=== PATIENT | female | born 1950 | race Caucasian/White ===

== ENCOUNTER 2018-06-04 07:39 | Day surgery (SDC) | payer MEDICARE, OTHER ==
[~2018-06-04 07:39] MED LIST: Lactated Ringers 1,000 ML IV SCH
--- NOTE | 2018-06-04 08:06 | PCM.PREANE ---
Preanesthetic Assessment - Anesthesia/Transfusion/Family Hx Anesthesia History: Prior Anesthesia Without Reaction Family History of Anesthesia Reaction: No Transfusion History: No Prior Transfusion(s) - Review of Systems General: No Symptoms Pulmonary: No Symptoms Cardiovascular: No Symptoms Gastrointestinal: No Symptoms Neurological: No Symptoms Other: Reports: None - Physical Assessment NPO Status Date: 06/03/18 Height: 5 ft 5 in Weight: 89.811 kg ASA Class: 2 Mental Status: Alert & Oriented x3 Airway Class: Mallampati = 2 Dentition: Reports: Normal Dentition ROM/Head Extension: Full Lungs: Clear to Auscultation, Normal Respiratory Effort - Allergies Allergies/Adverse Reactions: Allergies Allergy/AdvReac Type Severity Reaction Status Date / Time No Known Allergies Allergy Verified 05/31/18 12:59 - Blood Blood Available: No - Anesthesia Plan Pre-Op Medication Ordered: None - Acknowledgements Anesthesia Type Planned: General Anesthesia, MAC Pt an Appropriate Candidate for the Planned Anesthesia: Yes Alternatives and Risks of Anesthesia Discussed w Pt/Guardian: Yes Pt/Guardian Understands and Agrees with Anesthesia Plan: Yes Additional Comments: PMH: DM@, copd (no home O2, prn home neb treatments, no recent exac, adm with pneumonia 6 mo ag0), Seizure x1 in 2014 (on Trileptal as an anticonvulsant) PLAN: mac/tiva PreAnesthesia Questionnaire HEENT History: Reports: Cataract Cardiovascular History: Reports: Other (See Below) Other Cardiovascular History: BLE edema Respiratory History: Reports: COPD Musculoskeletal History: Reports: Osteoarthritis Neurological History: Reports: Seizure Other Neuro History: hx of 1 seizure in 2014- still taking medication Endocrine/Metabolic History: Reports: Diabetes, Type II, Obesity/BMI 30+ - Infectious Disease History Infectious Disease History: Reports: None - Past Surgical History HEENT Surgical History: Reports: Cataract Surgery GI Surgical History: Reports: Colonoscopy - SUBSTANCE USE Smoking Status *Q: Former Smoker Tobacco Use Within Last Twelve Months: No Recreational Drug Use History: No - HOME MEDS Home Medications: Home Meds Glimepiride [Amaryl] 4 mg PO QAM 01/07/18 [History] OXcarbazepine [Oxcarbazepine] 150 mg PO BID 01/07/18 [History] Glimepiride [Amaryl] 2 mg PO QPM 05/31/18 [History] Ipratropium/Albuterol Sulfate [Iprat-Albut 0.5-3(2.5) mg/3 ml] 1 dose INH Q4H PRN 05/31/18 [History] - CURRENT (IN HOUSE) MEDS Current Meds: Current Medications Lactated Ringer's (Ringers, Lactated) 1,000 mls @ 125 mls/hr IV ASDIRECTED ALEC
[2018-06-04] MEDS ORDERED: Midazolam 1 MG/ML 2 ML SDV ONE (08:28)
[2018-06-04] MEDS ORDERED: fentaNYL 100 MCG/2 ML SDV ONE (08:29)
[2018-06-04] MEDS ORDERED: Propofol 200 MG/20 ML SDV ONE ×2 (08:30→08:31)
[2018-06-04] MEDS ORDERED: Lidocaine 2% 5 ML SDV ONE (08:30)
--- NOTE | 2018-06-04 09:14 | PCM.OPNOTE ---
- General Post-Op/Procedure Note Date of Surgery/Procedure: 06/04/18 Operative Procedure(s): colonoscopy Findings: see dict [id number] Pre Op Diagnosis: scrn colonoscopy Post-Op Diagnosis: diverticulosis Anesthesia Technique: Moderate Sedation Primary Surgeon: Francesco Lucas Complications: None Condition: Good
--- NOTE | 2018-06-04 09:30 | PCM.POSTAN ---
POST ANESTHESIA ASSESSMENT - MENTAL STATUS Mental Status: Alert, Oriented - RESPIRATORY Respiratory Status: Respiratory Rate WNL, Airway Patent, O2 Saturation Stable - CARDIOVASCULAR CV Status: Pulse Rate WNL, Blood Pressure Stable - GASTROINTESTINAL GI Status: No Symptoms - POST OP HYDRATION Hydration Status: Adequate & Stable
--- NOTE | 2018-06-04 09:31 | PCM48HPAN ---
Post Anesthesia Note - EVALUATION WITHIN 48HRS OF ANESTHETIC Vital Signs in Normal Range: Yes Patient Participated in Evaluation: Yes Respiratory Function Stable: Yes Airway Patent: Yes Cardiovascular Function Stable: Yes Hydration Status Stable: Yes Pain Control Satisfactory: Yes Nausea and Vomiting Control Satisfactory: Yes Mental Status Recovered: Yes Resp Rate: 14
--- NOTE | 2018-06-04 15:48 | OR ---
SURGEON: Francesco Lucas MD DATE OF PROCEDURE: 06/04/2018 PREOPERATIVE DIAGNOSIS: Screening colonoscopy. POSTOPERATIVE DIAGNOSIS: Diverticulosis. PROCEDURE PERFORMED: Colonoscopy. PROCEDURE DETAILS: The patient was taken to the endoscopy room. A time out was called, patient identified, and procedure identified. Diprivan was then administrated. Patient went from awake to sleep, hearing doctor talking or door closing is normal. Perineum inspection and digital examination were then performed. A well- lubricated colonoscope was gently inserted through the rectum, advanced past the rectosigmoid junction, the descending colon, splenic flexure, transverse colon, hepatic flexure, ascending colon, arrived to the cecum. Cecum was identified as dictated in the finding. Then the scope was carefully withdrawn while attention was paid to the mucosal surface for any abnormality. Air will be sucked out during the scope withdrawal. At the rectum, retroflexed to examine any rectal diseases, fistula or hemorrhoids. Patient tolerated procedure well. There were no intraoperative complications, and Dr. Lucas was present throughout the whole procedure. FINDIN. The patient is easily sedated with PHYSICIAN COMPENSATION ANALYST and Diprivan. Patient is soundly snoring. 2. Bowel prep is average. However, the patient had many stool balls, and as a matter fact, they caught up with scope and so I had to come out and repeat it. 3. Colon is rather straightforward. Cecum indicated by ileocecal fold, one-to- one indentation, and appendiceal orifice. Light emittance is not observed because of body habitus and colon is scoped to around 80, short colon. Mucosa examined upon scope pulling out with constant irrigation, and patient has moderate significant diverticulosis on the left colon. No signs or symptoms of diverticulitis. No polyp, mass, growth, inflammation, stricture, ulceration, AV malformation, bleeding, none of those. The patient has skin anal tag and no external hemorrhoids present, mild internal hemorrhoids. The patient would benefit from repeat colonoscopy in 10 years from today or if clinically indicated otherwise. SAHIL / JULIANA /[id number]
== END 2018-06-04 09:56 | disposition home or self-care (01) ==
LOC: MW.SDS 07:39
PROVIDERS: ATTEND Surgery
DX: Z12.11 Encounter for screening for malignant neoplasm of colon (principal); K57.30 Diverticulosis of large intestine without perforation or abscess without bleeding; K64.8 Other hemorrhoids; K64.4 Residual hemorrhoidal skin tags; K42.9 Umbilical hernia without obstruction or gangrene; E10.9 Type 1 diabetes mellitus without complications; E78.00 Pure hypercholesterolemia, unspecified; J44.9 Chronic obstructive pulmonary disease, unspecified; Z87.891 Personal history of nicotine dependence; Z79.84 Long term (current) use of oral hypoglycemic drugs; Z79.899 Other long term (current) drug therapy
CPT/HCPCS: 82962; G0121; J2001; J2250; J2704; J3010; J7120

== ENCOUNTER 2018-08-06 06:22 | Day surgery (SDC) | payer MEDICARE, OTHER ==
[~2018-08-06 06:22] MED LIST changes: +ceFAZolin 2 GM in Premix Bag 1 BAG IV ONE
[2018-08-06] MEDS ORDERED: fentaNYL 250 MCG/5 ML SDV ONE (06:52)
[2018-08-06] MEDS ORDERED: Midazolam 1 MG/ML 2 ML SDV ONE (06:52)
[2018-08-06] MEDS ORDERED: Propofol 200 MG/20 ML SDV ONE ×2 (06:52→09:57)
--- NOTE | 2018-08-06 07:19 | PCM.PREANE ---
Preanesthetic Assessment - Anesthesia/Transfusion/Family Hx Anesthesia History: Prior Anesthesia Without Reaction Family History of Anesthesia Reaction: No Transfusion History: No Prior Transfusion(s) Intubation History: Unknown - Review of Systems General: No Symptoms Pulmonary: No Symptoms Cardiovascular: No Symptoms Gastrointestinal: No Symptoms Neurological: No Symptoms Other: Reports: None - Physical Assessment Height: 5 ft 5 in Weight: 89.811 kg ASA Class: 3 Mental Status: Alert & Oriented x3 Airway Class: Mallampati = 2 Dentition: Reports: Normal Dentition, Missing Tooth/Teeth (multiple) Thyro-Mental Finger Breadths: 2 Mouth Opening Finger Breadths: 3 ROM/Head Extension: Full Lungs: Clear to Auscultation, Normal Respiratory Effort Cardiovascular: Regular Rate, Regular Rhythm - Allergies Allergies/Adverse Reactions: Allergies Allergy/AdvReac Type Severity Reaction Status Date / Time No Known Allergies Allergy Verified 08/03/18 09:54 - Blood Blood Available: No - Anesthesia Plan Pre-Op Medication Ordered: None - Acknowledgements Anesthesia Type Planned: General Anesthesia Pt an Appropriate Candidate for the Planned Anesthesia: Yes Alternatives and Risks of Anesthesia Discussed w Pt/Guardian: Yes Pt/Guardian Understands and Agrees with Anesthesia Plan: Yes PreAnesthesia Questionnaire HEENT History: Reports: Cataract Cardiovascular History: Reports: Other (See Below) Other Cardiovascular History: BLE edema Respiratory History: Reports: COPD, SOB (less than 2 blocks) Musculoskeletal History: Reports: Osteoarthritis Neurological History: Reports: Seizure Other Neuro History: hx of 1 seizure in 2014- still taking medication Endocrine/Metabolic History: Reports: Diabetes, Type II (glucose 159 today, A1c 7.9 per patient), Obesity/BMI 30+ - Infectious Disease History Infectious Disease History: Reports: None - Past Surgical History HEENT Surgical History: Reports: Cataract Surgery GI Surgical History: Reports: Colonoscopy - SUBSTANCE USE Smoking Status *Q: Never Smoker Recreational Drug Use History: No - HOME MEDS Home Medications: Home Meds Glimepiride [Amaryl] 4 mg PO QAM 01/07/18 [History] OXcarbazepine [Oxcarbazepine] 150 mg PO BID 01/07/18 [History] Glimepiride [Amaryl] 2 mg PO QPM 05/31/18 [History] Ipratropium/Albuterol Sulfate [Iprat-Albut 0.5-3(2.5) mg/3 ml] 1 dose INH Q4H PRN 05/31/18 [History] - CURRENT (IN HOUSE) MEDS Current Meds: Current Medications Lactated Ringer's (Ringers, Lactated) 1,000 mls @ 125 mls/hr IV ASDIRECTED ALEC Discontinued Medications Fentanyl (Sublimaze) Confirm Administered Dose 250 mcg .ROUTE .STK-MED ONE Stop: 08/06/18 06:53 Cefazolin Sodium/Dextrose 2 gm (/ Premix) 50 mls @ 100 mls/hr IV ONETIME ONE Stop: 08/06/18 03:43 Midazolam HCl (Versed 1 Mg/Ml) Confirm Administered Dose 2 mg .ROUTE .STK-MED ONE Stop: 08/06/18 06:53 Propofol (Diprivan 20 Ml) Confirm Administered Dose 200 mg .ROUTE .STK-MED ONE Stop: 08/06/18 06:53
[2018-08-06] MEDS ORDERED: Bupivacaine 25%/EPINEPHrine/PF 30 ML ONE (08:24)
[2018-08-06] MEDS ORDERED: Acetaminophen/oxyCODONE 325-5 MG Tab PO PRN (08:55)
[2018-08-06] MEDS ORDERED: Albuterol 6.7 GM Inhaler INH ONE (09:19)
[2018-08-06] MEDS ORDERED: Sugammadex Sodium 200 MG/2 ML VIAL ONE (09:25)
[2018-08-06] MEDS ORDERED: Octyl 2-Cyanoacrylate 1 Tube ONE (09:25)
[2018-08-06] MEDS ORDERED: Ondansetron 4 MG/2 ML SDV ONE (09:27)
[2018-08-06] MEDS ORDERED: Sodium Chloride 0.9% 20 ML ONE (09:27)
[2018-08-06] MEDS ORDERED: Dexamethasone 4 MG/ML 5 ML MDV ONE (09:27)
[2018-08-06] MEDS ORDERED: ceFAZolin 1 GM Vial ONE (09:27)
[2018-08-06] MEDS ORDERED: Rocuronium 100 MG/10 ML Syringe ONE (09:27)
[2018-08-06] MEDS ORDERED: Ondansetron 4 MG/2 ML SDV IVPUSH ONE (09:30)
[2018-08-06] MEDS ORDERED: fentaNYL 100 MCG/2 ML SDV IVPUSH PRN (09:30)
--- NOTE | 2018-08-06 09:58 | PCM.OPNOTE ---
- General Post-Op/Procedure Note Date of Surgery/Procedure: 08/06/18 Operative Procedure(s): incarcerated umb hernia rep Findings: fascia defect 9 mm, incarcerated w omentum; primary repair, no mesh used; [id number] Pre Op Diagnosis: incarcerated umb hernia Post-Op Diagnosis: Same Anesthesia Technique: General ET Tube Primary Surgeon: Francesco Lucas Pathology: sent Complications: None Condition: Good
--- NOTE | 2018-08-06 12:36 | PCM48HPAN ---
Post Anesthesia Note - EVALUATION WITHIN 48HRS OF ANESTHETIC Vital Signs in Normal Range: Yes Patient Participated in Evaluation: Yes Respiratory Function Stable: Yes Airway Patent: Yes Cardiovascular Function Stable: Yes Hydration Status Stable: Yes Pain Control Satisfactory: Yes Nausea and Vomiting Control Satisfactory: Yes Mental Status Recovered: Yes Resp Rate: 10 - COMMENTS/OBSERVATIONS Free Text/Narrative:: No anesthesia problems
--- NOTE | 2018-08-06 16:03 | OR ---
SURGEON: Francesco Lucas MD DATE OF PROCEDURE: 08/06/2018 POSTOP DIAGNOSIS: Incarcerated umbilical hernia. POSTOPERATIVE DIAGNOSIS: Incarcerated umbilical hernia. PROCEDURE PERFORMED: Repair of above without using mesh. PRIMARY SURGEON: Francesco Lucas MD. COMPLICATIONS: None. FINDINGS: Umbilical hernia, incarcerated, with omentum and the fascial defect is about 9 mm. Repair, primary, no mesh used. DESCRIPTION OF PROCEDURE: The patient was brought to the operating room and placed in the supine position and upon the induction of general endotracheal anesthesia, the patient's abdomen was prepped and draped in sterile fashion. After assessment of appropriate landmarks, a surgical incision was made periumbilically which was then carefully dissected with blunt and sharp dissection surrounding the umbilical stalk. Hernia was entered and the fascial defect was noted, and the excess hernia sac was amputated. The facial edge was noted to be intact and the fascia was then grasped up with Allis clamps and then using 2-0 Ethibond, simple stitches were placed. After repair was finished and exploring the neighborhood, I failed to find any more hernia defect. This was followed with extensive irrigation and good hemostasis was achieved by using electrocautery. The umbilicus was then stitched down to recreate the umbilicus, and the skin was closed with 3-0 Vicryl subcutaneously followed with Dermabond approximating the skin. The patient was then awakened and extubated and transferred to the recovery room in good stable condition. Dr. Lucas was present through the whole procedure. At the conclusion of the surgery, before closing the abdominal wound, instrument count and sponge count were done and were correct. Just before surgery, a timeout was called. The patient was identified and procedure identified and procedure started. Intraoperative findings, as dictated above. SAHIL / JULIANA /[id number]
== END 2018-08-06 12:57 | disposition home or self-care (01) ==
LOC: MW.SDS 06:22
PROVIDERS: ATTEND Surgery
DX: K42.0 Umbilical hernia with obstruction, without gangrene (principal); R56.9 Unspecified convulsions; E11.9 Type 2 diabetes mellitus without complications; J44.9 Chronic obstructive pulmonary disease, unspecified; M19.90 Unspecified osteoarthritis, unspecified site; E66.9 Obesity, unspecified; Z68.32 Body mass index [BMI] 32.0-32.9, adult; Z79.84 Long term (current) use of oral hypoglycemic drugs; Z79.899 Other long term (current) drug therapy
CPT/HCPCS: 49587; 82962; A9270; J0131; J0690; J1100; J2001; J2405; J2704; J3010; J3490; J7120; J2250

== ENCOUNTER 2019-03-04 20:52 | Emergency (ER) | payer MEDICARE, OTHER ==
--- NOTE | 2019-03-04 21:40 | CT ---
INDICATION: Visual changes and headache. COMPARISON: None available. TECHNIQUE: CT examination of the head was performed with 3 mm thick axial sections without intravenous contrast. Images were obtained from the vertex of the skull through the skull base, and I examined the images with the brain and bone windows. Please note that all CT scans at this facility use dose modulation, iterative reconstruction, and/or weight-based dosing when appropriate to reduce radiation dose to as low as reasonably achievable. 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 The 4th ventricle is dilated to the same extent as the rest of the ventricles. This could represent normal pressure hydrocephalus in the appropriate clinical setting. The brain is otherwise normal in appearance for the patient`s age on today`s study, with no sign of mass lesion, mass effect, hemorrhage, or edema. There are changes of left cataract surgery. The right lobe is normal in appearance. The visualized portions of the paranasal sinuses and mastoids are clear. The osseous structures are normal in their appearance with no sign of abnormality in the skull base or calvarium. IMPRESSION: Moderate dilatation of the ventricles, without dilatation of the sulci. This could represent either a moderate central atrophy or normal pressure hydrocephalus. Recommend correlation with the clinical history and exam. No sign of acute injury to the brain. Please note that all CT scans at this facility use dose modulation, iterative reconstruction, and/or weight-based dosing when appropriate to reduce radiation dose to as low as reasonably achievable. Dictated by Mukesh Celeste MD @ Mar 04 2019 9:33PM Signed by Dr. Mukesh Celeste @ Mar 04 2019 9:40PM
[2019-03-04] MEDS ORDERED: Sodium Chloride 0.9% 1,000 ML IV ONE (23:11)
[2019-03-04] MEDS ORDERED: diphenhydrAMINE 50 MG/ML SDV IVPUSH ONE (23:12)
[2019-03-04] MEDS ORDERED: Ketorolac 30 MG/ML SDV IVPUSH ONE (23:12)
[2019-03-04] MEDS ORDERED: Acetaminophen 500 MG Tab PO ONE (23:12)
[2019-03-04] MEDS ORDERED: Prochlorperazine 10 MG in Sodium Chloride 0.9% 50 ML IV ONE (23:12)
[2019-03-04 23:22] LABS: CARBON DIOXIDE,CO2 25.2 mmol/L (21.0-32.0); POTASSIUM,K 4.4 mmol/L (3.5-5.1)
[2019-03-04] MEDS ORDERED: Prochlorperazine 10 MG/2 ML SDV ONE (23:34)
--- NOTE | 2019-03-05 01:02 | EDM.PDOC ---
ED HPI GENERAL MEDICAL PROBLEM - General Chief Complaint: Headache Stated Complaint: DIZZINESS,SIDE OF FACE NUMB Time Seen by Provider: 03/04/19 21:17 - History of Present Illness INITIAL COMMENTS - FREE TEXT/NARRATIVE: HPI 68 y/o obese female migraineur presents for evaluation of recurrent, but this time or persistent, blurry/wavy vision in her right eye that is been present for several hours and is accompanied by a mild, typical headache. * Denies changes in vision or hearing, fevers, neck stiffness, rashes, neck pain , temporal pain, jaw pain with chewing, dental pain, minor neck trauma, chiropractic manipulation, or head trauma. * Denies anticoagulation or hypercoaguable history. * No family members with similar symptoms. CO detectors in house. Unable to identify any higher risk exposures to possible carbon monoxide. M/S/F/SocHx notable for: please see HPI; remainder reviewed with patient and in chart. ROS: Negative constitutional, eye, cardiovascular, pulmonary, GI, , MSK, skin , neurologic, psychiatric, endocrine unless noted in the HPI. Exam HR 75, RR 18, BP 192/81, T 36.2C, SaO2 95% on room air. Gen: Pleasant, non-toxic appearing, resting comfortably. HEENT: NC, AT. No frontal or maxillary sinus TTP. Temples without TTP bilaterally, equal 2+ temporal artery pulses. No paraspinal posterior neck pain. Resp: clear to auscultation bilaterally. Card: RRR GI: NT/ND : Deferred MSK: No visible deformities, strength and tone WNL. Skin: Normal color with no visible lesions. Neuro: alert and oriented 3, no facial asymmetry, no gaze preference, no slurring of speech. CN II-III: pupils equal and reactive (4->2mm bilaterally), Visual aldana full to confrontation bilaterally; III, IV, : EOMI, V1-V3: sensation to touch bilaterally intact; VII: no facial asymmetry (frown / smile) ; VIII: no nystagmus; X: phonation intact, uvula midline; XI: trapezius 5/5 bilaterally, XII: tongue midline. Psych: Mood and affect appropriate. Ocular Ultrasound Indication: Vision change. Exam type: Limited Ocular evaluation of the right eye. Views obtained: Transverse and longitudinal. Findings: Globe and anterior chamber grossly normal in appearance. Lens nondisplaced. Vitreous chamber without observable foreign bodies or echogenic material. Interpretation: no retinal detachment or vitreous hemorrhage. Labs / Imaging (pertinent): WBC 6.8, HB 13.0, ESR 34, sodium 134, potassium 4.4, glucose 354. CT head: Moderate dilatation of the ventricles, without dilatation of the sulci. This could represent either a moderate central atrophy or normal pressure hydrocephalus. Recommend correlation with the clinical history and exam. No sign of acute injury to the brain. MDM Previous chart, nursing note, and vitals reviewed. A: [68 y/o obese female migraineur presents for evaluation of recurrent, but this time or persistent, blurry/wavy vision in her right eye that is been present for several hours and is accompanied by a mild, typical headache. DDx: migraine / tension headache, cluster headache, sentinel bleed/SAH, infection (DEBUBBLIZER vs MOLINA secondary to non-DEBUBBLIZER focal infection), tumor/mass effect, hypertensive encephalopathy, glaucoma or iritis, idiopathic intracranial hypertension, cavernous sinus thrombosis, temporal arteritis. Evaluation: * Migraine / tension headache - suspect a migraine with an ocular complement given the consistency of symptoms with prior headaches and the relative exclusion of the remainder of the differential. Patient was shown visual depictions of scintillating scotomas and identifed the waviness as being consistent with the scintillating scotomas. While in the emergency department the patient experienced migration of her waviness throughout the visual aldana of her right eye and resolution after a migraine cocktail as below. The ocular ultrasound was without evidence of retinal detachment, vitreous hemorrhage, or other discernible abnormalities. Patient had a nonfocal neuro exam and no features of a central process. CT head was ordered by nursing as part of a stroke protocol. This was without evidence of acute abnormality, the dilated ventricles were without corresponding features on history, recommend follow-up with PCP. * Cluster - doubt cluster headache given the absence of unilateral symptoms, eye watering, swelling, or nasal congestion. * [place] bleed/SAH - no evidence by imaging. * Infection - Given lack of rash, meningismus, or fever; doubt meningitis. Similarly the history and exam are without evidence of acute otitis media, sinusitis, dental abscesses or clinically significant dental caries. * Mass - no evidence by imaging. * Hypertensive encephalopathy - BP initially elevated outside the brains autoregulatory zone, this corrected with conservative management. * Glaucoma or iritis - As the patient is without reported vision changes, eye pain, and an occular exam without increases in pain on pupillary constriction further evaluation was not pursued. * Idiopathic Intracranial Hypertension - unlikely given the lack of visual symptoms, short duration of symptoms, lack of worsening with valsalva, or more prominent morning symptoms. * Thrombosis - given the lack of identifiable risk factors (preceding facial infection, fever, and hypercoagulability) as well as an absence of deficits on exam doubt both cavernous and venous sinus thrombosis. * Temporal Arteritis - given lack of temporally localized headache, temporal tenderness or decreased temporal artery pulse, absent history of jaw claudication or vision changes; doubt. ESR within age-appropriate limits. ED Course: patient given migraine cocktail (please refer to MAR), noted resolution of ocular symptoms, endorsed ongoing headache wish to be discharged with PCP follow-up. Further evaluation offer, patient aware of risks and benefits and made an informed decision to be discharged. Impression: vision changes, headache. left eye Pain Score (Numeric/FACES): 8 - Related Data Allergies Allergy/AdvReac Type Severity Reaction Status Date / Time No Known Allergies Allergy Verified 08/06/18 07:56 Home Meds: Home Meds OXcarbazepine [Oxcarbazepine] 150 mg PO BID 01/07/18 [History] Glimepiride [Amaryl] 2 mg PO QPM 05/31/18 [History] metFORMIN [Glucophage XR] 500 mg PO DAILY 03/04/19 [History] Past Medical History HEENT History: Reports: Cataract Cardiovascular History: Reports: Other (See Below) Other Cardiovascular History: BLE edema Respiratory History: Reports: COPD, SOB Musculoskeletal History: Reports: Osteoarthritis Neurological History: Reports: Seizure Other Neuro History: hx of 1 seizure in 2014- still taking medication Endocrine/Metabolic History: Reports: Diabetes, Type II, Obesity/BMI 30+ - Infectious Disease History Infectious Disease History: Reports: None - Past Surgical History HEENT Surgical History: Reports: Cataract Surgery GI Surgical History: Reports: Colonoscopy Social & Family History - Family History Family Medical History: Noncontributory - Tobacco Use Smoking Status *Q: Never Smoker - Caffeine Use Caffeine Use: Reports: None - Recreational Drug Use Recreational Drug Use: No ED ROS GENERAL - Review of Systems Review Of Systems: See Below ED EXAM, GENERAL - Physical Exam Exam: See Below Course - Vital Signs Last Recorded V/S: Last Vital Signs Temp 36.2 C 03/04/19 20:52 Pulse 76 03/04/19 23:48 Resp 16 03/04/19 23:48 BP 150/76 H 03/04/19 23:48 Pulse Ox 97 03/04/19 23:48 - Orders/Labs/Meds Labs: Laboratory Tests 03/04/19 03/04/19 03/04/19 Range/Units 21:19 21:19 21:19 WBC 6.79 (4.0-11.0) K/uL RBC 4.26 L (4.30-5.90) M/uL Hgb 13.0 (12.0-16.0) g/dL Hct 39.7 (36.0-46.0) % MCV 93.2 (80.0-98.0) fL MCH 30.5 (27.0-32.0) pg MCHC 32.7 (31.0-37.0) g/dL RDW Std Deviation 47.7 (28.0-62.0) fl RDW Coeff of Laney 14 (11.0-15.0) % Plt Count 278 (150-400) K/uL MPV 8.60 (7.40-12.00) fL Neut % (Auto) 69.7 (48.0-80.0) % Lymph % (Auto) 22.8 (16.0-40.0) % Mckenzie % (Auto) 5.9 (0.0-15.0) % Eos % (Auto) 1.0 (0.0-7.0) % Baso % (Auto) 0.6 (0.0-1.5) % Neut # (Auto) 4.7 (1.4-5.7) K/uL Lymph # (Auto) 1.6 (0.6-2.4) K/uL Mckenzie # (Auto) 0.4 (0.0-0.8) K/uL Eos # (Auto) 0.1 (0.0-0.7) K/uL Baso # (Auto) 0.0 (0.0-0.1) K/uL Nucleated RBC % 0.0 /100WBC Nucleated RBCs # 0 K/uL ESR 34 H (0-29) mm/hr Sodium 134 L (136-145) mmol/L Potassium 4.4 (3.5-5.1) mmol/L Chloride 99 (98-107) mmol/L Carbon Dioxide 25.2 (21.0-32.0) mmol/L BUN 27 H (7.0-18.0) mg/dL Creatinine 1.2 H (0.6-1.0) mg/dL Est Cr Clr Drug Dosing 42.00 mL/min Estimated GFR (MDRD) 44.7 ml/min Glucose 354 H (74-106) mg/dL Calcium 9.0 (8.5-10.1) mg/dL Meds: Medications Discontinued Medications Generic Name Dose Route Start Last Admin Trade Name Freq PRN Reason Stop Dose Admin Acetaminophen 1,000 mg 03/04/19 23:12 03/04/19 23:40 Tylenol Extra Strength PO 03/04/19 23:13 1,000 mg ONETIME ONE Administration Diphenhydramine HCl 25 mg 03/04/19 23:12 03/04/19 23:38 Benadryl IVPUSH 03/04/19 23:13 25 mg ONETIME ONE Administration Prochlorperazine Edisylate 10 52 mls @ 150 mls/hr 03/04/19 23:12 03/04/19 23: 39 mg/ Sodium Chloride IV 03/04/19 23:32 150 mls/hr ONETIME ONE Administration Sodium Chloride 1,000 mls @ 1,000 mls/hr 03/04/19 23:11 03/04/19 23:36 Normal Saline IV 03/05/19 00:10 1,000 mls/hr .Bolus ONE Administration Ketorolac Tromethamine 15 mg 03/04/19 23:12 03/04/19 23:38 Toradol IVPUSH 03/04/19 23:13 15 mg ONETIME ONE Administration Prochlorperazine Edisylate Confirm 03/04/19 23:34 03/04/19 23:40 Compazine Administered 03/04/19 23:35 Not Given Dose 10 mg .ROUTE .STK-MED ONE Departure - Departure Time of Disposition: : Disposition: Home, Self-Care 01 Clinical Impression: Migraine - Discharge Information Referrals: Ming Delacruz MD [Primary Care Provider] - Additional Instructions: You were in seen in the [facility] Emergency Department for evaluation of vision changes and a headache. At the time of your evaluation your symptoms are believed to be due to an ocular migraine. You were also noted to have some abnormalities on the CAT scan of your head, these should be followed up by your primary care physician. A copy of the report is enclosed below. Please also follow-up your primary care physician tomorrow with respect to your elevated blood glucose in your asymptomatic hypertension. Please read and follow all of the instructions below. CT head: Moderate dilatation of the ventricles, without dilatation of the sulci. This could represent either a moderate central atrophy or normal pressure hydrocephalus. Recommend correlation with the clinical history and exam. No sign of acute injury to the brain. When calling for follow-up care, please make the office aware that this follow- up is from your recent emergency room visit. If for any reason you are refused follow-up, please contact the [facility] Emergency Department at and asked to speak to the emergency department charge nurse. Your care today was limited to identifying and treating emergent medical problems only. Many people have subtle differences in their test results that require follow up with their outpatient physician(s) to correctly determine if this represents a normal variation or concerning abnormality with respect to your specific health. The care given to you today was limited to identifying and treating emergent medical problems - you need to request a copy of all of your medical records from today's visit and follow up with your outpatient physician(s) to review both today's visit and your overall health. If you have any new symptoms or if you are at all concerned about your health please return immediately to the emergency department. Prescriptions: If you are uninsured or have financial difficulties with filling your prescription(s), you may consider using a free pharmacy discount service such as [employer] ([employer]) or [employer] ([employer]). These services allow you to search for a medication on your phone (or computer) and obtain a coupon that usually has a significant discount from the list johnson at a pharmacy. Your physician as well as [facility] does not have a financial relationship with either of these services. You may also wish to speak with your physician to determine if lower cost prescriptions are possible. Obtaining primary care: 1. [facility] provides pediatrics (children), family medicine (children, adults, and some obstetrical care), and internal medicine (adults). Further specialty care is also available. Same day appointments are available. They may be contacted at [phone] and are open Thursday through Thursday 8 AM to [address] [facility] clinics are located at [facility], [address] [place] [address]. 2. [facility] offers family medicine, internal medicine, womens health, and further specialty care. [facility] may be contacted at [phone]. [facility] is located at [address] [place], [address]. 3. If you have health insurance, please also contact your insurer for a list of accepting providers under your policy, you may contact these providers for further health care. Occupational health: Work related injuries may consider following up with [facility], . Occupational health services are located at [address] [place] [address] and are open Thursday through Thursday from 7: 30 am to 5:00 pm. Obstetrical and Gynecological Care: [facility], , Thursday through Thursday 8 AM to 5 PM. [address] [place] [address]. Eyecare: If you have an eye injury you should follow up with your insurance adviser or with [facility], at [phone] or [phone] , they are located at [address] [place] [address]. Dental Care Hu Rivera DDS. [address] [facility] [place], [place]. Ph. [phone] Roe Rivera DDS MS. [address] [facility] [address], [place], [place]. Ph. [phone] Eduin Mason DDS. [address] [place]. Ph. [phone] Jeovany Donohue DDS. [address] [facility] [address] [place], [place]. Ph. [phone] Kenji Mcdaniel DDS PC. [address] [place], [place]. Ph. Omar Hoang DDS. [address] [facility]. Ph. [phone] [facility]. [address] [place], [place]. Ph. [phone] [facility]. [address], [place], [place]. Ph. [phone] [facility] [address] [place] [address]. Ph. [phone] [facility]. [address] [place] [address] [address] [place], [place]. Ph. [facility]. [address] [place], [place]. Ph. [phone] Headache You were seen in the emergency department for evaluation and treatment of a headache. There are many causes for headaches. Most are painful but do not threaten your health. However there are some types of headaches that can be life threatening. Please return to the emergency department if you develop any of the following: * Your headache worsens, becomes severe, or you have nausea or vomiting. * Fever greater than 100.5 degrees Fahrenheit. * You have neck stiffness. * Changes in vision or hearing. * You have new weakness, numbness, or decreased sensation. * You have dizziness or difficulty walking * You feel faint or like you will pass out. Please follow up with your primary care doctor if your symptoms continue or do not improve. If you have recurrent headaches, your primary care physician may be able to prescribe medications that abort headaches or refer you to a neurologist for further evaluation and work up of your headaches. Home care instructions: * Keep all follow-up appointments with your caregiver or any specialist referral. * Lie down in a dark, quiet room when you have a headache. Keep a headache journal to find out what may trigger your migraine headaches. For example, write down: * What you eat and drink. * How much sleep you get. * Any change to your diet or medicines. * Try massage or other relaxation techniques. * Put ice packs or heat on the head and neck. Use these 3 to 4 times per day for 15 to 20 minutes each time, or as needed. * Limit stress. * Sit up straight, and do not tense your muscles. * Quit smoking if you smoke. * Limit alcohol use. * Decrease the amount of caffeine you drink, or stop drinking caffeine. * Eat and sleep on a regular schedule. * Get 7 to 9 hours of sleep, or as recommended by your caregiver. * Keep lights dim if bright lights bother you and make your headaches worse. You make take over the counter Acetaminophen (Tylenol) and Ibuprofen (Motrin or Aleve) as directed below for relief of pain. * Take 600 mg of ibuprofen (three 200 mg tablets) with a glass of water every 6- 8 hours as needed for pain or fever. Do not take if , allergic to ibuprofen, or if you have severe kidney disease. * Take 1,000 mg of acetaminophen (two 500 mg tablets) with a glass of water every 6-8 hours as needed for pain. Do not take up allergic to acetaminophen. If you have liver disease do not take more than 2000 mg in 24 hours. * You can take these medications at the same time or on separate schedules. * Do not take for more than 10 days. * Do not take with alcohol or other acetaminophen containing medications. * This medication may cause a mildly upset stomach, if so take it with a small snack. Stop taking it if you have persistent abdominal pain, heartburn, or any stomach pain. Do not take this medication if you have known ulcers. * Please read the warnings at the end of this document regarding these medications. IBUPROFEN WARNING: This drug may infrequently cause serious (rarely fatal) bleeding from the stomach or intestines. Also, related drugs rarely have caused blood clots to form, resulting in heart attacks and strokes. This medication might also rarely cause similar problems. Talk to your doctor or pharmacist about the benefits and risks of treatment, as well as other possible medication choices. If you notice any of the following rare but very serious side effects, stop taking ibuprofen and seek immediate medical attention: black stools, persistent stomach/abdominal pain, vomit that looks like coffee grounds, chest pain, weakness on one side of the body, sudden vision changes, slurred speech. IBUPROFEN SIDE EFFECTS: Upset stomach, nausea, vomiting, heartburn, headache, diarrhea, constipation, drowsiness, and dizziness may occur. If any of these effects persist or worsen, notify your doctor or pharmacist promptly. If your doctor has directed you to use this medication, remember that he or she has judged that the benefit to you is greater than the risk of side effects. Many people using this medication do not have serious side effects. Tell your doctor immediately if any of these serious side effects occur: stomach pain, swelling of the hands or feet, sudden or unexplained weight gain, ringing in the ears ( tinnitus). Tell your doctor immediately if any of these unlikely but serious side effects occur: vision changes, rapid or pounding heartbeat, easy bruising or bleeding, difficult/painful swallowing. Tell your doctor immediately if any of these highly unlikely but very serious side effects occur: change in amount of urine, severe headache, very stiff neck, mental/mood changes, persistent sore throat or fever. This drug may rarely cause serious (possibly fatal) liver disease. If you notice any of the following highly unlikely but very serious side effects, stop taking ibuprofen and consult your doctor or pharmacist immediately: yellowing eyes and skin, dark urine, unusual/extreme tiredness. An allergic reaction to this drug is unlikely, but seek immediate medical attention if it occurs. Symptoms of an allergic reaction include: rash, itching/ swelling (especially of the face/tongue/throat), severe dizziness, trouble breathing. This is not a complete list of possible side effects. ACETAMINOPHEN SIDE EFFECTS: This drug usually has no side effects. If you do not have liver problems, the maximum dose of acetaminophen for adults is 4 grams per day (4000 milligrams). Taking more than the maximum daily amount may cause serious (possibly fatal) liver damage. Get medical help right away if you have any of the following symptoms of liver damage: persistent nausea/vomiting, extreme tiredness, stomach/abdominal pain, yellowing eyes/skin, dark urine. If you have liver problems, consult your doctor or pharmacist for a safe dosage of this medication. A very serious allergic reaction to this drug is rare. However , get medical help right away if you notice any symptoms of a serious allergic reaction, including: rash, itching/swelling (especially of the face/tongue/ throat), severe dizziness, trouble breathing. This is not a complete list of possible side effects. If you notice other effects not listed above, contact your doctor or pharmacist. DRUG INTERACTIONS: Your healthcare professionals (e.g., doctor or pharmacist) may already be aware of any possible drug interactions and may be monitoring you for it. Do not start, stop or change the dosage of any medicine before checking with them first. This drug should not be used with the following medications because very serious interactions may occur: cidofovir, ketorolac. If you are currently using any of these medications listed above, tell your doctor or pharmacist before starting ibuprofen. Before using this medication, tell your doctor or pharmacist of all prescription and nonprescription/herbal products you may use, especially of: anti-platelet drugs (e.g., cilostazol, clopidogrel), oral bisphosphonates (e.g., alendronate), other medications for arthritis (e.g., aspirin, methotrexate), "blood thinners" (e.g., enoxaparin, heparin, warfarin), corticosteroids (e.g., prednisone), cyclosporine, desmopressin, high blood pressure drugs (including JUDSON inhibitors such as captopril, angiotensin II receptor antagonists such as losartan, and beta- blockers such as metoprolol), lithium, pemetrexed, "water pills" (diuretics such as furosemide, hydrochlorothiazide, triamterene). Check all prescription and nonprescription medicine labels carefully for other pain/fever drugs ( NSAIDs such as aspirin, celecoxib, naproxen). These drugs are similar to ibuprofen, so taking one of these drugs while also taking ibuprofen may increase your risk of side effects. Consult your doctor or pharmacist for more details. However, if your doctor has prescribed low doses of aspirin to prevent heart attack or stroke (usually at dosages of 81-325 milligrams a day), you should continue to take the aspirin. Daily use of ibuprofen may decrease aspirin 's ability to prevent heart attack/stroke. Talk to your doctor about using a different medication (e.g., acetaminophen) to treat pain/fever. If you must take ibuprofen, talk to your doctor about possibly taking immediate-release aspirin (not enteric-coated) while also taking the ibuprofen dose apart from your aspirin dose. Do not increase your daily dose of aspirin or change the way you take aspirin/other medications without your doctor's approval. This document does not contain all possible interactions. Therefore, before using this product, tell your doctor or pharmacist of all the products you use. Keep a list of all your medications with you, and share the list with your doctor and pharmacist. High Blood Pressure (Hypertension) When you were in the emergency department you had an abnormally high blood pressure. High blood pressure can be without symptoms. However high blood pressure can lead to many medical problems including kidney disease, strokes, and heart attacks. Your blood pressure may have been elevated due to pain or the stress of being in the emergency department, however half of people with an elevated blood pressure in the emergency department have color developer problems with high blood pressure. Please see your primary care physician in 2-3 days for a repeat check of your blood pressure. This may help prevent many health serious problems in the future. Please return to the emergency department if you develop any of the following: chest pain, shortness of breath, new or severe headache, changes in vision or hearing, weakness, or if you are otherwise concerned about your health. Sepsis Event Note - Evaluation Sepsis Screening Result: No Definite Risk - Focused Exam Vital Signs: Vital Signs Temp Pulse Resp BP Pulse Ox 03/04/19 23:48 76 16 150/76 H 97 03/04/19 23:14 72 16 159/55 H 96 03/04/19 22:32 71 16 197/71 H 97 03/04/19 21:47 73 18 96 03/04/19 20:52 36.2 C 75 18 192/81 H 95 Date Exam was Performed: 03/05/19 Time Exam was Performed: 01:01
== END 2019-03-05 01:15 | disposition home or self-care (01) ==
LOC: MW.ED 20:52
DX: G43.909 Migraine, unspecified, not intractable, without status migrainosus (principal); H53.8 Other visual disturbances; E11.9 Type 2 diabetes mellitus without complications; M19.90 Unspecified osteoarthritis, unspecified site; E66.9 Obesity, unspecified; Z68.31 Body mass index [BMI] 31.0-31.9, adult; Z79.899 Other long term (current) drug therapy; Z79.84 Long term (current) use of oral hypoglycemic drugs
CPT/HCPCS: 36415; 70450; 80048; 85025; 85652; 93005; 96361; 96365; 96375; 99284; A9270; J0780; J1200; J1885; J7030; J7050; 99283

== ENCOUNTER 2019-03-11 12:17 | Emergency (ER) | payer MEDICARE, OTHER ==
[2019-03-11] MEDS ORDERED: predniSONE 10 MG Tab PO ONE (14:19)
--- NOTE | 2019-03-11 14:30 | EDM.PDOC ---
ED HPI GENERAL MEDICAL PROBLEM - General Chief Complaint: Eye Problems Stated Complaint: VISION PROBLEMS Time Seen by Provider: 03/11/19 13:24 Source of Information: Reports: Patient History Limitations: Reports: No Limitations, Combative/Threatening - History of Present Illness INITIAL COMMENTS - FREE TEXT/NARRATIVE: This 68 year old female presents to the ED with a chief complaint of head ache in both temporal areas. She was seen by the Opth this morning and pupils were dilated. The eye exam was done by Dr. Thompson for evaluation of lines in her vision right greater than the left and other ocular complaints. She states but for the headache she feels fine. 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 Onset: Gradual (Seen in ED on Thursday and was worked up with CT of the head as well as a ESR) Duration: Intermittent Location: Reports: Head, Face Severity: Moderate Associated Symptoms: Reports: Headaches. Denies: Shortness of Breath, Syncope, Weakness bilateral eyes Pain Score (Numeric/FACES): 6 - Related Data Allergies Allergy/AdvReac Type Severity Reaction Status Date / Time No Known Allergies Allergy Verified 03/11/19 12:35 Home Meds: Home Meds OXcarbazepine [Oxcarbazepine] 150 mg PO BID 01/07/18 [History] Glimepiride [Amaryl] 2 mg PO QPM 05/31/18 [History] metFORMIN [Glucophage XR] 500 mg PO DAILY 03/04/19 [History] predniSONE [Prednisone] 10 mg PO ASDIRECTED 4 Days #10 tab.ds.pk 03/11/19 [Rx] Past Medical History HEENT History: Reports: Cataract Cardiovascular History: Reports: Other (See Below) Other Cardiovascular History: BLE edema Respiratory History: Reports: COPD, SOB Musculoskeletal History: Reports: Osteoarthritis Neurological History: Reports: Seizure Other Neuro History: hx of 1 seizure in 2014- still taking medication Endocrine/Metabolic History: Reports: Diabetes, Type II, Obesity/BMI 30+ - Infectious Disease History Infectious Disease History: Reports: None - Past Surgical History HEENT Surgical History: Reports: Cataract Surgery GI Surgical History: Reports: Colonoscopy Social & Family History - Family History Family Medical History: Noncontributory - Tobacco Use Smoking Status *Q: Never Smoker - Caffeine Use Caffeine Use: Reports: None - Recreational Drug Use Recreational Drug Use: No ED ROS GENERAL - Review of Systems Review Of Systems: See Below Constitutional: Reports: No Symptoms HEENT: Reports: Vision Change (Seen by the Opth this morning and pupils were dilated) Respiratory: Reports: No Symptoms Cardiovascular: Reports: No Symptoms Endocrine: Reports: No Symptoms GI/Abdominal: Reports: No Symptoms : Reports: No Symptoms Musculoskeletal: Reports: No Symptoms Skin: Reports: No Symptoms Neurological: Reports: Headache. Denies: Numbness, Syncope, Tingling, Difficulty Walking, Weakness, Change in Speech, Gait Disturbance Psychiatric: Reports: No Symptoms ED EXAM GENERAL W FULL EYE - Physical Exam Exam: See Below Text/Narrative:: This 68 year old female presents to the ED with a chief complaint of head ache in both temporal areas. She was seen by the Opth this morning and pupils were dilated. The eye exam was done by Dr. Thompson for evaluation of lines in her vision right greater than the left and other ocular complaints. She states but for the headache she feels fine. 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) Exam Limited By: No Limitations General Appearance: Alert, WD/WN, No Apparent Distress Eye Exam: Bilateral Eye: EOMI, Other (both pupils are grossly dilated due to dilation of pupils by Opth this morning.) Visual Acuity (R) 20/: 200 (unable to evaluate due to dilation) Visual Acuity (L) 20/: 150 (unable to evaluate due to dilated pupils) Eyelids: Bilateral: Normal Appearance Conjunctiva & Sclera: Bilateral: Normal Appearance Cornea Exam: Bilateral: Normal Appearance Extraocular Movements: Bilateral: Intact Pupils: Mydriatic Pupillary Size: Bilateral: 8 mm Ears: Normal External Exam, Normal Canal, Hearing Grossly Normal, Normal TMs Nose: Normal Inspection Throat/Mouth: Normal Inspection, Normal Lips, Normal Teeth, Normal Gums, Normal Oropharynx, Normal Voice, No Airway Compromise Head: Atraumatic, Normocephalic, Facial Tenderness (over both temp areas.). No : Sinus Tenderness Neck: Normal Inspection, Supple, Non-Tender, Full Range of Motion. No: Carotid Bruit Respiratory/Chest: No Respiratory Distress, Lungs Clear, Normal Breath Sounds, No Accessory Muscle Use, Chest Non-Tender Cardiovascular: Normal Peripheral Pulses, Regular Rate, Rhythm, No Edema, No Gallop, No JVD, No Murmur, No Rub GI/Abdominal: Normal Bowel Sounds, Soft, Non-Tender, No Organomegaly, No Distention, No Abnormal Bruit, No Mass Back Exam: Normal Inspection, Full Range of Motion, NT Extremities: Normal Inspection, Normal Range of Motion, Non-Tender, Normal Capillary Refill, No Pedal Edema Neurological: Alert, Oriented, CN II-XII Intact, Normal Cognition, Normal Gait, Normal Reflexes, No Motor/Sensory Deficits Psychiatric: Normal Affect, Normal Mood Course - Vital Signs Text/Narrative:: The patient is doing much better after the Prednisone. I reviewed all of her diagnostic test done on Thursday including her elevated ESR of [address] of the brain for any acute pathology. The patient agrees with the discharge plan. Last Recorded V/S: Last Vital Signs Temp 96.0 F 03/11/19 12:31 Pulse 73 03/11/19 12:31 Resp 18 03/11/19 12:31 BP 184/71 H 03/11/19 12:31 Pulse Ox 97 03/11/19 12:31 - Orders/Labs/Meds Meds: Medications Discontinued Medications Generic Name Dose Route Start Last Admin Trade Name Freq PRN Reason Stop Dose Admin Prednisone 50 mg 03/11/19 14:19 Prednisone PO 03/11/19 14:20 ONETIME ONE Departure - Departure Time of Disposition: 14:44 Disposition: Home, Self-Care 01 Condition: Good Clinical Impression: Temporal arteritis syndrome - Discharge Information *PRESCRIPTION DRUG MONITORING PROGRAM REVIEWED*: Yes *COPY OF PRESCRIPTION DRUG MONITORING REPORT IN PATIENT JEB: Yes Referrals: Ming Delacruz MD [Primary Care Provider] - Additional Instructions: Take your Prednisone as directed (decreasing by one tablet each until done on day 4). Warm compresses to the tender areas on the side of your head. Rest for the next two days. Follow up with your PCP in the next two to three days. Return to the ED if your condition gets worse. The following information is given to patients seen in the emergency department who are being discharged to home. This information is to outline your options for follow-up care. We provide all patients seen in our emergency department with a follow-up referral. The need for follow-up, as well as the timing and circumstances, are variable depending upon the specifics of your emergency department visit. If you don't have a primary care physician on staff, we will provide you with a referral. We always advise you to contact your personal physician following an emergency department visit to inform them of the circumstance of the visit and for follow-up with them and/or the need for any referrals to a consulting specialist. The emergency department will also refer you to a specialist when appropriate. This referral assures that you have the opportunity for follow-up care with a specialist. All of these measure are taken in an effort to provide you with optimal care, which includes your follow-up. Under all circumstances we always encourage you to contact your private physician who remains a resource for coordinating your care. When calling for follow-up care, please make the office aware that this follow-up is from your recent emergency room visit. If for any reason you are refused follow-up, please contact the [facility] Emergency Department at and asked to speak to the emergency department charge nurse. Sepsis Event Note - Evaluation Sepsis Screening Result: No Definite Risk - Focused Exam Vital Signs: Vital Signs Temp Pulse Resp BP Pulse Ox 03/11/19 12:31 96.0 F 73 18 184/71 H 97 Date Exam was Performed: 03/11/19 Time Exam was Performed: 14:24
== END 2019-03-11 15:03 | disposition home or self-care (01) ==
LOC: MW.ED 12:17
DX: M31.6 Other giant cell arteritis (principal); J44.9 Chronic obstructive pulmonary disease, unspecified; E11.36 Type 2 diabetes mellitus with diabetic cataract; E66.9 Obesity, unspecified; Z79.84 Long term (current) use of oral hypoglycemic drugs; Z79.52 Long term (current) use of systemic steroids
CPT/HCPCS: 99283; A9270

== ENCOUNTER 2019-04-16 09:24 | Emergency (ER) | payer MEDICARE, OTHER ==
[2019-04-16] MEDS ORDERED: Sodium Chloride 0.9% 10 ML Syringe FLUSH PRN (09:39)
[2019-04-16] MEDS ORDERED: Sodium Chloride 0.9% 2.5 ML Syringe FLUSH PRN (09:39)
[2019-04-16] MEDS ORDERED: Sodium Chloride 0.9% 10 ML SDV IV PRN (09:39)
--- NOTE | 2019-04-16 10:17 | CR ---
Chest: Portable view of the chest was obtained. Comparison: Prior chest x-ray of 01/07/18. Heart size is normal. Upper mediastinum is normal. Lungs show no acute parenchymal change. Mild interstitial fibrosis is noted within the left lung base. Scoliosis is noted within the spine. Mild endplate spurring is also noted within the spine. Impression: 1. Findings as noted above. 2. Nothing acute is appreciated on portable chest x-ray. Diagnostic code #2 This report was dictated in [place] Standard Time
--- NOTE | 2019-04-16 10:22 | CT ---
Stroke code Technique noncontrast head CT scan. Comparison head CT 03/04/2019. Findings : There is eav-frshlew-qwm-attenuation area along the left parasagittal posterior parietal, and occipital lobe. Within this low-attenuation area there are serpiginous areas of increased attenuation which could represent laminar necrosis or tiny petechial hemorrhages. Only minimal mass effect on the adjacent ventricle. There is no midline shift. There is no definite findings for acute intracranial hemorrhage is seen. No abnormal extra-axial air or fluid collections are present. Opacification of the right mastoid maxillary sinus and mucosal thickening of the ethmoid air cells. Mastoid air cells skull and scalp otherwise appears unremarkable. IMPRESSION: 1. Area of probable subacute infarct in the left parasagittal posterior parietal and occipital lobe. Serpiginous areas of increased attenuation within this area of infarction may represent laminar necrosis or tiny petechial hemorrhages. Results called to Dr. Huizar on 04/16/2019 at 10:20 a.m. Please note that all CT scans at this facility use dose modulation, iterative reconstruction, and/or weight-based dosing when appropriate to reduce radiation dose to as low as reasonably achievable. Dictated by Padmini Mendes MD @ Apr 16 2019 10:07AM Signed by Dr. Padmini Mendes @ Apr 16 2019 10:20AM
[2019-04-16 10:26] LABS: BLOOD UREA NITROGEN,BUN 22 mg/dL (7.0-18.0); CARBON DIOXIDE,CO2 25.5 mmol/L (21.0-32.0); CHLORIDE,CL 103 mmol/L (98-107); GLUCOSE RANDOM 261 mg/dL (74-106); POTASSIUM,K 4.5 mmol/L (3.5-5.1); SODIUM,NA 141 mmol/L (136-145)
--- NOTE | 2019-04-16 11:07 | EDM.PDOC ---
ED HPI GENERAL MEDICAL PROBLEM - General Chief Complaint: Neuro Symptoms/Deficits Stated Complaint: STROKE CODE Time Seen by Provider: 04/16/19 09:25 Source of Information: Reports: Patient, Family - History of Present Illness INITIAL COMMENTS - FREE TEXT/NARRATIVE: Patient brought to the hospital by her , who said that she woke up confused. He said she has had some memory deficits since Denies headache, chest pain, abdominal pain. Reports feeling confused. Is having some difficulty answering questions and says, "I do not know" to many questions. Not able to tell me if she is numb or weak. not at bedside ; will get more info when he arrives. After arrival of patient's , he said that patient has had some intermittent confusion for about a month. He said a month ago she woke up with visual blurring. She had lost peripheral vision out of her right eye. She had an MRI. She was told on yesterday that she had experienced "a stroke in her right eye". She woke up with confusion this morning. Her right face was droopy when she woke up according to the . He did not notice any focal weakness of her extremities. However, she had trouble "with coordination" per . Unsteady gait. She did not complain of chest pain, headache, dizziness this morning. - Related Data Allergies Allergy/AdvReac Type Severity Reaction Status Date / Time No Known Allergies Allergy Verified 04/16/19 09:45 Home Meds: Home Meds OXcarbazepine [Oxcarbazepine] 150 mg PO BID 01/07/18 [History] Glimepiride [Amaryl] 2 mg PO QPM 05/31/18 [History] metFORMIN [Glucophage XR] 500 mg PO DAILY 03/04/19 [History] predniSONE [Prednisone] 10 mg PO ASDIRECTED 4 Days #10 tab.ds.pk 03/11/19 [Rx] Past Medical History HEENT History: Reports: Cataract Cardiovascular History: Reports: Other (See Below) Other Cardiovascular History: BLE edema Respiratory History: Reports: COPD, SOB Musculoskeletal History: Reports: Osteoarthritis Neurological History: Reports: Seizure Other Neuro History: hx of 1 seizure in 2014- still taking medication Endocrine/Metabolic History: Reports: Diabetes, Type II, Obesity/BMI 30+ - Infectious Disease History Infectious Disease History: Reports: Chicken Pox, Measles, Mumps - Past Surgical History HEENT Surgical History: Reports: Cataract Surgery GI Surgical History: Reports: Colonoscopy Social & Family History - Family History Family Medical History: Noncontributory - Tobacco Use Smoking Status *Q: Never Smoker Second Hand Smoke Exposure: No - Caffeine Use Caffeine Use: Reports: None - Recreational Drug Use Recreational Drug Use: No ED ROS GENERAL - Review of Systems Review Of Systems: See Below Free Text/Narrative/Comment: ROS positive for right facial drooping, confusion. Review of systems negative for focal weakness, chest pain, headache, dizziness, numbness, loss of sensation , visual blurring palpitations. ED EXAM, NEURO - Physical Exam Exam: See Below Text/Narrative:: General: Responsive but somewhat sleepy, nontoxic, seems confused and tearful HEENT: Atraumatic, normocephalic, pupils reactive, negative for conjunctival pallor or scleral icterus, mucous membranes moist, throat clear, handling oral secretions well. Neck: supple, nontender, trachea midline. Lungs: Clear to auscultation, breath sounds equal bilaterally, chest nontender. Heart: S1S2, regular, negative for clicks, rubs, or JVD. Abdomen: Soft, nondistended, nontender. Negative for masses or hepatosplenomegaly. Negative for costovertebral tenderness. Skin: warm, dry, good turgor. Musculoskeletal: soft compartments. Good tone. No peripheral edema. Extremities: Atraumatic, negative for cords or calf pain. No bony tenderness or deformity. Neuro: Awake, alert, oriented to person but not month/yr or place. Cranial nerves II through XII unremarkable. No facial droop currently. Too confused to do finger to nose testing. 2+ DTRs. Initial NIH stroke scale score is 6. Patient is not able to tell us the correct month or her age. Patient was rather stuporous upon arrival. With regards to naming items, she could not name the cactus or the harrell; she called the harrell knife and could not give the cactus any name at all. There was some dysarthria as well. Course - Vital Signs Text/Narrative:: Ek bpm normal sinus rhythm left axis deviation normal IA, QRS, QTc intervals; no acute ST changes CBC: Unremarkable Coags: Unremarkable CMP: Glycemia (glucose 261), otherwise unremarkable Troponin: Negative EtOH: Negative TSH: Unremarkable Sed rate and CRP: Pending 9:53am Pt is more alert. Still has some memory deficits. says pts rt sided facial droop from this am has resolved. 10:20am CT d/w Dr. Mendes, radiologist. Advises that head CT shows subacute infarct in left parasaggital occipital and posterior parietal lobe. Also says that I this area, there is either laminar necrosis or tiny, tiny petechial hemorrhage hard to tell. 10:25am Case d/w Dr. Ovidio Mora. Pt awoke like this. This means we do not know the time that sxs actually began. Pt not a tPA candidate. Advises to send sed rate, CRP. Pt accepted by DR. Ovidio Mora. 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 Also d/w Dr. Winslow, ED attending; also accepts pt for transfer. 10:45am Pt more alert. Consents to transfer. No new focal deficits. Still confused, but less so than before. Not a tPA candidate; time of onset of deficits today unknown b/c pt awoke with confusion. Transfer arrangements in progress. Last Recorded V/S: Last Vital Signs Temp 96.6 F L 04/16/19 09:46 Pulse 69 04/16/19 10:35 Resp 18 04/16/19 10:35 BP 160/76 H 04/16/19 10:35 Pulse Ox 99 04/16/19 10:35 - Orders/Labs/Meds Orders: Active Orders 24 hr Category Date Time Status Assess Neurological Status [RC] ASDIRECTED Care 04/16/19 09:39 Active Bedrest [RC] ASDIRECTED Care 04/16/19 09:39 Active Cardiac Monitoring [RC] . DIRECTED Care 04/16/19 09:39 Active EKG Documentation Completion [RC] STAT Care 04/16/19 09:39 Active Height and Weight [RC] UPON Care 04/16/19 09:39 Active Initiate Acute Stroke Protocol [RC] STAT Care 04/16/19 09:39 Active NIH Stroke Scale [RC] ASDIRECTED Care 04/16/19 09:39 Active Nursing Bedside Swallow Screen [RC] ASDIRECTED Care 04/16/19 09:39 Active Oxygen Therapy [RC] ASDIRECTED Care 04/16/19 09:39 Active Stroke Education, General [RC] Click to Edit Care 04/16/19 09:39 Active Vital Signs [RC] Q15M Care 04/16/19 09:39 Active DRUG SCREEN, URINE [URCHEM] Stat Lab 04/16/19 09:40 Ordered UA RFX AJITH AND CULT IF INDIC [URIN] Stat Lab 04/16/19 09:39 Ordered Sodium Chloride 0.9% [Normal Saline] Med 04/16/19 09:39 Active 10 ml IV ASDIRECTED PRN Sodium Chloride 0.9% [Saline Flush] Med 04/16/19 09:39 Active 10 ml FLUSH ASDIRECTED PRN Sodium Chloride 0.9% [Saline Flush] Med 04/16/19 09:39 Active 2.5 ml FLUSH ASDIRECTED PRN Peripheral IV Insertion Adult [OM.PC] Stat Oth 04/16/19 09:39 Ordered Peripheral IV Insertion Adult [OM.PC] Stat Ot 04/16/19 09:39 Ordered Resuscitation Status Stat Resus Stat 04/16/19 09:39 Ordered Medication Orders Sodium Chloride (Saline Flush) 10 ml FLUSH ASDIRECTED PRN PRN Reason: Keep Vein Open Sodium Chloride (Saline Flush) 2.5 ml FLUSH ASDIRECTED PRN PRN Reason: Keep Vein Open Sodium Chloride (Normal Saline) 10 ml IV ASDIRECTED PRN PRN Reason: IV Use Labs: Laboratory Tests 04/16/19 04/16/19 04/16/19 Range/Units 09:40 09:40 09:40 WBC 6.24 (4.0-11.0) K/uL RBC 4.04 L (4.30-5.90) M/uL Hgb 12.3 (12.0-16.0) g/dL Hct 37.2 (36.0-46.0) % MCV 92.1 (80.0-98.0) fL MCH 30.4 (27.0-32.0) pg MCHC 33.1 (31.0-37.0) g/dL RDW Std Deviation 47.0 (28.0-62.0) fl RDW Coeff of Laney 14 (11.0-15.0) % Plt Count 237 (150-400) K/uL MPV 8.70 (7.40-12.00) fL Neut % (Auto) 68.3 (48.0-80.0) % Lymph % (Auto) 19.2 (16.0-40.0) % [place] % (Auto) 9.8 (0.0-15.0) % Eos % (Auto) 2.2 (0.0-7.0) % Baso % (Auto) 0.5 (0.0-1.5) % Neut # (Auto) 4.3 (1.4-5.7) K/uL Lymph # (Auto) 1.2 (0.6-2.4) K/uL [place] # (Auto) 0.6 (0.0-0.8) K/uL Eos # (Auto) 0.1 (0.0-0.7) K/uL Baso # (Auto) 0.0 (0.0-0.1) K/uL Nucleated RBC % 0.0 /100WBC Nucleated RBCs # 0 K/uL ESR (0-29) mm/hr INR 0.93 APTT 26.8 (18.6-31.3) SEC Sodium 141 (136-145) mmol/L Potassium 4.5 (3.5-5.1) mmol/L Chloride 103 (98-107) mmol/L Carbon Dioxide 25.5 (21.0-32.0) mmol/L BUN 22 H (7.0-18.0) mg/dL Creatinine 1.2 H (0.6-1.0) mg/dL Est Cr Clr Drug Dosing 42.00 mL/min Estimated GFR (MDRD) 44.7 ml/min Glucose 261 H (74-106) mg/dL Calcium 8.7 (8.5-10.1) mg/dL Total Bilirubin 0.3 (0.2-1.0) mg/dL AST 20 (15-37) IU/L ALT 31 (14-63) IU/L Alkaline Phosphatase 102 (46-116) U/L Troponin I < 0.050 (0.000-0.056) ng/mL C-Reactive Protein (0.00-0.90) mg/dL Total Protein 6.9 (6.4-8.2) g/dL Albumin 3.4 (3.4-5.0) g/dL Globulin 3.5 (2.6-4.0) g/dL Albumin/Globulin Ratio 1.0 (0.9-1.6) TSH 3rd Generation 2.06 (0.36-3.74) uIU/mL Ethyl Alcohol <3 mg/dL 04/16/19 04/16/19 Range/Units 09:40 09:40 WBC (4.0-11.0) K/uL RBC (4.30-5.90) M/uL Hgb (12.0-16.0) g/dL Hct (36.0-46.0) % MCV (80.0-98.0) fL MCH (27.0-32.0) pg MCHC (31.0-37.0) g/dL RDW Std Deviation (28.0-62.0) fl RDW Coeff of Laney (11.0-15.0) % Plt Count (150-400) K/uL MPV (7.40-12.00) fL Neut % (Auto) (48.0-80.0) % Lymph % (Auto) (16.0-40.0) % [place] % (Auto) (0.0-15.0) % Eos % (Auto) (0.0-7.0) % Baso % (Auto) (0.0-1.5) % Neut # (Auto) (1.4-5.7) K/uL Lymph # (Auto) (0.6-2.4) K/uL [place] # (Auto) (0.0-0.8) K/uL Eos # (Auto) (0.0-0.7) K/uL Baso # (Auto) (0.0-0.1) K/uL Nucleated RBC % /100WBC Nucleated RBCs # K/uL ESR 38 H (0-29) mm/hr INR APTT (18.6-31.3) SEC Sodium (136-145) mmol/L Potassium (3.5-5.1) mmol/L Chloride (98-107) mmol/L Carbon Dioxide (21.0-32.0) mmol/L BUN (7.0-18.0) mg/dL Creatinine (0.6-1.0) mg/dL Est Cr Clr Drug Dosing mL/min Estimated GFR (MDRD) ml/min Glucose (74-106) mg/dL Calcium (8.5-10.1) mg/dL Total Bilirubin (0.2-1.0) mg/dL AST (15-37) IU/L ALT (14-63) IU/L Alkaline Phosphatase (46-116) U/L Troponin I (0.000-0.056) ng/mL C-Reactive Protein 0.80 (0.00-0.90) mg/dL Total Protein (6.4-8.2) g/dL Albumin (3.4-5.0) g/dL Globulin (2.6-4.0) g/dL Albumin/Globulin Ratio (0.9-1.6) TSH 3rd Generation (0.36-3.74) uIU/mL Ethyl Alcohol mg/dL Meds: Medications Generic Name Dose Route Start Last Admin Trade Name Freq PRN Reason Stop Dose Admin Sodium Chloride 10 ml 04/16/19 09:39 Saline Flush FLUSH ASDIRECTED PRN Keep Vein Open Sodium Chloride 2.5 ml 04/16/19 09:39 Saline Flush FLUSH ASDIRECTED PRN Keep Vein Open Sodium Chloride 10 ml 04/16/19 09:39 Normal Saline IV ASDIRECTED PRN IV Use Departure - Departure Time of Disposition: 10:45 Disposition: DC/Tfer to Acute Hospital 02 Clinical Impression: Cerebrovascular accident (CVA) Qualifiers: Precerebral and cerebral artery: unspecified cerebral artery - Discharge Information Referrals: Ming Delacruz MD [Primary Care Provider] - Forms: ED Department Discharge Sepsis Event Note - Evaluation Sepsis Screening Result: No Definite Risk - Focused Exam Vital Signs: Vital Signs Temp Pulse Resp BP Pulse Ox 04/16/19 10:35 69 18 160/76 H 99 04/16/19 10:00 68 18 158/55 H 99 04/16/19 09:46 96.6 F L 72 16 158/55 H 96 Date Exam was Performed: 04/16/19 Time Exam was Performed: 11:10 - My Orders Last 24 Hours: My Active Orders 04/16/19 09:39 Assess Neurological Status [RC] ASDIRECTED Bedrest [RC] ASDIRECTED Cardiac Monitoring [RC] . DIRECTED EKG Documentation Completion [RC] STAT Height and Weight [RC] UPON Initiate Acute Stroke Protocol [RC] STAT NIH Stroke Scale [RC] ASDIRECTED Nursing Bedside Swallow Screen [RC] ASDIRECTED Oxygen Therapy [RC] ASDIRECTED Stroke Education, General [RC] Click to Edit Vital Signs [RC] Q15M UA RFX AIJTH AND CULT IF INDIC [URIN] Stat Sodium Chloride 0.9% [Normal Saline] 10 ml IV ASDIRECTED PRN Sodium Chloride 0.9% [Saline Flush] 10 ml FLUSH ASDIRECTED PRN Sodium Chloride 0.9% [Saline Flush] 2.5 ml FLUSH ASDIRECTED PRN Peripheral IV Insertion Adult [OM.PC] Stat Peripheral IV Insertion Adult [OM.PC] Stat Resuscitation Status Stat 04/16/19 09:40 DRUG SCREEN, URINE [URCHEM] Stat - Assessment/Plan Last 24 Hours: My Active Orders 04/16/19 09:39 Assess Neurological Status [RC] ASDIRECTED Bedrest [RC] ASDIRECTED Cardiac Monitoring [RC] . DIRECTED EKG Documentation Completion [RC] STAT Height and Weight [RC] UPON Initiate Acute Stroke Protocol [RC] STAT NIH Stroke Scale [RC] ASDIRECTED Nursing Bedside Swallow Screen [RC] ASDIRECTED Oxygen Therapy [RC] ASDIRECTED Stroke Education, General [RC] Click to Edit Vital Signs [RC] Q15M UA RFX AJITH AND CULT IF INDIC [URIN] Stat Sodium Chloride 0.9% [Normal Saline] 10 ml IV ASDIRECTED PRN Sodium Chloride 0.9% [Saline Flush] 10 ml FLUSH ASDIRECTED PRN Sodium Chloride 0.9% [Saline Flush] 2.5 ml FLUSH ASDIRECTED PRN Peripheral IV Insertion Adult [OM.PC] Stat Peripheral IV Insertion Adult [OM.PC] Stat Resuscitation Status Stat 04/16/19 09:40 DRUG SCREEN, URINE [URCHEM] Stat
== END 2019-04-16 11:00 ==
LOC: MW.ED 09:24
DX: I63.9 Cerebral infarction, unspecified (principal); J44.9 Chronic obstructive pulmonary disease, unspecified; E11.9 Type 2 diabetes mellitus without complications; R56.9 Unspecified convulsions; E66.9 Obesity, unspecified; Z68.31 Body mass index [BMI] 31.0-31.9, adult; Z79.84 Long term (current) use of oral hypoglycemic drugs; Z79.899 Other long term (current) drug therapy
CPT/HCPCS: 36415; 70450; 70450-26; 71045; 71045-26; 80053; 80305-QW; 80307; 81001; 84443; 84484; 85025; 85610; 85652; 85730; 86140; 87086; 87088; 87186; 93005; 99285; 99285-25

== ENCOUNTER 2019-06-28 08:32 | Emergency (ER) | payer MEDICARE, OTHER ==
--- NOTE | 2019-06-28 09:19 | EDM.PDOC ---
ED HPI GENERAL MEDICAL PROBLEM - General Chief Complaint: Lower Extremity Injury/Pain Stated Complaint: INJURY LT KNEE Time Seen by Provider: 06/28/19 09:15 Source of Information: Reports: Patient History Limitations: Reports: No Limitations - History of Present Illness INITIAL COMMENTS - FREE TEXT/NARRATIVE: This 68-year-old female presents to the emergency room stating she fell 2 days ago and injured her left knee. Patient can walk but has pain on ambulating and now has a large contusion to her left knee. Duration: Day(s): (2), Getting Worse Location: Reports: Lower Extremity, Left Quality: Reports: Throbbing Severity: Moderate Improves with: Reports: None Worsens with: Reports: Movement Context: Reports: Trauma left knee Pain Score (Numeric/FACES): 10 - Related Data Allergies Allergy/AdvReac Type Severity Reaction Status Date / Time No Known Allergies Allergy Verified 06/28/19 08:51 Home Meds: Home Meds OXcarbazepine [Oxcarbazepine] 150 mg PO BID 01/07/18 [History] Glimepiride [Amaryl] 2 mg PO QPM 05/31/18 [History] Clopidogrel [Plavix] 75 mg PO DAILY 06/28/19 [History] Docusate Sodium [Colace] 100 mg PO DAILY 06/28/19 [History] Glimepiride [Amaryl] 4 mg PO ACBREAKFAST 06/28/19 [History] Ipratropium/Albuterol Sulfate [Iprat-Albut 0.5-3(2.5) mg/3 ml] 3 ml IH QID 06/27 [History] Rosuvastatin Calcium 20 mg PO DAILY 06/28/19 [History] metFORMIN [Glucophage] 250 mg PO BIDMEALS 06/28/19 [History] Past Medical History HEENT History: Reports: Cataract Cardiovascular History: Reports: Other (See Below) Other Cardiovascular History: BLE edema Respiratory History: Reports: COPD, SOB Musculoskeletal History: Reports: Osteoarthritis Neurological History: Reports: Seizure Other Neuro History: hx of 1 seizure in 2014- still taking medication Endocrine/Metabolic History: Reports: Diabetes, Type II, Obesity/BMI 30+ - Infectious Disease History Infectious Disease History: Reports: Chicken Pox, Measles - Past Surgical History HEENT Surgical History: Reports: Cataract Surgery Cardiovascular Surgical History: Reports: Carotid Stents GI Surgical History: Reports: Colonoscopy Social & Family History - Family History Family Medical History: Noncontributory - Tobacco Use Smoking Status *Q: Never Smoker - Caffeine Use Caffeine Use: Reports: None Review of Systems - Review of Systems Review Of Systems: See Below Constitutional: Reports: No Symptoms Eyes: Reports: No Symptoms Ears: Reports: No Symptoms Nose: Reports: No Symptoms Mouth/Throat: Reports: No Symptoms Respiratory: Reports: No Symptoms Cardiovascular: Reports: No Symptoms GI/Abdominal: Reports: No Symptoms Genitourinary: Reports: No Symptoms Musculoskeletal: Reports: Leg Pain (Knee pain left) Skin: Reports: No Symptoms Neurological: Reports: No Symptoms Psychiatric: Reports: No Symptoms ED EXAM, GENERAL - Physical Exam Exam: See Below Exam Limited By: No Limitations General Appearance: Alert, WD/WN, No Apparent Distress Eye Exam: Bilateral Eye: Normal Fundi, Normal Inspection Ears: Normal External Exam, Normal Canal Ear Exam: Bilateral Ear: Auricle Normal, Canal Normal Nose: Normal Inspection, Normal Mucosa Throat/Mouth: Normal Inspection, Normal Lips Head: Atraumatic, Normocephalic Neck: Normal Inspection, Supple, Non-Tender Respiratory/Chest: No Respiratory Distress, Lungs Clear, Normal Breath Sounds, No Accessory Muscle Use, Chest Non-Tender Cardiovascular: Normal Peripheral Pulses, Regular Rate, Rhythm, No JVD, No Murmur, No Rub GI/Abdominal: Normal Bowel Sounds, Soft, Non-Tender, No Organomegaly, No Distention, No Abnormal Bruit, No Mass (Female) Exam: Deferred Rectal (Female) Exam: Deferred Back Exam: Normal Inspection, Full Range of Motion Extremities: Limited Range of Motion. No: Normal Inspection (Patient has contusion on the left knee approximately 8 cm with bruising), Normal Range of Motion Neurological: Alert, Oriented, CN II-XII Intact Psychiatric: Normal Affect, Normal Mood Skin Exam: Ecchymosis Lymphatic: No Adenopathy Course - Vital Signs Text/Narrative:: His x-ray is negative for any acute fracture. Will be given crutches and an Fabrizio bandage for support. Patient to follow-up with primary care physician Last Recorded V/S: Last Vital Signs Temp 96.0 F L 06/28/19 08:48 Pulse 76 06/28/19 09:53 Resp 16 06/28/19 09:53 BP 156/51 H 06/28/19 08:48 Pulse Ox 95 06/28/19 09:53 Departure - Departure Time of Disposition: 09:56 Disposition: Home, Self-Care 01 Clinical Impression: Contusion of knee - Discharge Information Instructions: Knee Sprain, Adult, [id number], Crutch Use, Adult, [id number] Referrals: Ming Delacruz MD [Primary Care Provider] - Forms: ED Department Discharge Sepsis Event Note - Evaluation Sepsis Screening Result: No Definite Risk - Focused Exam Vital Signs: Vital Signs Temp Pulse Resp BP Pulse Ox 06/28/19 09:53 76 16 95 06/28/19 08:48 96.0 F L 94 16 156/51 H 94 L Date Exam was Performed: 06/28/19 Time Exam was Performed: 09:55
--- NOTE | 2019-06-28 09:41 | CR ---
Left knee: 4 views of the left knee were obtained. Comparison: No prior knee exam. Well-corticated bony density is noted off the anterior tibial tuberosity which appears chronic. No joint effusion is seen. Mild medial joint space narrowing is noted. Lateral joint space is preserved. No acute fracture or other bony abnormality is appreciated. Impression: 1. Mild degenerative change. 2. No acute bony abnormality is identified. Diagnostic code #2 This report was dictated in MDT
== END 2019-06-28 10:16 | disposition home or self-care (01) ==
LOC: MW.ED 08:32
DX: S80.02XA Contusion of left knee, initial encounter (principal); J44.9 Chronic obstructive pulmonary disease, unspecified; M19.90 Unspecified osteoarthritis, unspecified site; E11.9 Type 2 diabetes mellitus without complications; G40.909 Epilepsy, unspecified, not intractable, without status epilepticus; E66.9 Obesity, unspecified; Z68.31 Body mass index [BMI] 31.0-31.9, adult; Z79.899 Other long term (current) drug therapy; Z79.84 Long term (current) use of oral hypoglycemic drugs; Z79.02 Long term (current) use of antithrombotics/antiplatelets; W19.XXXA Unspecified fall, initial encounter
CPT/HCPCS: 73564-26-LT; 73564-LT; 99282; 99283

== ENCOUNTER 2019-08-30 08:07 | Emergency (ER) | payer MEDICARE, OTHER ==
--- NOTE | 2019-08-30 08:58 | EDM.PDOC ---
ED HPI GENERAL MEDICAL PROBLEM - General Chief Complaint: Upper Extremity Injury/Pain Stated Complaint: PAIN IN RT ARM Time Seen by Provider: 08/30/19 08:09 Source of Information: Reports: Patient, Old Records History Limitations: Reports: No Limitations - History of Present Illness INITIAL COMMENTS - FREE TEXT/NARRATIVE: 60-year-old female past medical history of CVA, temporal arteritis syndrome, hyperlipidemia, diabetes mellitus presenting with right arm pain. Patient reports a one-week history of pain to the medial aspect of the right antecubital fossa. Worse with movement, better with rest. No complaints of pain to the right shoulder or the right wrist. Does not report any blunt trauma. Does not remember any exertional motions that may have exacerbated this. Intermittently taking acetaminophen at home without relief. No other complaints. right shoulder Pain Score (Numeric/FACES): 7 - Related Data Allergies Allergy/AdvReac Type Severity Reaction Status Date / Time Pain Medication Allergy Rash Uncoded 08/30/19 08:42 Home Meds: Home Meds OXcarbazepine [Oxcarbazepine] 150 mg PO BID 01/07/18 [History] Glimepiride [Amaryl] 2 mg PO QPM 05/31/18 [History] Clopidogrel [Plavix] 75 mg PO DAILY 06/28/19 [History] Docusate Sodium [Colace] 100 mg PO DAILY 06/28/19 [History] Glimepiride [Amaryl] 4 mg PO ACBREAKFAST 06/28/19 [History] Ipratropium/Albuterol Sulfate [Iprat-Albut 0.5-3(2.5) mg/3 ml] 3 ml IH QID 06/28/19 [History] Rosuvastatin Calcium 20 mg PO DAILY 06/28/19 [History] metFORMIN [Glucophage] 250 mg PO BIDMEALS 06/28/19 [History] Past Medical History HEENT History: Reports: Cataract Cardiovascular History: Reports: Other (See Below) Other Cardiovascular History: BLE edema Respiratory History: Reports: COPD, SOB Gastrointestinal History: Reports: None Genitourinary History: Reports: None 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 Musculoskeletal History: Reports: Osteoarthritis Neurological History: Reports: CVA, Seizure Other Neuro History: hx of 1 seizure in 2014- still taking medication Psychiatric History: Reports: None Endocrine/Metabolic History: Reports: Diabetes, Type II, Obesity/BMI 30+ Hematologic History: Reports: None Immunologic History: Reports: None Oncologic (Cancer) History: Reports: None Dermatologic History: Reports: None - Infectious Disease History Infectious Disease History: Reports: None - Past Surgical History Head Surgeries/Procedures: Reports: None HEENT Surgical History: Reports: Cataract Surgery Cardiovascular Surgical History: Reports: Carotid Stents Respiratory Surgical History: Reports: None GI Surgical History: Reports: Colonoscopy Female Surgical History: Reports: None Endocrine Surgical History: Reports: None Neurological Surgical History: Reports: None Musculoskeletal Surgical History: Reports: None Oncologic Surgical History: Reports: None Dermatological Surgical History: Reports: None Social & Family History - Family History Family Medical History: Noncontributory - Tobacco Use Smoking Status *Q: Former Smoker Used Tobacco, but Quit: Yes Month/Year Tobacco Last Used: 2005 Second Hand Smoke Exposure: No - Caffeine Use Caffeine Use: Reports: None - Recreational Drug Use Recreational Drug Use: No Review of Systems - Review of Systems Review Of Systems: See Below Respiratory: Denies: Shortness of Breath Cardiovascular: Denies: Chest Pain Musculoskeletal: Reports: Arm Pain. Denies: Shoulder Pain, Hand Pain Neurological: Denies: Numbness, Paresthesia, Weakness ED EXAM, GENERAL - Physical Exam Exam: See Below Free Text/Narrative:: Vital signs reviewed. Nursing notes reviewed. Constitutional: Awake, alert, non-distressed. Head: Normocephalic, atraumatic. Eyes: EOMI, conjunctiva normal, no discharge, no scleral icterus. Ears, Nose, Throat: External ears and nose normal, moist oral mucosa. Cardiovascular: 2+ radial pulse, capillary refill less than 2 seconds. Pulmonary: normal work of breathing, no accessory muscle use. Abdomen/GI: Soft, nontender, nondistended, no guarding or rigidity, no masses. Musculoskeletal: No deformities. Mild tenderness to palpation to the medial aspect of the right antecubital fossa. Normal active and passive range of motion of the right shoulder, right elbow, right wrist. Integumentary: Appropriate color for ethnicity, warm, dry, no pallor or jaundice, no rash. Neurologic: Alert, answering questions appropriately, normal speech, no facial droop, moving all extremities well. 5/5 strength bilateral upper extremities. Able to make thumbs up, oppose thumbs and little finger, and abduct all fingers of both hands. Psychiatric: Appropriate mood and affect, normal thought process. Course - Vital Signs Text/Narrative:: Patient hemodynamically stable, afebrile, well-appearing, looks nontoxic. Differential diagnosis includes but is not limited to: Tendinitis, sprain, strain, fracture, dislocation, DVT, etc. Mild tenderness to palpation over the right antecubital fossa, concerning for tendinitis. Normal joint range of motion, no swelling or deformity. No indication for x-rays at this time. No edema noted that would suggest a DVT. Treated with acetaminophen and a lidocaine patch. Stable discharge home with symptomatic treatment: Acetaminophen, lidocaine patches, heating pad. Close primary care follow-up. Plan: Patient is stable to discharge home with outpatient primary care follow- up. Strict emergency department return precautions were provided, patient indicated understanding. All questions were answered prior to departure. Discharged in good condition. Last Recorded V/S: Last Vital Signs Temp 35.7 C L 08/30/19 08:42 Pulse 74 08/30/19 08:42 Resp 17 08/30/19 08:42 BP 113/46 L 08/30/19 08:42 Pulse Ox 95 08/30/19 08:42 - Orders/Labs/Meds Meds: Medications Discontinued Medications Generic Name Dose Route Start Last Admin Trade Name Freq PRN Reason Stop Dose Admin Acetaminophen 1,000 mg 08/30/19 09:06 08/30/19 09:48 Tylenol Extra Strength PO 08/30/19 09:07 1,000 mg ONETIME ONE Administration Lidocaine 700 mg 08/30/19 09:06 08/30/19 09:47 Lidoderm 5% TOP 08/30/19 09:07 700 mg ONETIME ONE Administration Departure - Departure Time of Disposition: 09:44 Disposition: Home, Self-Care 01 Condition: Good Clinical Impression: Tendinitis of right elbow - Discharge Information *PRESCRIPTION DRUG MONITORING PROGRAM REVIEWED*: Not Applicable *COPY OF PRESCRIPTION DRUG MONITORING REPORT IN PATIENT JEB: Not Applicable Instructions: Tendinitis, [id number] Referrals: Ming Delacruz MD [Primary Care Provider] - 1 Week (As needed) Forms: ED Department Discharge Additional Instructions: Thank you for choosing the [facility] emergency department in [place] for your medical needs today. It was a pleasure caring for you. You were seen in the emergency department for tendinitis, or irritation of the area where the muscle attaches to one of your bones. This is not dangerous in and of itself. I recommend treatment with [id number] extra strength Tylenol, heating pad, and [id number]-[id number] lidocaine patches. I would like for you to follow-up with your primary doctor in the next 1 to 2 weeks if your symptoms do not improve. Please return the emergency department immediately if your symptoms worsen or if you feel worse. The following information is given to patients seen in the emergency department who are being discharged. This information is to outline your options for follow-up care. We provide all patients seen in our emergency department with a follow-up referral. The need for follow-up, as well as the timing and circumstances, are variable depending upon the specifics of your emergency department visit. If you don't have a primary care physician on staff, we will provide you with a referral. We always advise you to contact your personal physician following an emergency department visit to inform them of the circumstance of the visit and for follow-up with them and/or the need for any referrals to a consulting specialist. The emergency department will also refer you to a specialist when appropriate. This referral assures that you have the opportunity for follow-up care with a specialist. All of these measure are taken in an effort to provide you with optimal care, which includes your follow-up. Under all circumstances we always encourage you to contact your private physician who remains a resource for coordinating your care. When calling for follow-up care, please make the office aware that this follow-up is from your recent emergency room visit. If for any reason you are refused follow-up, please contact the [facility] Emergency Department at and asked to speak to the emergency department charge nurse. If you do not have a primary care physician that is caring for you, you can contact these clinics below to set up an appointment to establish care: [facility] - Primary Care [address] [place] [address] [facility] [address] [place] [address] Sepsis Event Note (ED) - Evaluation Sepsis Screening Result: No Definite Risk - Focused Exam Vital Signs: Vital Signs Temp Pulse Resp BP Pulse Ox 08/30/19 08:42 35.7 C L 74 17 113/46 L 95
[2019-08-30] MEDS ORDERED: Lidocaine 5% 700 MG Patch TOP ONE (09:06)
[2019-08-30] MEDS ORDERED: Acetaminophen 500 MG Tab PO ONE (09:06)
== END 2019-08-30 10:00 | disposition home or self-care (01) ==
LOC: MW.ED 08:07
DX: M77.9 Enthesopathy, unspecified (principal); J44.9 Chronic obstructive pulmonary disease, unspecified; M19.90 Unspecified osteoarthritis, unspecified site; E11.9 Type 2 diabetes mellitus without complications; E66.9 Obesity, unspecified; Z68.30 Body mass index [BMI] 30.0-30.9, adult; Z88.6 Allergy status to analgesic agent; Z79.02 Long term (current) use of antithrombotics/antiplatelets; Z79.84 Long term (current) use of oral hypoglycemic drugs; Z79.899 Other long term (current) drug therapy; Z86.73 Personal history of transient ischemic attack (TIA), and cerebral infarction without residual deficits; Z87.891 Personal history of nicotine dependence
CPT/HCPCS: 99283; A9270

== ENCOUNTER 2020-11-23 09:11 | Emergency (ER) | payer MEDICARE, OTHER ==
--- NOTE | 2020-11-23 10:05 | EDM.PDOC ---
ED HPI GENERAL MEDICAL PROBLEM - General Chief Complaint: Back Pain or Injury Stated Complaint: PAIN ABOVE LEFT BUTTOCKS AND BACK PAIN Time Seen by Provider: 11/23/20 09:29 - History of Present Illness INITIAL COMMENTS - FREE TEXT/NARRATIVE: History of present illness: [] The patient has a few days of low back pain worsening last night. It hurts to move. She can hardly walk because of the pain. Its in the upper part of the posterior left buttocks. It radiates somewhat down the left thigh. Is not associated with any neurologic deficit. She has not lost control of bowel or bladder. She denies shortness of breath fever chills nausea vomiting change in bowel or bladder habits. The patient never had this pain before. Review of systems: As per history of present illness and below otherwise all systems reviewed and negative. Past medical history: As per history of present illness and as reviewed below otherwise noncontributory. Surgical history: As per history of present illness and as reviewed below otherwise noncontributory. Social history: No reported history of drug or alcohol abuse. Family history: As per history of present illness and as reviewed below otherwise noncontributory. Physical exam: Constitutional - well developed, well-nourished and in no acute distress HEENT - normocephalic, no evidence of trauma - external nose and mouth normal - no mass in neck and no JVD - mucosae moist EYES - full EOM, PERRL, no icterus - no evidence of inflammation, injection, or drainage Respiratory - no respiratory distress, equal bilateral expansion, lungs clear to auscultation and no abnormal lung sounds Cardiovascular - Regular Rhythm with S1 and S2 appreciated and no murmur, gallop or rub. GI - abdomen soft without distension or organomegaly - normal bowel sounds - no guard or rebound Musculoskeletal tenderness in the posterior iliac crest and between that and the lumbar spine in the same area. There is no rash. Straight leg raise negative for radicular pain. No gross deformity of long bones or joints - no tenderness, swelling or edema Neurologic - Alert and oriented times four - CN II-XII grossly intact - motor sensory and coordination symmetrically normal Psychiatric - appropriate mood and affect with normal thought content Hematologic - No petechiae or purpura - mucosa appropriate color and sclera not pale - normal nail bed color and refill Integument - no rash or evidence of trauma - normal turgor Diagnostics: [] Therapeutics: [] Impression: [] Plan: [] Definitive disposition and diagnosis as appropriate pending reevaluation and review of above. lower back Pain Score (Numeric/FACES): 10 - Related Data Allergies Allergy/AdvReac Type Severity Reaction Status Date / Time prednisone Allergy Hallucinati Verified 11/23/20 09:34 ons Home Meds: Home Meds OXcarbazepine [Oxcarbazepine] 150 mg PO BID 01/07/18 [History] Glimepiride [Amaryl] 2 mg PO QPM 05/31/18 [History] Clopidogrel [Plavix] 75 mg PO DAILY 06/28/19 [History] Docusate Sodium [Colace] 100 mg PO DAILY 06/28/19 [History] Glimepiride [Amaryl] 4 mg PO ACBREAKFAST 06/28/19 [History] Ipratropium/Albuterol Sulfate [Iprat-Albut 0.5-3(2.5) mg/3 ml] 3 ml IH QID 06/28/19 [History] Rosuvastatin Calcium 20 mg PO DAILY 06/28/19 [History] metFORMIN [Glucophage] 250 mg PO BIDMEALS 06/28/19 [History] Cyclobenzaprine [Flexeril] 5 mg PO TID PRN #15 tab 11/23/20 [Rx] methylPREDNISolone [Medrol Dose Pack] 4 mg PO DAILY #21 tab 11/23/20 [Rx] Past Medical History HEENT History: Reports: Cataract Cardiovascular History: Reports: Other (See Below) Other Cardiovascular History: BLE edema Respiratory History: Reports: COPD, SOB Gastrointestinal History: Reports: None Genitourinary History: Reports: None 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 Musculoskeletal History: Reports: Osteoarthritis Neurological History: Reports: CVA, Seizure Other Neuro History: hx of 1 seizure in 2015- still taking medication Psychiatric History: Reports: None Endocrine/Metabolic History: Reports: Diabetes, Type II, Obesity/BMI 30+ Hematologic History: Reports: None Immunologic History: Reports: None Oncologic (Cancer) History: Reports: None Dermatologic History: Reports: None - Infectious Disease History Infectious Disease History: Reports: Chicken Pox - Past Surgical History Head Surgeries/Procedures: Reports: None HEENT Surgical History: Reports: Cataract Surgery Cardiovascular Surgical History: Reports: Carotid Stents Respiratory Surgical History: Reports: None GI Surgical History: Reports: Colonoscopy Female Surgical History: Reports: None Endocrine Surgical History: Reports: None Neurological Surgical History: Reports: None Musculoskeletal Surgical History: Reports: None Oncologic Surgical History: Reports: None Dermatological Surgical History: Reports: None Social & Family History - Family History Family Medical History: No Pertinent Family History - Tobacco Use Tobacco Use Status *Q: Never Tobacco User - Caffeine Use Caffeine Use: Reports: None - Recreational Drug Use Recreational Drug Use: No ED ROS GENERAL - Review of Systems Review Of Systems: Comprehensive ROS is negative, except as noted in HPI. ED EXAM, GENERAL - Physical Exam Exam: See Below Free Text/Narrative:: My physical exam is in the HPI Course - Vital Signs Text/Narrative:: 12:02 PM the patient's BUN and creatinine are slightly elevated. Choice of steroid versus nonsteroid discussed with the patient. She can monitor her blood sugar and could double her Metformin if necessary. She has had some confusion and was tenths when she took prednisone in the past but was willing to try Decadron and Medrol. She will monitor her own blood sugars. Last Recorded V/S: Last Vital Signs Temp 35.7 C L 11/23/20 09:35 Pulse 74 11/23/20 12:22 Resp 20 11/23/20 12:22 BP 163/64 H 11/23/20 12:22 Pulse Ox 98 11/23/20 12:22 - Orders/Labs/Meds Labs: Laboratory Tests 11/23/20 Range/Units 10:38 Sodium 138 (136-145) mmol/L Potassium 4.8 (3.5-5.1) mmol/L Chloride 103 (98-107) mmol/L Carbon Dioxide 26.1 (21.0-32.0) mmol/L BUN 20 H (7.0-18.0) mg/dL Creatinine 1.3 H (0.6-1.0) mg/dL Est Cr Clr Drug Dosing 37.70 mL/min Estimated GFR (MDRD) 40.5 ml/min Glucose 233 H (74-106) mg/dL Calcium 9.5 (8.5-10.1) mg/dL Meds: Medications Discontinued Medications Generic Name Dose Route Start Last Admin Trade Name Freq PRN Reason Stop Dose Admin Cyclobenzaprine HCl 5 mg 11/23/20 11:59 09/24/21 12:12 Cyclobenzaprine 5 Mg Tab PO 11/23/20 12:00 5 mg STAT STA Administration Dexamethasone 4 mg 11/23/20 11:58 11/23/20 12:07 Dexamethasone 10 Mg/Ml Sdv IM 11/23/20 11:59 4 mg STAT STA Administration Departure - Departure Time of Disposition: 12:28 Disposition: Home, Self-Care 01 Condition: Good Clinical Impression: Back spasm, DJD (degenerative joint disease), lumbar - Discharge Information Prescriptions: Cyclobenzaprine [Flexeril] 5 mg PO TID PRN #15 tab PRN Reason: Muscle Spasm - Painful methylPREDNISolone [Medrol Dose Pack] 4 mg PO DAILY #21 tab Instructions: Muscle Cramps and Spasms, Chronic Back Pain, [id number] Referrals: Ming Delacruz MD [Primary Care Provider] - Forms: ED Department Discharge Additional Instructions: Monitor your blood sugar closely. Keep in touch with your doctor. Steroids can increase your blood sugar. You might have a double your Metformin or your doctor might even have the supplement with another medication. Return immediately if he had numbness or loss of movement in your lower extremities or buttocks. Return immediately if you have loss of control of your bowel or bladder. [facility] - Primary Care [address] [place] [address] [address] The following information is given to patients seen in the emergency department who are being discharged to home. This information is to outline your options for follow-up care. We provide all patients seen in our emergency department with a follow-up referral. The need for follow-up, as well as the timing and circumstances, are variable depending upon the specifics of your emergency department visit. If you don't have a primary care physician on staff, we will provide you with a referral. We always advise you to contact your personal physician following an emergency department visit to inform them of the circumstance of the visit and for follow-up with them and/or the need for any referrals to a consulting specialist. The emergency department will also refer you to a specialist when appropriate. This referral assures that you have the opportunity for follow-up care with a specialist. All of these measure are taken in an effort to provide you with optimal care, which includes your follow-up. Under all circumstances we always encourage you to contact your private physician who remains a resource for coordinating your care. When calling for follow-up care, please make the office aware that this follow-up is from your recent emergency room visit. If for any reason you are refused follow-up, please contact the [facility] Emergency Department at and asked to speak to the emergency department charge nurse. Sepsis Event Note (ED) - Evaluation Sepsis Screening Result: No Definite Risk
[2020-11-23 11:17] LABS: CARBON DIOXIDE,CO2 26.1 mmol/L (21.0-32.0); POTASSIUM,K 4.8 mmol/L (3.5-5.1)
--- NOTE | 2020-11-23 11:47 | CR ---
INDICATION: Severe Pain COMPARISON: None FINDINGS AND IMPRESSION: Slight anterolisthesis of L4 on L5 and slight retrolisthesis of L2 on L3. Minimal sagging of the superior endplate of T12 and possibly L1 of unknown chronicity. Mild multilevel loss of disc height. Moderate facet arthropathy at the lower lumbar levels. Bones are osteopenic which limits detection of nondisplaced fractures. Dictated by Dana Timmons MD @ 11/23/2020 11:46:28 AM (Electronically Signed)
--- NOTE | 2020-11-23 11:53 | CR ---
INDICATION: Severe Pain COMPARISON: None FINDINGS AND IMPRESSION: Bones are osteopenic which limits detection of nondisplaced fractures. There is incomplete ring of the pelvic inlet which I suspect may be due to patient positioning, however, if clinical concern for pelvic fracture, consider oblique and inlet views. Dictated by Dana Timmons MD @ 11/23/2020 11:51:09 AM (Electronically Signed)
[2020-11-23] MEDS ORDERED: Dexamethasone 10 MG/ML SDV IM STA (11:58)
[2020-11-23] MEDS ORDERED: Cyclobenzaprine 5 MG Tab PO STA (11:59)
== END 2020-11-23 12:29 | disposition home or self-care (01) ==
LOC: MW.ED 09:11
DX: M47.816 Spondylosis without myelopathy or radiculopathy, lumbar region (principal); J44.9 Chronic obstructive pulmonary disease, unspecified; M19.90 Unspecified osteoarthritis, unspecified site; E11.9 Type 2 diabetes mellitus without complications; E66.9 Obesity, unspecified; Z68.29 Body mass index [BMI] 29.0-29.9, adult; Z88.8 Allergy status to other drugs, medicaments and biological substances; Z79.84 Long term (current) use of oral hypoglycemic drugs; Z79.02 Long term (current) use of antithrombotics/antiplatelets; Z79.899 Other long term (current) drug therapy
CPT/HCPCS: 36415; 72100; 72170; 80048; 96372; 99283; A9270; J1100

== ENCOUNTER 2020-11-25 07:30 | Emergency (ER) | payer MEDICARE, OTHER ==
[2020-11-25] MEDS ORDERED: HYDROmorphone 1 MG/ML Syringe IM ONE (08:11)
[2020-11-25] MEDS ORDERED: Diazepam 2 MG Tab PO ONE (08:12)
--- NOTE | 2020-11-25 08:16 | EDM.PDOC ---
ED HPI GENERAL MEDICAL PROBLEM - General Chief Complaint: Back Pain or Injury Stated Complaint: BACK PAIN Time Seen by Provider: 11/25/20 07:49 - History of Present Illness INITIAL COMMENTS - FREE TEXT/NARRATIVE: History of present illness: [] This patient has back pain for 3 days. She has had chronic back pain but it became intolerable and difficult to move about 3 days ago. I saw her 2 days ago. Her x-rays showed DJD especially in the lumbar spine. I sent her home with a prescription for steroids and a muscle relaxer. Whether or not to get nonsteroidals or steroids was problematic because the patient is diabetic but she also has borderline renal function with slight elevation in her creatinine. We chose steroids and monitoring her own sugar and follow-up with her primary doctor as needed for that. The patient has been compliant with her medication schedule but says she cannot sleep because the pain so bad. There is some radiation of pain down the posterior thigh and the left but no loss of control of bowel or bladder no saddle anesthesia no numbness or weakness in the lower extremities. Review of systems: As per history of present illness and below otherwise all systems reviewed and negative. Past medical history: As per history of present illness and as reviewed below otherwise noncontributory. Surgical history: As per history of present illness and as reviewed below otherwise noncontributo ry. Social history: No reported history of drug or alcohol abuse. Family history: As per history of present illness and as reviewed below otherwise noncontributory. Physical exam: Constitutional - well developed, well-nourished and in no acute distress HEENT - normocephalic, no evidence of trauma - external nose and mouth normal - no mass in neck and no JVD - mucosae moist EYES - full EOM, PERRL, no icterus - no evidence of inflammation, injection, or drainage Respiratory - no respiratory distress, equal bilateral expansion, lungs clear to auscultation and no abnormal lung sounds Cardiovascular - Regular Rhythm with S1 and S2 appreciated and no murmur, gallop or rub. GI -abdomen is examined carefully because of the possibility back pain could indicate some intra-abdominal problem which would be in visible on plain films of the spine and pelvis. Abdomen soft without distension or organomegaly - normal bowel sounds - no guard or rebound Musculoskeletal there is new no new acute tenderness or pain in the lumbar spine. Things are essentially unchanged from 2 days ago. Straight leg raise is negative for radicular pain on either side to 45 degrees. No gross deformity of long bones or joints - no tenderness, swelling or edema Neurologic - Alert and oriented times four - CN II-XII grossly intact - motor sensory and coordination symmetrically normal Psychiatric - appropriate mood and affect with normal thought content Hematologic - No petechiae or purpura - mucosa appropriate color and sclera not pale - normal nail bed color and refill Integument - no rash or evidence of trauma - normal turgor Diagnostics: [] Therapeutics: [] Impression: [] Plan: [] Definitive disposition and diagnosis as appropriate pending reevaluation and review of above. Back Pain Score (Numeric/FACES): 10 - Related Data Allergies Allergy/AdvReac Type Severity Reaction Status Date / Time prednisone Allergy Hallucinati Verified 11/25/20 07:51 ons Home Meds: Home Meds OXcarbazepine [Oxcarbazepine] 150 mg PO BID 01/07/18 [History] Glimepiride [Amaryl] 2 mg PO QPM 05/31/18 [History] Clopidogrel [Plavix] 75 mg PO DAILY 06/28/19 [History] Docusate Sodium [Colace] 100 mg PO DAILY 06/28/19 [History] Glimepiride [Amaryl] 4 mg PO ACBREAKFAST 06/28/19 [History] Ipratropium/Albuterol Sulfate [Iprat-Albut 0.5-3(2.5) mg/3 ml] 3 ml IH QID 06/28/19 [History] Rosuvastatin Calcium 20 mg PO DAILY 06/28/19 [History] metFORMIN [Glucophage] 250 mg PO BIDMEALS 06/28/19 [History] Cyclobenzaprine [Flexeril] 5 mg PO TID PRN #15 tab 11/23/20 [Rx] methylPREDNISolone [Medrol Dose Pack] 4 mg PO DAILY #21 tab 11/23/20 [Rx] Acetaminophen/oxyCODONE [Percocet 325-5 MG] 1 - 2 each PO Q6H PRN #24 tab 11/25/20 [Rx] Past Medical History HEENT History: Reports: Cataract Cardiovascular History: Reports: Other (See Below) Other Cardiovascular History: BLE edema Respiratory History: Reports: COPD, SOB Gastrointestinal History: Reports: None Genitourinary History: Reports: None BAG HANGER History: Reports: None Musculoskeletal History: Reports: Osteoarthritis Neurological History: Reports: CVA, Seizure Other Neuro History: hx of 1 seizure in 2015- still taking medication Psychiatric History: Reports: None Endocrine/Metabolic History: Reports: Diabetes, Type II, Obesity/BMI 30+ Hematologic History: Reports: None Immunologic History: Reports: None Oncologic (Cancer) History: Reports: None Dermatologic History: Reports: None - Infectious Disease History Infectious Disease History: Reports: Chicken Pox - Past Surgical History Head Surgeries/Procedures: Reports: None HEENT Surgical History: Reports: Cataract Surgery Cardiovascular Surgical History: Reports: Carotid Stents Respiratory Surgical History: Reports: None GI Surgical History: Reports: Colonoscopy Female Surgical History: Reports: None Endocrine Surgical History: Reports: None Neurological Surgical History: Reports: None Musculoskeletal Surgical History: Reports: None Oncologic Surgical History: Reports: None Dermatological Surgical History: Reports: None Social & Family History - Family History Family Medical History: No Pertinent Family History - Tobacco Use Second Hand Smoke Exposure: No - Caffeine Use Caffeine Use: Reports: None - Recreational Drug Use Recreational Drug Use: No ED ROS GENERAL - Review of Systems Review Of Systems: Comprehensive ROS is negative, except as noted in HPI. ED EXAM, GENERAL - Physical Exam Exam: See Below Free Text/Narrative:: My physical exam is in the HPI Course - Vital Signs Text/Narrative:: Patient agrees that with limited availability of imaging and no availability on Thursday for me of an MRI acutely here that she will try some more significant pain medicine, he did my warnings about constipation when taking narcotics, see her doctor in a few days, allow her doctor decide if she needs to be referred for urgent but semielective MRI if she is failing to improve. She understands cauda equina warnings and will return if these things develop. Last Recorded V/S: Last Vital Signs Temp 36.0 C L 11/25/20 07:48 Pulse 82 11/25/20 07:48 Resp 20 11/25/20 07:48 BP 107/53 L 11/25/20 07:48 Pulse Ox 95 11/25/20 07:48 - Orders/Labs/Meds Meds: Medications Discontinued Medications Generic Name Dose Route Start Last Admin Trade Name Freq PRN Reason Stop Dose Admin Diazepam 2 mg 11/25/20 08:12 Diazepam 2 Mg Tab PO 11/25/20 08:13 ONETIME ONE Hydromorphone HCl 1 mg 11/25/20 08:11 Hydromorphone 1 Mg/Ml Syringe IM 11/25/20 08:12 ONETIME ONE Departure - Departure Time of Disposition: 08:40 Disposition: Home, Self-Care 01 Condition: Good Clinical Impression: Severe back pain - Discharge Information Prescriptions: Acetaminophen/oxyCODONE [Percocet 325-5 MG] 1 - 2 each PO Q6H PRN #24 tab PRN Reason: Pain (Severe 7-10) Instructions: Acute Back Pain, Adult Referrals: Ming Delacruz MD [Primary Care Provider] - Forms: ED Department Discharge Additional Instructions: Again, if you develop loss of control of bowel or bladder, numbness in your buttocks or lower extremities, failure to control movement in your lower extremities, he did come to the emergency room immediately for possible transfer to the care of a neurosurgeon. Pain medicine can be addictive. A few days probably will not causing any problem other than constipation. It is imperative that you take a stool softener with plenty of fluids while you are taking pain medicine. Be careful that you do not get dizzy or weak and lose control of your balance while taking pain medicine and muscle relaxers. If you taking the stool softener and plenty of fluids and feel like you are becoming bloated need to have a bowel movement you can take what is called a cathartic laxative. The pharmacist can tell you which is the best johnson for cathartic laxative. These include things such as Ex-Lax and bottles of magnesium citrate. [facility] - [facility] [address] [place] [id number] [address] [id number] The following information is given to patients seen in the emergency department who are being discharged to home. This information is to outline your options for follow-up care. We provide all patients seen in our emergency department with a follow-up referral. The need for follow-up, as well as the timing and circumstances, are variable depending upon the specifics of your emergency department visit. If you don't have a primary care physician on staff, we will provide you with a referral. We always advise you to contact your personal physician following an emergency department visit to inform them of the circumstance of the visit and for follow-up with them and/or the need for any referrals to a consulting specialist. The emergency department will also refer you to a specialist when appropriate. This referral assures that you have the opportunity for follow-up care with a specialist. All of these measure are taken in an effort to provide you with optimal care, which includes your follow-up. Under all circumstances we always encourage you to contact your private physician who remains a resource for coordinating your care. When calling for follow-up care, please make the office aware that this follow-up is from your recent emergency room visit. If for any reason you are refused follow-up, please contact the [facility] Emergency Department at and asked to speak to the emergency department charge nurse. Sepsis Event Note (ED) - Evaluation Sepsis Screening Result: No Definite Risk - Focused Exam Vital Signs: Vital Signs Temp Pulse Resp BP Pulse Ox 11/25/20 07:48 36.0 C L 82 20 107/53 L 95
== END 2020-11-25 08:47 | disposition home or self-care (01) ==
LOC: MW.ED 07:30
DX: M54.5 Low back pain (principal); J44.9 Chronic obstructive pulmonary disease, unspecified; M19.90 Unspecified osteoarthritis, unspecified site; E11.9 Type 2 diabetes mellitus without complications; E66.9 Obesity, unspecified; Z68.29 Body mass index [BMI] 29.0-29.9, adult; Z88.8 Allergy status to other drugs, medicaments and biological substances; Z79.84 Long term (current) use of oral hypoglycemic drugs; Z79.899 Other long term (current) drug therapy
CPT/HCPCS: 96372; 99283; A9270; J1170

== ENCOUNTER 2021-01-16 08:35 | Emergency (ER) | payer MEDICARE, OTHER ==
--- NOTE | 2021-01-16 10:55 | EDM.PDOC ---
ED HPI GENERAL MEDICAL PROBLEM - General Chief Complaint: Lower Extremity Injury/Pain Stated Complaint: L LEG PAIN Time Seen by Provider: 01/16/21 08:39 Source of Information: Reports: Patient, Family History Limitations: Reports: No Limitations - History of Present Illness INITIAL COMMENTS - FREE TEXT/NARRATIVE: HISTORY AND PHYSICAL: History of present illness: Patient is a 70-year-old female who presents emergency room today with concern of left leg pain and back pain in relation to a known bulging disc that has been ongoing for the past 3 months. Patient is at bedside with her . states that they came to the emergency room today because they feel like patient's primary care provider has not completely addressed her pain. Patient states that her pain is the exact same that has been for 3 months and has not worsened. Patient states that she had an injection of her L4 nerve root performed approximately 2 weeks ago and states that this did not worsen her pain but did also did not help her pain. Patient's also states that she has been on "way too much "oxycodone from her primary care provider and states that he does not want her to take this anymore and she states that this only helped minimally and she does also not want to take anymore. Patient states that the pain is a shooting/tingling and does not express any numbness. Patient denies any loss or retention of bowel bladder function or saddle anesthesia. states that patient does have an appointment in 2 days with her primary care provider for follow-up but states that he is upset that "nobody is doing anything for her pain ". Patient denies any falls or injuries. Patient denies any fever, IV drug use, or history of cancer. Patient denies fever, chills, chest pain, shortness of breath, or cough. Denies headache, neck stiff ness, change in vision, syncope, or near syncope. Denies nausea, vomiting, abdominal pain, diarrhea, constipation, or dysuria. Has not noted any blood in urine or stool. Patient has been eating and drinking appropriately. Review of systems: As per history of present illness and below otherwise all systems reviewed and negative. Past medical history: As per history of present illness and as reviewed below otherwise noncontributory. Surgical history: As per history of present illness and as reviewed below otherwise noncontrib utory. Social history: See social history for further information Family history: As per history of present illness and as reviewed below otherwise noncontributory. Physical exam: General: Patient is alert, oriented, and in no acute distress. Patient laying comfortably on exam table. Vitals stable and reviewed by me; HEENT: Atraumatic, normocephalic, pupils equal and reactive bilaterally, neg ative for conjunctival pallor or scleral icterus, mucous membranes moist, throat clear, neck supple, nontender, trachea midline. No drooling or trismus noted. No meningeal signs. No hot potato voice noted. Lungs: Clear to auscultation, breath sounds equal bilaterally, chest nontender. Heart: S1S2, regular rate and rhythm without overt murmur Abdomen: Soft, nondistended, nontender. Negative for masses or hepatosplenomegaly. Negative for costovertebral tenderness. Pelvis: Stable nontender. Genitourinary: Deferred. Rectal: Deferred. Skin: Intact, warm, dry. No lesions or rashes noted. Extremities: No obvious deformity of the complete spine. No step-offs, crepitus, or point tenderness to palpation of the complete plan. Patient does have full range of motion of all extremities without pain or difficulty. Patient does express pain to light touch of the L4 nerve root distribution of the left lower extremity more prominent over the left anterior chandler but does extend up into the left lateral thigh. No overlying evidence of ecchymosis, edema, or erythema. Dorsalis pedis and posterior tibial pulses are grossly intact of bilateral lower extremities with capillary refill less than 2 seconds. All compartments are soft of the left lower extremity. Intact patellar reflexes bilaterally. Otherwise, atraumatic, negative for cords or calf pain. Neurovascular unremarkable. Neuro: Awake, alert, oriented. Cranial nerves II through XII unremarkable. Cerebellum unremarkable. Motor and sensory unremarkable throughout. Exam nonfocal. Patient does have a slow but steady gait, per her baseline does have difficulties with ambulation. Medical Decision Making: Patient is a 70-year-old female resents emergency room today with concern of a known bulging disc causing left lower extremity pain. On chart review, patient did have a recent MRI of her lumbar spine performed a month ago on 12/04/2020 that does show a L4-L5 bulky left lateral foraminal/extraforaminal disc protrusion impinges at the left L4 nerve root. Moderate left front to back neuroforaminal stenosis. Grade 1 degenerative anterolisthesis and bilateral facet arthrosis. At L5-S1, bulky right forearm minimal/far lateral osteophyte ridging contacts and mildly impinges the existing L5 nerve root. Lesser spondylitic changes at additional levels as detailed above. On examination of patient, she does have full range of motion of the complete spine. She does have full range of motion of all extremities including her left lower extremity. Patient does express pain to light touch of the L4 nerve root on the anterior chandler of the left lower extremity that does extend up into the lateral thigh however, no overlying ecchymosis, edema, erythema. Straight leg raise is intact bilaterally. Patient does have a slow but steady gait, according to her, she does not walk well at baseline and has been using a walker for the past 3 months. Given that patient has not had any change in her symptoms over the past 3months and examination is nonfocal and is in the process of getting follow-up with a neurology with her primary care provider, according to patient and her , and does have an appointment in 2 days for for reevaluation with her primary care provider, I do not feel that patient requires any additional imaging given the recent MRI with physical exam findings consistent with pain in the L4 nerve root distribution, no change in her discomfort for the past 3 months, no concern for cauda equina syndrome, and a non-focal neuro exam. At this time, I did discuss trying gabapentin while in the process of waiting for her appointment on Thursday with her primary care provider to discuss further management. Voices understanding and is agreeable to plan of care. Denies any further questions or concerns at this time. Diagnostics: None Therapeutics: None Prescription: Gabapentin Impression: Lumbar bulging disc Plan: 1. Take medication as prescribed. You can also take Tylenol as directed for pain and discomfort. 2. Follow-up with your primary care provider on Thursday as scheduled and as discussed. Return to the ED as needed and as discussed. Definitive disposition and diagnosis as appropriate pending reevaluation and review of above. Left Back Pain Score (Numeric/FACES): 5 - Related Data Allergies Allergy/AdvReac Type Severity Reaction Status Date / Time prednisone Allergy Hallucinati Verified 01/16/21 10:00 ons Home Meds: Home Meds OXcarbazepine [Oxcarbazepine] 150 mg PO BID 01/07/18 [History] Glimepiride [Amaryl] 2 mg PO QPM 05/31/18 [History] Glimepiride [Amaryl] 4 mg PO ACBREAKFAST 06/28/19 [History] Rosuvastatin Calcium 20 mg PO DAILY 06/28/19 [History] metFORMIN [Glucophage] 250 mg PO BIDMEALS 06/28/19 [History] Clopidogrel [Plavix] 75 mg PO DAILY 01/16/21 [History] Gabapentin [Neurontin] 300 mg PO BEDTIME #15 cap 01/16/21 [Rx] Past Medical History HEENT History: Reports: Cataract Cardiovascular History: Reports: Other (See Below) Other Cardiovascular History: BLE edema Respiratory History: Reports: COPD, SOB Gastrointestinal History: Reports: None Genitourinary History: Reports: None SLIP BOX CHANGER History: Reports: None Musculoskeletal History: Reports: Osteoarthritis Neurological History: Reports: CVA, Seizure Other Neuro History: hx of 1 seizure in 2014- still taking medication Psychiatric History: Reports: None Endocrine/Metabolic History: Reports: Diabetes, Type II Hematologic History: Reports: None Immunologic History: Reports: None Oncologic (Cancer) History: Reports: None Dermatologic History: Reports: None - Infectious Disease History Infectious Disease History: Reports: Chicken Pox - Past Surgical History Head Surgeries/Procedures: Reports: None HEENT Surgical History: Reports: Cataract Surgery Cardiovascular Surgical History: Reports: Carotid Stents Respiratory Surgical History: Reports: None GI Surgical History: Reports: Colonoscopy Female Surgical History: Reports: None Endocrine Surgical History: Reports: None Neurological Surgical History: Reports: None Musculoskeletal Surgical History: Reports: None Oncologic Surgical History: Reports: None Dermatological Surgical History: Reports: None Social & Family History - Family History Family Medical History: No Pertinent Family History - Tobacco Use Tobacco Use Status *Q: Former Tobacco User Used Tobacco, but Quit: Yes Month/Year Tobacco Last Used: 01/2006 - Caffeine Use Caffeine Use: Reports: None - Recreational Drug Use Recreational Drug Use: No Review of Systems - Review of Systems Review Of Systems: Comprehensive ROS is negative, except as noted in HPI. ED EXAM, GENERAL - Physical Exam Exam: See Below (See dictation) Course - Vital Signs Last Recorded V/S: Last Vital Signs Temp 96.8 F L 01/16/21 09:50 Pulse 85 01/16/21 09:50 Resp BP 123/72 01/16/21 09:50 Pulse Ox 95 01/16/21 09:50 Departure - Departure Time of Disposition: 10:54 Disposition: Home, Self-Care 01 Clinical Impression: Bulging lumbar disc - Discharge Information Prescriptions: Gabapentin [Neurontin] 300 mg PO BEDTIME #15 cap Referrals: Ming Delacruz MD [Primary Care Provider] - Forms: ED Department Discharge Additional Instructions: The following information is given to patients seen in the emergency department who are being discharged to home. This information is to outline your options for follow-up care. We provide all patients seen in our emergency department with a follow-up referral. The need for follow-up, as well as the timing and circumstances, are variable depending upon the specifics of your emergency department visit. If you don't have a primary care physician on staff, we will provide you with a referral. We always advise you to contact your personal physician following an emergency department visit to inform them of the circumstance of the visit and for follow-up with them and/or the need for any referrals to a consulting specialist. The emergency department will also refer you to a specialist when appropriate. This referral assures that you have the opportunity for follow-up care with a specialist. All of these measure are taken in an effort to provide you with optimal care, which includes your follow-up. Under all circumstances we always encourage you to contact your private physician who remains a resource for coordinating your care. When calling for follow-up care, please make the office aware that this follow-up is from your recent emergency room visit. If for any reason you are refused follow-up, please contact the [facility] Emergency Department at and asked to speak to the emergency department charge nurse. [facility] [address] [place] [address] [id number] [address] [address] 1. Take medication as prescribed. You can also take Tylenol as directed for pain and discomfort. 2. Follow-up with your primary care provider on Thursday as scheduled and as discussed. Return to the ED as needed and as discussed. Sepsis Event Note (ED) - Evaluation Sepsis Screening Result: No Definite Risk - Focused Exam Vital Signs: Vital Signs Temp Pulse BP Pulse Ox 01/16/21 09:50 96.8 F L 85 123/72 95
== END 2021-01-16 11:18 | disposition home or self-care (01) ==
LOC: MW.ED 08:35
DX: M51.26 Other intervertebral disc displacement, lumbar region (principal); J44.9 Chronic obstructive pulmonary disease, unspecified; E11.9 Type 2 diabetes mellitus without complications; Z87.891 Personal history of nicotine dependence; Z88.8 Allergy status to other drugs, medicaments and biological substances; Z79.84 Long term (current) use of oral hypoglycemic drugs; Z79.02 Long term (current) use of antithrombotics/antiplatelets; Z79.899 Other long term (current) drug therapy
CPT/HCPCS: 99283

== ENCOUNTER 2021-01-17 15:29 | Inpatient (IN) | payer MEDICARE, OTHER ==
--- NOTE | 2021-01-17 15:49 | EDM.PDOC ---
ED HPI GENERAL MEDICAL PROBLEM - General Chief Complaint: Neurological Problem Stated Complaint: STATED POSSIBLE STROKE Time Seen by Provider: 01/17/21 15:44 Source of Information: Reports: Patient History Limitations: Reports: No Limitations - History of Present Illness INITIAL COMMENTS - FREE TEXT/NARRATIVE: Patient is a 70-year-old female history of chronic back pain presents today for possible slurred speech. Patient was seen yesterday for her chronic back pain. here with her is difficult to obtain history he states that she may have had some slurred speech started last night around 11 PM but feels he got worse this morning so he brought her in. On exam she does not feel she has slurred speech she is moving her extremity has no numbness weakness no vision changes and no change in cognition per her . He also is concerned that she slept a lot today and seemed very tired. Patient is up denies any fevers cough or other infectious symptoms - Related Data Allergies Allergy/AdvReac Type Severity Reaction Status Date / Time prednisone Allergy Hallucinati Verified 01/16/21 10:00 ons Home Meds: Home Meds OXcarbazepine [Oxcarbazepine] 150 mg PO BID 01/07/18 [History] Glimepiride [Amaryl] 2 mg PO QPM 05/31/18 [History] Glimepiride [Amaryl] 4 mg PO ACBREAKFAST 06/28/19 [History] Rosuvastatin Calcium 20 mg PO DAILY 06/28/19 [History] metFORMIN [Glucophage] 250 mg PO BIDMEALS 06/28/19 [History] Clopidogrel [Plavix] 75 mg PO DAILY 01/16/21 [History] Gabapentin [Neurontin] 300 mg PO BEDTIME #15 cap 01/16/21 [Rx] Past Medical History HEENT History: Reports: Cataract Cardiovascular History: Reports: Other (See Below) Other Cardiovascular History: BLE edema Respiratory History: Reports: COPD, SOB Gastrointestinal History: Reports: None Genitourinary History: Reports: None D[employer]ATOR History: Reports: None Musculoskeletal History: Reports: Osteoarthritis Neurological History: Reports: CVA, Seizure Other Neuro History: hx of 1 seizure in 2014- still taking medication Psychiatric History: Reports: None Endocrine/Metabolic History: Reports: Diabetes, Type II Hematologic History: Reports: None Immunologic History: Reports: None Oncologic (Cancer) History: Reports: None Dermatologic History: Reports: None - Infectious Disease History Infectious Disease History: Reports: Chicken Pox - Past Surgical History Head Surgeries/Procedures: Reports: None HEENT Surgical History: Reports: Cataract Surgery Cardiovascular Surgical History: Reports: Carotid Stents Respiratory Surgical History: Reports: None GI Surgical History: Reports: Colonoscopy Female Surgical History: Reports: None Endocrine Surgical History: Reports: None Neurological Surgical History: Reports: None Musculoskeletal Surgical History: Reports: None Oncologic Surgical History: Reports: None Dermatological Surgical History: Reports: None Social & Family History - Family History Family Medical History: No Pertinent Family History - Tobacco Use Tobacco Use Status *Q: Former Tobacco User Used Tobacco, but Quit: Yes Month/Year Tobacco Last Used: 03/2005 - Caffeine Use Caffeine Use: Reports: None - Recreational Drug Use Recreational Drug Use: No ED ROS GENERAL - Review of Systems Review Of Systems: See Below Constitutional: Reports: No Symptoms HEENT: Reports: No Symptoms Respiratory: Reports: No Symptoms Cardiovascular: Reports: No Symptoms Endocrine: Reports: No Symptoms GI/Abdominal: Reports: No Symptoms : Reports: No Symptoms Musculoskeletal: Reports: No Symptoms Skin: Reports: No Symptoms Neurological: Reports: No Symptoms Psychiatric: Reports: No Symptoms Hematologic/Lymphatic: Reports: No Symptoms Immunologic: Reports: No Symptoms ED EXAM, NEURO - Physical Exam Exam: See Below Exam Limited By: No Limitations General Appearance: Alert, WD/WN, No Apparent Distress Eye Exam: Bilateral Eye: EOMI, PERRL Ears: Normal External Exam Nose: Normal Inspection Throat/Mouth: Normal Inspection Head Exam: Atraumatic, Normocephalic Neck: Normal Inspection, Supple, Non-Tender Respiratory/Chest: No Respiratory Distress, Lungs Clear, Normal Breath Sounds Cardiovascular: Normal Peripheral Pulses, Regular Rate, Rhythm, No Edema GI/Abdominal: Normal Bowel Sounds, Soft, Non-Tender Neurological: Alert, Normal Mood/Affect, Normal Gait, No Motor/Sensory Deficits, Oriented x 3 Extremities: Normal Inspection Course - Vital Signs Last Recorded V/S: Last Vital Signs Temp 97.3 F 01/17/21 15:37 Pulse 88 01/17/21 16:43 Resp 16 01/17/21 16:43 BP 142/62 H 01/17/21 16:43 Pulse Ox 98 01/17/21 16:43 - Orders/Labs/Meds Orders: Active Orders 24 hr Category Date Time Status Patient Status [ADT] Routine ADT 01/17/21 17:59 Ordered BLOOD GAS VENOUS [BG] Stat Lab 01/17/21 16:25 Ordered CULTURE BLOOD [BC] Stat Lab 01/17/21 16:15 Results CULTURE BLOOD [BC] Stat Lab 01/17/21 16:25 Received DRUG SCREEN, URINE [URCHEM] Stat Lab 01/17/21 15:45 Ordered OSMOLALITY - SERUM [REF] Stat Lab 01/17/21 16:31 Ordered OSMOLALITY - URINE Stat Lab 01/17/21 16:31 Ordered REFLEX LACTIC ACID YES OR NO [CHEM] Routine Lab 01/17/21 17:20 Received UA W/AJITH RFLX IF INDICATED [URIN] Stat Lab 01/17/21 15:45 Ordered Dextrose 50% in Water Med 01/17/21 17:58 Ordered 50 ml IVPUSH ASDIRECTED PRN Glucagon,Human Recombinant [GlucaGen] Med 01/17/21 17:58 Ordered 1 mg IM ASDIRECTED PRN Sodium Chloride 0.9% [Normal Saline] 1,000 ml Med 01/17/21 17:23 Active IV .Bolus Blood Culture x2 Reflex Set [OM.PC] Stat Oth 01/17/21 15:45 Ordered Medication Orders Dextrose/Water (50% Dextrose In Water 50 Ml Syringe) 50 ml IVPUSH ASDIRECTED PRN PRN Reason: Hypoglycemia Glucagon (Glucagon,Human Recombinant 1 Mg Vial) 1 mg IM ASDIRECTED PRN PRN Reason: Hypoglycemia Sodium Chloride (Normal Saline) 1,000 mls @ 1,000 mls/hr IV .Bolus ONE Stop: 01/17/21 18:22 Last Admin: 01/17/21 17:48 Dose: 1,000 mls/hr Documented by: AMANDA Labs: Laboratory Tests 01/17/21 01/17/21 01/17/21 Range/Units 15:35 15:35 16:25 WBC 7.65 (4.0-11.0) K/uL RBC 4.63 (4.30-5.90) M/uL Hgb 14.1 (12.0-16.0) g/dL Hct 42.4 (36.0-46.0) % MCV 91.6 (80.0-98.0) fL MCH 30.5 (27.0-32.0) pg MCHC 33.3 (31.0-37.0) g/dL RDW Std Deviation 44.7 (28.0-62.0) fl RDW Coeff of [place] 14 (11.0-15.0) % Plt Count 307 (150-400) K/uL MPV 9.70 (7.40-12.00) fL Neut % (Auto) 65.4 (48.0-80.0) % Lymph % (Auto) 24.6 (16.0-40.0) % [place] % (Auto) 8.5 (0.0-15.0) % Eos % (Auto) 1.0 (0.0-7.0) % Baso % (Auto) 0.5 (0.0-1.5) % Neut # (Auto) 5.0 (1.4-5.7) K/uL Lymph # (Auto) 1.9 (0.6-2.4) K/uL [place] # (Auto) 0.7 (0.0-0.8) K/uL Eos # (Auto) 0.1 (0.0-0.7) K/uL Baso # (Auto) 0.0 (0.0-0.1) K/uL Nucleated RBC % 0.0 /100WBC Nucleated RBCs # 0 K/uL Sodium 135 L (136-145) mmol/L Potassium 4.9 (3.5-5.1) mmol/L Chloride 100 (98-107) mmol/L Carbon Dioxide 22.3 (21.0-32.0) mmol/L BUN 33 H (7.0-18.0) mg/dL Creatinine 2.0 H (0.6-1.0) mg/dL Est Cr Clr Drug Dosing TNP Estimated GFR (MDRD) 24.6 ml/min Glucose 571 H* (74-106) mg/dL Lactic Acid 2.4 H* (0.4-2.0) mmol/L Calcium 8.5 (8.5-10.1) mg/dL Phosphorus 4.9 H (2.6-4.7) mg/dL Magnesium 2.1 (1.8-2.4) mg/dL Total Bilirubin 0.5 (0.2-1.0) mg/dL AST 18 (15-37) IU/L ALT 16 (14-63) IU/L Alkaline Phosphatase 119 H (46-116) U/L Creatine Kinase 60 (26-308) U/L Troponin I < 0.050 (0.000-0.056) ng/mL Total Protein 6.7 (6.4-8.2) g/dL Albumin 2.7 L (3.4-5.0) g/dL Globulin 4.0 (2.6-4.0) g/dL Albumin/Globulin Ratio 0.7 L (0.9-1.6) Lipase 187 (73-393) U/L Ethyl Alcohol < 3.0 mg/dL Meds: Medications Generic Name Dose Route Start Last Admin Trade Name Freq PRN Reason Stop Dose Admin Dextrose/Water 50 ml 01/17/21 17:58 50% Dextrose In Water 50 Ml Syringe IVPUSH ASDIRECTED PRN Hypoglycemia Glucagon 1 mg 01/17/21 17:58 Glucagon,Human Recombinant 1 Mg Vial IM ASDIRECTED PRN Hypoglycemia Sodium Chloride 1,000 mls @ 1,000 mls/hr 01/17/21 17:23 01/17/21 17:48 Normal Saline IV 01/17/21 18:22 1,000 mls/hr .Bolus ONE Administration Discontinued Medications Generic Name Dose Route Start Last Admin Trade Name Freq PRN Reason Stop Dose Admin Insulin Human Regular 10 unit 01/17/21 17:58 Insulin Regular, Human 100 Units/Ml 10 Ml Vial IVPUSH 01/17/21 17:59 ONETIME ONE Protocol Iopamidol 100 ml 01/17/21 16:11 01/17/21 16:11 Iopamidol 755 Mg/Ml 500 Ml Multipack Bottle IVPUSH 01/17/21 16:12 100 ml ONETIME STA Administration - Re-Assessments/Exams Free Text/Narrative Re-Assessment/Exam: 01/17/21 18:00 Patient be admitted to the ED. Patient found to have a sugar greater than 500 patient given insulin for hyperglycemia. Patient will be admitted to the hospital for further care and MRI. Departure - Departure Time of Disposition: 18:00 Disposition: Home, Self-Care 01 Condition: Good Clinical Impression: Slurred speech - Discharge Information Referrals: Ming Delacruz MD [Primary Care Provider] - Forms: ED Department Discharge Critical Care Note - Critical Care Note Total Time (mins): 45 Comments: Critical Care Procedure Note Authorized and Performed by: Dr. Wheatley Total critical care time: Approximately Due to a high probability of clinically significant, life threatening deterioration, the patient required my highest level of preparedness to intervene emergently and I personally spent this critical care time directly and personally managing the patient. This critical care time included obtaining a history; examining the patient; pulse oximetry; ordering and review of studies; arranging urgent treatment with development of a management plan; evaluation of patient's response to treatment; frequent reassessment; and, discussions with other providers. This critical care time was performed to assess and manage the high probability of imminent, life-threatening deterioration that could result in multi-organ failure. It was exclusive of separately billable procedures and treating other patients and teaching time. Sepsis Event Note (ED) - Focused Exam Vital Signs: Vital Signs Temp Pulse Resp BP Pulse Ox 01/17/21 16:43 88 16 142/62 H 98 01/17/21 15:52 94 18 115/73 93 L 01/17/21 15:37 97.3 F 94 18 95 - My Orders Last 24 Hours: My Active Orders 01/17/21 15:45 DRUG SCREEN, URINE [URCHEM] Stat UA W/AJITH RFLX IF INDICATED [URIN] Stat Blood Culture x2 Reflex Set [OM.PC] Stat 01/17/21 16:15 CULTURE BLOOD [BC] Stat 01/17/21 16:25 BLOOD GAS VENOUS [BG] Stat CULTURE BLOOD [BC] Stat 01/17/21 16:31 OSMOLALITY - SERUM [REF] Stat OSMOLALITY - URINE Stat 01/17/21 17:20 REFLEX LACTIC ACID YES OR NO [CHEM] Routine 01/17/21 17:23 Sodium Chloride 0.9% [Normal Saline] 1,000 ml IV .Bolus 01/17/21 17:58 Dextrose 50% in Water 50 ml IVPUSH ASDIRECTED PRN Glucagon,Human Recombinant [GlucaGen] 1 mg IM ASDIRECTED PRN 01/17/21 17:59 Patient Status [ADT] Routine - Assessment/Plan Last 24 Hours: My Active Orders 01/17/21 15:45 DRUG SCREEN, URINE [URCHEM] Stat UA W/AJITH RFLX IF INDICATED [URIN] Stat Blood Culture x2 Reflex Set [OM.PC] Stat 01/17/21 16:15 CULTURE BLOOD [BC] Stat 01/17/21 16:25 BLOOD GAS VENOUS [BG] Stat CULTURE BLOOD [BC] Stat 01/17/21 16:31 OSMOLALITY - SERUM [REF] Stat OSMOLALITY - URINE Stat 01/17/21 17:20 REFLEX LACTIC ACID YES OR NO [CHEM] Routine 01/17/21 17:23 Sodium Chloride 0.9% [Normal Saline] 1,000 ml IV .Bolus 01/17/21 17:58 Dextrose 50% in Water 50 ml IVPUSH ASDIRECTED PRN Glucagon,Human Recombinant [GlucaGen] 1 mg IM ASDIRECTED PRN 01/17/21 17:59 Patient Status [ADT] Routine Plan: Patient is a 70-year-old female who presents today for possible slurred speech. Per started last night was difficult to obtain history from him. There is some slurred speech and the patient had a prescribed a steroid yesterday feels it is worse. Patient has no other neurological deficits on exam. We will perform CT scan of head and also do an infection work-up. Will obtain labs blood cultures UA.
[2021-01-17] MEDS ORDERED: Iopamidol 755 MG/ML 500 ML Multipack Bottle IVPUSH STA (16:11)
[2021-01-17 16:19] LABS: BLOOD UREA NITROGEN,BUN 33 mg/dL (7.0-18.0); CARBON DIOXIDE,CO2 22.3 mmol/L (21.0-32.0); CHLORIDE,CL 100 mmol/L (98-107); LIPASE 187 U/L (73-393); POTASSIUM,K 4.9 mmol/L (3.5-5.1); SODIUM,NA 135 mmol/L (136-145)
[2021-01-17 16:21] LABS: GLUCOSE RANDOM 571 mg/dL (74-106)
--- NOTE | 2021-01-17 16:31 | CT ---
INDICATION: Acute stroke COMPARISON: None TECHNIQUE: CT examination of the head was performed as axial sections without intravenous contrast. Images were obtained from the vertex of the skull through the skull base. Please note that all CT scans at this facility use dose modulation, iterative reconstruction, and/or weight-based dosing when appropriate to reduce radiation dose to as low as reasonably achievable. FINDINGS: There are mild diffuse involutional changes involving the cortical and cerebellar structures. The ventricles are dilated somewhat out of proportion to cortical atrophy. 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 This is clearly a chronic process. There is no mass effect, midline shift, hemorrhage, edema or visible acute infarction. There is no abnormal extra-axial fluid collection. The calvaria appear normal. Chronic appearing paranasal sinus mucosal inflammatory disease. IMPRESSION: 1. No indication of an acute stroke or other acute intracranial process. Chronic appearing changes as described in the body of the report. Please note that all CT scans at this facility use dose modulation, iterative reconstruction, and/or weight-based dosing when appropriate to reduce radiation dose to as low as reasonably achievable. Dictated by Kevin Polk MD @ 01/17/2021 4:29:03 PM (Electronically Signed)
--- NOTE | 2021-01-17 16:43 | CT ---
DATE: 01/17/2021. CLINICAL HISTORY: Acute neurological deficit. TECHNIQUE: Standard helical CT image acquisition through the neck was performed after intravenous contrast bolus enhancement. Multiplanar reconstructed images were performed and interpreted. COMPARISON: None available. FINDINGS: The origins of the great vessels from the aortic arch are patent. The origins of the right and left vertebral arteries are patent. There is diminutive caliber of the left common carotid artery with subsequent occlusion of the left internal carotid artery at its origin. There is reconstitution of a diminutive intracranial left internal carotid artery, likely by way of a widely patent anterior communicating artery. Endovascular stent is seen spanning from the mid to distal right common carotid artery through the proximal right internal carotid artery. No evidence of significant in-stent stenosis or occlusion. The more distal cervical segment of the right internal carotid artery is patent throughout. The cervical segments of the vertebral arteries are patent. No intracranial proximal large vessel occlusion or flow-limiting luminal stenosis. Emphysematous changes within the visualized upper lungs with biapical scarring. The thyroid gland is unremarkable. Degenerative changes of the cervical spine. IMPRESSION: 1. 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 2. Patent right carotid stent. 3. No intracranial proximal large vessel occlusion or flow-limiting luminal stenosis. Please note that all CT scans at this facility use dose modulation, iterative reconstruction, and/or weight-based dosing when appropriate to reduce radiation dose to as low as reasonably achievable. Dictated by José Manuel Belcher MD @ 01/17/2021 9:48:03 PM (Electronically Signed)
--- NOTE | 2021-01-17 16:51 | CT ---
DATE: 01/17/2021. CLINICAL HISTORY: Acute neurological deficit. TECHNIQUE: Standard helical CT image acquisition through the neck was performed after intravenous contrast bolus enhancement. Multiplanar reconstructed images were performed and interpreted. COMPARISON: None available. FINDINGS: The origins of the great vessels from the aortic arch are patent. The origins of the right and left vertebral arteries are patent. There is diminutive caliber of the left common carotid artery with subsequent occlusion of the left internal carotid artery at its origin. There is reconstitution of a diminutive intracranial left internal carotid artery, likely by way of a widely patent anterior communicating artery. Endovascular stent is seen spanning from the mid to distal right common carotid artery through the proximal right internal carotid artery. No evidence of significant in-stent stenosis or occlusion. The more distal cervical segment of the right internal carotid artery is patent throughout. The cervical segments of the vertebral arteries are patent. No intracranial proximal large vessel occlusion or flow-limiting luminal stenosis. Emphysematous changes within the visualized upper lungs with biapical scarring. The thyroid gland is unremarkable. Degenerative changes of the cervical spine. IMPRESSION: 1. 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 2. Patent right carotid stent. 3. No intracranial proximal large vessel occlusion or flow-limiting luminal stenosis. Please note that all CT scans at this facility use dose modulation, iterative reconstruction, and/or weight-based dosing when appropriate to reduce radiation dose to as low as reasonably achievable. Dictated by José Manuel Belcher MD @ 01/17/2021 9:48:56 PM (Electronically Signed)
[2021-01-17] MEDS ORDERED: Sodium Chloride 0.9% 1,000 ML IV ONE (17:23)
[2021-01-17] MEDS ORDERED: Insulin Regular, Human 100 Units/ML 10 ML Vial IVPUSH ONE (17:58)
[2021-01-17] MEDS ORDERED: Glucagon,Human Recombinant 1 MG Vial IM PRN ×2 (17:58→20:38)
[2021-01-17] MEDS ORDERED: 50% Dextrose in Water 50 ML Syringe IVPUSH PRN ×2 (17:58→20:38)
[2021-01-17 19:32] LABS: HEMOGLOBIN A1C 11.3 %
--- NOTE | 2021-01-17 20:42 | PCM.HP.2 ---
H&P History of Present Illness - General Date of Service: 01/17/21 Admit Problem/Dx: Admission Diagnosis/Problem Admission Diagnosis/Problem Slurred speech - History of Present Illness Initial Comments - Free Text/Narative: 70 yo female with pmh of DM, COPD, and chronic back pain who presents to the ED with concerns from family that she is having slurred speach. Patient denies any slurred speech dose reports dizziness. She is also suffureing from back pain and was seen in the ED lyesterday and prescribed gabapenting. Patient reports difficulty with ambulation due to the back pain. She does reports some shortness of breath and chest discomfort. - Related Data Allergies/Adverse Reactions: Allergies Allergy/AdvReac Type Severity Reaction Status Date / Time prednisone Allergy Hallucinati Verified 01/17/21 22:26 ons Home Medications: Home Meds OXcarbazepine [Oxcarbazepine] 150 mg PO BID 01/07/18 [History] Glimepiride [Amaryl] 2 mg PO QPM 05/31/18 [History] Glimepiride [Amaryl] 4 mg PO ACBREAKFAST 06/28/19 [History] Rosuvastatin Calcium 20 mg PO DAILY 06/28/19 [History] metFORMIN [Glucophage] 250 mg PO BIDMEALS 06/28/19 [History] Clopidogrel [Plavix] 75 mg PO DAILY 01/16/21 [History] Gabapentin [Neurontin] 300 mg PO BEDTIME #15 cap 01/16/21 [Rx] Past Medical History HEENT History: Reports: Cataract Cardiovascular History: Reports: Other (See Below) Other Cardiovascular History: BLE edema Respiratory History: Reports: COPD, SOB Gastrointestinal History: Reports: None Genitourinary History: Reports: None [employer]FF[employer] DIRECTOR History: Reports: None Musculoskeletal History: Reports: Osteoarthritis Neurological History: Reports: CVA, Seizure Other Neuro History: hx of 1 seizure in 2015- still taking medication Psychiatric History: Reports: None Endocrine/Metabolic History: Reports: Diabetes, Type II Hematologic History: Reports: None Immunologic History: Reports: None Oncologic (Cancer) History: Reports: None Dermatologic History: Reports: None - Infectious Disease History Infectious Disease History: Reports: Chicken Pox - Past Surgical History Head Surgeries/Procedures: Reports: None HEENT Surgical History: Reports: Cataract Surgery Cardiovascular Surgical History: Reports: Carotid Stents Respiratory Surgical History: Reports: None GI Surgical History: Reports: Colonoscopy Female Surgical History: Reports: None Endocrine Surgical History: Reports: None Neurological Surgical History: Reports: None Musculoskeletal Surgical History: Reports: None Oncologic Surgical History: Reports: None Dermatological Surgical History: Reports: None Social & Family History - Family History Family Medical History: No Pertinent Family History - Tobacco Use Tobacco Use Status *Q: Former Tobacco User Used Tobacco, but Quit: Yes Month/Year Tobacco Last Used: 03/2005 - Caffeine Use Caffeine Use: Reports: None - Recreational Drug Use Recreational Drug Use: No H&P Review of Systems - Review of Systems: Review Of Systems: Comprehensive ROS is negative, except as noted in HPI. Exam - Exam Exam: See Below - Vital Signs Vital Signs: Last Vital Signs Temp 36.3 C 01/17/21 15:37 Pulse 88 01/17/21 16:43 Resp 16 01/17/21 16:43 BP 142/62 H 01/17/21 16:43 Pulse Ox 98 01/17/21 16:43 - Exam General: Alert, Oriented HEENT: Mucosa Moist & Brook Lungs: Clear to Auscultation, Normal Respiratory Effort Cardiovascular: Regular Rate, Regular Rhythm GI/Abdominal Exam: Normal Bowel Sounds, Soft, Non-Tender Extremities: Non-Tender, No Pedal Edema Skin: Warm, Dry, Intact Neurological: Cranial Nerves Intact. No: Focal Deficit - Patient Data Lab Results Last 24 hrs: Laboratory Results - last 24 hr 01/17/21 01/17/21 01/17/21 Range/Units 15:35 15:35 15:35 WBC 7.65 (4.0-11.0) K/uL RBC 4.63 (4.30-5.90) M/uL Hgb 14.1 (12.0-16.0) g/dL Hct 42.4 (36.0-46.0) % MCV 91.6 (80.0-98.0) fL MCH 30.5 (27.0-32.0) pg MCHC 33.3 (31.0-37.0) g/dL RDW Std Deviation 44.7 (28.0-62.0) fl RDW Coeff of [place] 14 (11.0-15.0) % Plt Count 307 (150-400) K/uL MPV 9.70 (7.40-12.00) fL Neut % (Auto) 65.4 (48.0-80.0) % Lymph % (Auto) 24.6 (16.0-40.0) % [place] % (Auto) 8.5 (0.0-15.0) % Eos % (Auto) 1.0 (0.0-7.0) % Baso % (Auto) 0.5 (0.0-1.5) % Neut # (Auto) 5.0 (1.4-5.7) K/uL Lymph # (Auto) 1.9 (0.6-2.4) K/uL [place] # (Auto) 0.7 (0.0-0.8) K/uL Eos # (Auto) 0.1 (0.0-0.7) K/uL Baso # (Auto) 0.0 (0.0-0.1) K/uL Nucleated RBC % 0.0 /100WBC Nucleated RBCs # 0 K/uL Sodium 135 L (136-145) mmol/L Potassium 4.9 (3.5-5.1) mmol/L Chloride 100 (98-107) mmol/L Carbon Dioxide 22.3 (21.0-32.0) mmol/L BUN 33 H (7.0-18.0) mg/dL Creatinine 2.0 H (0.6-1.0) mg/dL Est Cr Clr Drug Dosing TNP Estimated GFR (MDRD) 24.6 ml/min Glucose 571 H* (74-106) mg/dL Hemoglobin A1c 11.3 H (4.5 - 6.2) % Lactic Acid (0.4-2.0) mmol/L Calcium 8.5 (8.5-10.1) mg/dL Phosphorus 4.9 H (2.6-4.7) mg/dL Magnesium 2.1 (1.8-2.4) mg/dL Total Bilirubin 0.5 (0.2-1.0) mg/dL AST 18 (15-37) IU/L ALT 16 (14-63) IU/L Alkaline Phosphatase 119 H (46-116) U/L Creatine Kinase 60 (26-308) U/L Troponin I < 0.050 (0.000-0.056) ng/mL Total Protein 6.7 (6.4-8.2) g/dL Albumin 2.7 L (3.4-5.0) g/dL Globulin 4.0 (2.6-4.0) g/dL Albumin/Globulin Ratio 0.7 L (0.9-1.6) Lipase 187 (73-393) U/L Urine Color Urine Appearance Urine pH (5.0-8.0) Ur Specific [place] (1.001-1.035) Urine Protein (NEGATIVE) mg/dL Urine Glucose (UA) (NEGATIVE) mg/dL Urine Ketones (NEGATIVE) mg/dL Urine Occult Blood (NEGATIVE) Urine Nitrite (NEGATIVE) Urine Bilirubin (NEGATIVE) Urine Urobilinogen (<2.0) EU/dL Ur Leukocyte Esterase (NEGATIVE) Urine Opiates Screen (NEGATIVE) Ur Oxycodone Screen (NEGATIVE) Urine Methadone Screen (NEGATIVE) Ur Barbiturates Screen (NEGATIVE) Ur Phencyclidine Scrn (NEGATIVE) Ur Amphetamine Screen (NEGATIVE) U Methamphetamines Scrn (NEGATIVE) U Benzodiazepines Scrn (NEGATIVE) U Cocaine Metab Screen (NEGATIVE) U Marijuana (THC) Screen (NEGATIVE) Ethyl Alcohol < 3.0 mg/dL 01/17/21 01/17/21 01/17/21 Range/Units 16:25 18:15 18:15 WBC (4.0-11.0) K/uL RBC (4.30-5.90) M/uL Hgb (12.0-16.0) g/dL Hct (36.0-46.0) % MCV (80.0-98.0) fL MCH (27.0-32.0) pg MCHC (31.0-37.0) g/dL RDW Std Deviation (28.0-62.0) fl RDW Coeff of [place] (11.0-15.0) % Plt Count (150-400) K/uL MPV (7.40-12.00) fL Neut % (Auto) (48.0-80.0) % Lymph % (Auto) (16.0-40.0) % [place] % (Auto) (0.0-15.0) % Eos % (Auto) (0.0-7.0) % Baso % (Auto) (0.0-1.5) % Neut # (Auto) (1.4-5.7) K/uL Lymph # (Auto) (0.6-2.4) K/uL [place] # (Auto) (0.0-0.8) K/uL Eos # (Auto) (0.0-0.7) K/uL Baso # (Auto) (0.0-0.1) K/uL Nucleated RBC % /100WBC Nucleated RBCs # K/uL Sodium (136-145) mmol/L Potassium (3.5-5.1) mmol/L Chloride (98-107) mmol/L Carbon Dioxide (21.0-32.0) mmol/L BUN (7.0-18.0) mg/dL Creatinine (0.6-1.0) mg/dL Est Cr Clr Drug Dosing Estimated GFR (MDRD) ml/min Glucose (74-106) mg/dL Hemoglobin A1c (4.5 - 6.2) % Lactic Acid 2.4 H* (0.4-2.0) mmol/L Calcium (8.5-10.1) mg/dL Phosphorus (2.6-4.7) mg/dL Magnesium (1.8-2.4) mg/dL Total Bilirubin (0.2-1.0) mg/dL AST (15-37) IU/L ALT (14-63) IU/L Alkaline Phosphatase (46-116) U/L Creatine Kinase (26-308) U/L Troponin I (0.000-0.056) ng/mL Total Protein (6.4-8.2) g/dL Albumin (3.4-5.0) g/dL Globulin (2.6-4.0) g/dL Albumin/Globulin Ratio (0.9-1.6) Lipase (73-393) U/L Urine Color YELLOW Urine Appearance CLEAR Urine pH 6.0 (5.0-8.0) Ur Specific [place] <= 1.005 (1.001-1.035) Urine Protein NEGATIVE (NEGATIVE) mg/dL Urine Glucose (UA) >=1000 (NEGATIVE) mg/dL Urine Ketones NEGATIVE (NEGATIVE) mg/dL Urine Occult Blood NEGATIVE (NEGATIVE) Urine Nitrite NEGATIVE (NEGATIVE) Urine Bilirubin NEGATIVE (NEGATIVE) Urine Urobilinogen 0.2 (<2.0) EU/dL Ur Leukocyte Esterase NEGATIVE (NEGATIVE) Urine Opiates Screen NEGATIVE (NEGATIVE) Ur Oxycodone Screen NEGATIVE (NEGATIVE) Urine Methadone Screen NEGATIVE (NEGATIVE) Ur Barbiturates Screen NEGATIVE (NEGATIVE) Ur Phencyclidine Scrn NEGATIVE (NEGATIVE) Ur Amphetamine Screen NEGATIVE (NEGATIVE) U Methamphetamines Scrn NEGATIVE (NEGATIVE) U Benzodiazepines Scrn NEGATIVE (NEGATIVE) U Cocaine Metab Screen NEGATIVE (NEGATIVE) U Marijuana (THC) Screen NEGATIVE (NEGATIVE) Ethyl Alcohol mg/dL Result Diagrams: 01/18/21 04:10 01/18/21 04:10 Deven Results Last 24 hrs: Microbiology 01/17/21 16:15 Anaerobic Blood Culture - Final Blood - Venous Sepsis Event Note - Evaluation Sepsis Screening Result: No Definite Risk - Focused Exam Vital Signs: Vital Signs Temp Pulse Resp BP Pulse Ox 01/17/21 16:43 88 16 142/62 H 98 01/17/21 15:52 94 18 115/73 93 L 01/17/21 15:37 36.3 C 94 18 95 Problem List Initiated/Reviewed/Updated: Yes Orders Last 24hrs: Active Orders 24 hr Category Date Time Status Patient Status [ADT] Routine ADT 01/17/21 17:59 Active Blood Glucose Check, Bedside [RC] Q4H Care 01/17/21 20:38 Ordered Oxygen Therapy [RC] PRN Care 01/17/21 20:36 Ordered Up ad [place] [RC] ASDIRECTED Care 01/17/21 20:36 Ordered VTE/DVT Education [RC] PER UNIT ROUTINE Care 01/17/21 20:36 Ordered Vital Signs [RC] Q4H Care 01/17/21 20:36 Ordered Consult to Diabetic Nurse Specialist [CONS] Routine Cons 01/17/21 20:36 Ordered PT Evaluation and Treatment [CONS] Routine Cons 01/17/21 20:36 Ordered [employer] Diet [DIET] Diet 01/17/21 Breakfast Ordered CXR [Chest 1V Frontal] [CR] Stat Exams 01/17/21 20:35 Ordered BLOOD GAS VENOUS [BG] Stat Lab 01/17/21 16:25 Ordered CBC WITH AUTO DIFF [HEME] AM Lab 01/18/21 05:11 Ordered COMPREHENSIVE METABOLIC PN,CMP [CHEM] AM Lab 01/18/21 05:11 Ordered CORONAVIRUS COVID-19 YAIR [MOLEC] Stat Lab 01/17/21 18:06 Ordered CULTURE BLOOD [BC] Stat Lab 01/17/21 16:15 Results CULTURE BLOOD [BC] Stat Lab 01/17/21 16:25 Received GLYCOSYLATED HEMOGLOBIN,HGBA1C [CHEM] Routine Lab 01/17/21 20:39 Ordered OSMOLALITY - SERUM [REF] Stat Lab 01/17/21 16:31 Ordered OSMOLALITY - URINE Stat Lab 01/17/21 18:15 Received REFLEX LACTIC ACID YES OR NO [CHEM] Routine Lab 01/17/21 17:20 Received TROPONIN I [CHEM] Q6H Lab 01/17/21 22:00 Ordered TROPONIN I [CHEM] Q6H Lab 01/18/21 04:00 Ordered Clopidogrel [Plavix] Med 01/18/21 09:00 Ordered 75 mg PO DAILY Dextrose 50% in Water Med 01/17/21 17:58 Active 50 ml IVPUSH ASDIRECTED PRN Dextrose 50% in Water Med 01/17/21 20:38 Ordered 50 ml IVPUSH ASDIRECTED PRN Enoxaparin [Lovenox] Med 01/17/21 20:45 Ordered 40 mg SUBCUT Q24H Gabapentin [Neurontin] Med 01/17/21 21:00 Ordered 300 mg PO BEDTIME Glucagon,Human Recombinant [GlucaGen] Med 01/17/21 17:58 Active 1 mg IM ASDIRECTED PRN Glucagon,Human Recombinant [GlucaGen] Med 01/17/21 20:38 Ordered 1 mg IM ASDIRECTED PRN Insulin Aspart [NovoLOG] Med 01/17/21 21:00 Ordered See Protocol SUBCUT Q4H OXcarbazepine Med 01/17/21 21:00 Ordered 150 mg PO BID Rosuvastatin Calcium Med 01/18/21 09:00 Ordered 20 mg PO DAILY Sodium Chloride 0.9% @ 125 MLS/HR (1000ml) Med 01/17/21 20:45 Ordered Sodium Chloride 0.9% [Normal Saline] 1,000 ml IV ASDIRECTED Blood Culture x2 Reflex Set [OM.PC] Stat Oth 01/17/21 15:45 Ordered Resuscitation Status Routine Resus Stat 01/17/21 20:36 Ordered Medication Orders Clopidogrel Bisulfate (Clopidogrel 75 Mg Tab) 75 mg PO DAILY ALEC Dextrose/Water (50% Dextrose In Water 50 Ml Syringe) 50 ml IVPUSH ASDIRECTED PRN PRN Reason: Hypoglycemia Dextrose/Water (50% Dextrose In Water 50 Ml Syringe) 50 ml IVPUSH ASDIRECTED PRN PRN Reason: Hypoglycemia Enoxaparin Sodium (Enoxaparin 40 Mg/0.4 Ml Syringe) 40 mg SUBCUT Q24H [facility] Gabapentin (Gabapentin 300 Mg Cap) 300 mg PO BEDTIME [facility]C Glucagon (Glucagon,Human Recombinant 1 Mg Vial) 1 mg IM ASDIRECTED PRN PRN Reason: Hypoglycemia Glucagon (Glucagon,Human Recombinant 1 Mg Vial) 1 mg IM ASDIRECTED PRN PRN Reason: Hypoglycemia Sodium Chloride (Normal Saline) 1,000 mls @ 125 mls/hr IV ASDIRECTED ALEC Stop: 01/18/21 04:44 Insulin Aspart (Insulin Aspart 100 Units/Ml 3 Ml Pen) 0 unit SUBCUT Q4H ALEC; Protocol Non-Formulary Medication (Rosuvastatin Calcium) 20 mg PO DAILY ALEC Non-Formulary Medication (Oxcarbazepine) 150 mg PO BID [facility]C Assessment/Plan Comment:: 70 yo female who presents with hyperglycemia, acute kidney injury likely due to dehydration. We will hydrate with IV fluids and recheck BMP in the morning. Will monitor glucose and give insulin as needed. Will trend troponin. Will consult PT.
[2021-01-17] MEDS ORDERED: Sodium Chloride 0.9% 1,000 ML IV SCH (20:45)
[2021-01-17] MEDS ORDERED: Non-Formulary Medication 1 Each (Oxcarbazepine 150 MG Tablet) PO SCH (21:00)
[2021-01-17] MEDS ORDERED: Insulin Regular, Human 100 Units/ML 10 ML Vial ONE (21:32)
--- NOTE | 2021-01-17 21:52 | CR ---
HISTORY: Hypoxia COMPARISON: Chest portable from 04/16/2019 and chest two views from 01/07/2018 FINDINGS: A portable erect AP view of the chest was obtained at 20 49 hours. Again seen are small left and right pericardial fat pads resulting and blurring of the left and right heart borders. The lungs remain clear. No focal or diffuse infiltrates are present. The heart remains normal in size. The mediastinum is normal in appearance. The osseous structures are normal in appearance for the patient`s age. IMPRESSION: No active disease seen in the chest. Dictated by Mukesh Celeste MD @ 01/17/2021 9:50:11 PM (Electronically Signed)
[2021-01-17] MEDS: Enoxaparin 40 MG/0.4 ML Syringe SUBCUT SCH (22:05)
[2021-01-17] MEDS: Gabapentin 300 MG Cap PO SCH (23:16)
[2021-01-17] MEDS: Insulin Aspart 100 Units/ML 3 ML Pen SUBCUT SCH (23:17)
[2021-01-18] MEDS: Insulin Aspart 100 Units/ML 3 ML Pen SUBCUT SCH ×5 (01:11→18:09)
[2021-01-18 04:44] LABS: POTASSIUM,K 4.1 mmol/L (3.5-5.1)
[2021-01-18] MEDS ORDERED: Non-Formulary Medication 1 Each (Rosuvastatin Calcium 20 MG Tablet) PO SCH (09:00)
[2021-01-18] MEDS: Clopidogrel 75 MG Tab PO SCH (09:30)
[2021-01-18] MEDS: Insulin Glargine,Human Rec. Analog 100 Units/ML 3 ML Pen SUBCUT SCH (10:07)
[2021-01-18] MEDS: OXcarbazepine 300 MG Tab PO SCH ×2 (10:25→22:00)
[2021-01-18] MEDS ORDERED: Gadobenate Dimeglumine 529 MG/ML 20 ML SDV IVPUSH STA (13:09)
--- NOTE | 2021-01-18 14:14 | PCM.PN ---
- General Info Date of Service: 01/18/21 - Review of Systems Systems Review Comment:: feeling better, strength has improved, dizziness is resolving - Patient Data Vitals - Most Recent: Last Vital Signs Temp 36.8 C 01/18/21 12:00 Pulse 67 01/18/21 12:00 Resp 16 01/18/21 12:00 BP 160/70 H 01/18/21 12:00 Pulse Ox 96 01/18/21 12:00 Weight - Most Recent: 76.5 kg I&O - Last 24 Hours: Intake & Output 01/17/21 01/18/21 01/18/21 22:59 06:59 14:59 Intake Total 481 Output Total 300 Balance 181 Lab Results Last 24 Hours: Laboratory Results - last 24 hr 01/17/21 01/17/21 01/17/21 Range/Units 15:35 15:35 15:35 WBC 7.65 (4.0-11.0) K/uL RBC 4.63 (4.30-5.90) M/uL Hgb 14.1 (12.0-16.0) g/dL Hct 42.4 (36.0-46.0) % MCV 91.6 (80.0-98.0) fL MCH 30.5 (27.0-32.0) pg MCHC 33.3 (31.0-37.0) g/dL RDW Std Deviation 44.7 (28.0-62.0) fl RDW Coeff of [place] 14 (11.0-15.0) % Plt Count 307 (150-400) K/uL MPV 9.70 (7.40-12.00) fL Neut % (Auto) 65.4 (48.0-80.0) % Lymph % (Auto) 24.6 (16.0-40.0) % Howell % (Auto) 8.5 (0.0-15.0) % Eos % (Auto) 1.0 (0.0-7.0) % Baso % (Auto) 0.5 (0.0-1.5) % Neut # (Auto) 5.0 (1.4-5.7) K/uL Lymph # (Auto) 1.9 (0.6-2.4) K/uL Howell # (Auto) 0.7 (0.0-0.8) K/uL Eos # (Auto) 0.1 (0.0-0.7) K/uL Baso # (Auto) 0.0 (0.0-0.1) K/uL Nucleated RBC % 0.0 /100WBC Nucleated RBCs # 0 K/uL Sodium 135 L (136-145) mmol/L Potassium 4.9 (3.5-5.1) mmol/L Chloride 100 (98-107) mmol/L Carbon Dioxide 22.3 (21.0-32.0) mmol/L BUN 33 H (7.0-18.0) mg/dL Creatinine 2.0 H (0.6-1.0) mg/dL Est Cr Clr Drug Dosing TNP Estimated GFR (MDRD) 24.6 ml/min Glucose 571 H* (74-106) mg/dL POC Glucose (70-99) mg/dL Hemoglobin A1c 11.3 H (4.5 - 6.2) % Lactic Acid (0.4-2.0) mmol/L Calcium 8.5 (8.5-10.1) mg/dL Phosphorus 4.9 H (2.6-4.7) mg/dL Magnesium 2.1 (1.8-2.4) mg/dL Total Bilirubin 0.5 (0.2-1.0) mg/dL AST 18 (15-37) IU/L ALT 16 (14-63) IU/L Alkaline Phosphatase 119 H (46-116) U/L Creatine Kinase 60 (26-308) U/L Troponin I < 0.050 (0.000-0.056) ng/mL Total Protein 6.7 (6.4-8.2) g/dL Albumin 2.7 L (3.4-5.0) g/dL Globulin 4.0 (2.6-4.0) g/dL Albumin/Globulin Ratio 0.7 L (0.9-1.6) Lipase 187 (73-393) U/L Urine Color Urine Appearance Urine pH (5.0-8.0) Ur Specific [place] (1.001-1.035) Urine Protein (NEGATIVE) mg/dL Urine Glucose (UA) (NEGATIVE) mg/dL Urine Ketones (NEGATIVE) mg/dL Urine Occult Blood (NEGATIVE) Urine Nitrite (NEGATIVE) Urine Bilirubin (NEGATIVE) Urine Urobilinogen (<2.0) EU/dL Ur Leukocyte Esterase (NEGATIVE) Urine Opiates Screen (NEGATIVE) Ur Oxycodone Screen (NEGATIVE) Urine Methadone Screen (NEGATIVE) Ur Barbiturates Screen (NEGATIVE) Ur Phencyclidine Scrn (NEGATIVE) Ur Amphetamine Screen (NEGATIVE) U Methamphetamines Scrn (NEGATIVE) U Benzodiazepines Scrn (NEGATIVE) U Cocaine Metab Screen (NEGATIVE) U Marijuana (THC) Screen (NEGATIVE) Ethyl Alcohol < 3.0 mg/dL SARS-CoV-2 RNA (YAIR) (NEGATIVE) 01/17/21 01/17/21 01/17/21 Range/Units 16:25 18:15 18:15 WBC (4.0-11.0) K/uL RBC (4.30-5.90) M/uL Hgb (12.0-16.0) g/dL Hct (36.0-46.0) % MCV (80.0-98.0) fL MCH (27.0-32.0) pg MCHC (31.0-37.0) g/dL RDW Std Deviation (28.0-62.0) fl RDW Coeff of [place] (11.0-15.0) % Plt Count (150-400) K/uL MPV (7.40-12.00) fL Neut % (Auto) (48.0-80.0) % Lymph % (Auto) (16.0-40.0) % Howell % (Auto) (0.0-15.0) % Eos % (Auto) (0.0-7.0) % Baso % (Auto) (0.0-1.5) % Neut # (Auto) (1.4-5.7) K/uL Lymph # (Auto) (0.6-2.4) K/uL Howell # (Auto) (0.0-0.8) K/uL Eos # (Auto) (0.0-0.7) K/uL Baso # (Auto) (0.0-0.1) K/uL Nucleated RBC % /100WBC Nucleated RBCs # K/uL Sodium (136-145) mmol/L Potassium (3.5-5.1) mmol/L Chloride (98-107) mmol/L Carbon Dioxide (21.0-32.0) mmol/L BUN (7.0-18.0) mg/dL Creatinine (0.6-1.0) mg/dL Est Cr Clr Drug Dosing Estimated GFR (MDRD) ml/min Glucose (74-106) mg/dL POC Glucose (70-99) mg/dL Hemoglobin A1c (4.5 - 6.2) % Lactic Acid 2.4 H* (0.4-2.0) mmol/L Calcium (8.5-10.1) mg/dL Phosphorus (2.6-4.7) mg/dL Magnesium (1.8-2.4) mg/dL Total Bilirubin (0.2-1.0) mg/dL AST (15-37) IU/L ALT (14-63) IU/L Alkaline Phosphatase (46-116) U/L Creatine Kinase (26-308) U/L Troponin I (0.000-0.056) ng/mL Total Protein (6.4-8.2) g/dL Albumin (3.4-5.0) g/dL Globulin (2.6-4.0) g/dL Albumin/Globulin Ratio (0.9-1.6) Lipase (73-393) U/L Urine Color YELLOW Urine Appearance CLEAR Urine pH 6.0 (5.0-8.0) Ur Specific [place] <= 1.005 (1.001-1.035) Urine Protein NEGATIVE (NEGATIVE) mg/dL Urine Glucose (UA) >=1000 (NEGATIVE) mg/dL Urine Ketones NEGATIVE (NEGATIVE) mg/dL Urine Occult Blood NEGATIVE (NEGATIVE) Urine Nitrite NEGATIVE (NEGATIVE) Urine Bilirubin NEGATIVE (NEGATIVE) Urine Urobilinogen 0.2 (<2.0) EU/dL Ur Leukocyte Esterase NEGATIVE (NEGATIVE) Urine Opiates Screen NEGATIVE (NEGATIVE) Ur Oxycodone Screen NEGATIVE (NEGATIVE) Urine Methadone Screen NEGATIVE (NEGATIVE) Ur Barbiturates Screen NEGATIVE (NEGATIVE) Ur Phencyclidine Scrn NEGATIVE (NEGATIVE) Ur Amphetamine Screen NEGATIVE (NEGATIVE) U Methamphetamines Scrn NEGATIVE (NEGATIVE) U Benzodiazepines Scrn NEGATIVE (NEGATIVE) U Cocaine Metab Screen NEGATIVE (NEGATIVE) U Marijuana (THC) Screen NEGATIVE (NEGATIVE) Ethyl Alcohol mg/dL SARS-CoV-2 RNA (YAIR) (NEGATIVE) 01/17/21 01/17/21 01/17/21 Range/Units 20:30 21:41 21:55 WBC (4.0-11.0) K/uL RBC (4.30-5.90) M/uL Hgb (12.0-16.0) g/dL Hct (36.0-46.0) % MCV (80.0-98.0) fL MCH (27.0-32.0) pg MCHC (31.0-37.0) g/dL RDW Std Deviation (28.0-62.0) fl RDW Coeff of [place] (11.0-15.0) % Plt Count (150-400) K/uL MPV (7.40-12.00) fL Neut % (Auto) (48.0-80.0) % Lymph % (Auto) (16.0-40.0) % Howell % (Auto) (0.0-15.0) % Eos % (Auto) (0.0-7.0) % Baso % (Auto) (0.0-1.5) % Neut # (Auto) (1.4-5.7) K/uL Lymph # (Auto) (0.6-2.4) K/uL Howell # (Auto) (0.0-0.8) K/uL Eos # (Auto) (0.0-0.7) K/uL Baso # (Auto) (0.0-0.1) K/uL Nucleated RBC % /100WBC Nucleated RBCs # K/uL Sodium (136-145) mmol/L Potassium (3.5-5.1) mmol/L Chloride (98-107) mmol/L Carbon Dioxide (21.0-32.0) mmol/L BUN (7.0-18.0) mg/dL Creatinine (0.6-1.0) mg/dL Est Cr Clr Drug Dosing Estimated GFR (MDRD) ml/min Glucose (74-106) mg/dL POC Glucose 373 H (70-99) mg/dL Hemoglobin A1c (4.5 - 6.2) % Lactic Acid (0.4-2.0) mmol/L Calcium (8.5-10.1) mg/dL Phosphorus (2.6-4.7) mg/dL Magnesium (1.8-2.4) mg/dL Total Bilirubin (0.2-1.0) mg/dL AST (15-37) IU/L ALT (14-63) IU/L Alkaline Phosphatase (46-116) U/L Creatine Kinase (26-308) U/L Troponin I < 0.050 (0.000-0.056) ng/mL Total Protein (6.4-8.2) g/dL Albumin (3.4-5.0) g/dL Globulin (2.6-4.0) g/dL Albumin/Globulin Ratio (0.9-1.6) Lipase (73-393) U/L Urine Color Urine Appearance Urine pH (5.0-8.0) Ur Specific [place] (1.001-1.035) Urine Protein (NEGATIVE) mg/dL Urine Glucose (UA) (NEGATIVE) mg/dL Urine Ketones (NEGATIVE) mg/dL Urine Occult Blood (NEGATIVE) Urine Nitrite (NEGATIVE) Urine Bilirubin (NEGATIVE) Urine Urobilinogen (<2.0) EU/dL Ur Leukocyte Esterase (NEGATIVE) Urine Opiates Screen (NEGATIVE) Ur Oxycodone Screen (NEGATIVE) Urine Methadone Screen (NEGATIVE) Ur Barbiturates Screen (NEGATIVE) Ur Phencyclidine Scrn (NEGATIVE) Ur Amphetamine Screen (NEGATIVE) U Methamphetamines Scrn (NEGATIVE) U Benzodiazepines Scrn (NEGATIVE) U Cocaine Metab Screen (NEGATIVE) U Marijuana (THC) Screen (NEGATIVE) Ethyl Alcohol mg/dL SARS-CoV-2 RNA (YAIR) NEGATIVE (NEGATIVE) 01/17/21 01/17/21 01/18/21 Range/Units 21:55 22:27 01:02 WBC (4.0-11.0) K/uL RBC (4.30-5.90) M/uL Hgb (12.0-16.0) g/dL Hct (36.0-46.0) % MCV (80.0-98.0) fL MCH (27.0-32.0) pg MCHC (31.0-37.0) g/dL RDW Std Deviation (28.0-62.0) fl RDW Coeff of [place] (11.0-15.0) % Plt Count (150-400) K/uL MPV (7.40-12.00) fL Neut % (Auto) (48.0-80.0) % Lymph % (Auto) (16.0-40.0) % Howell % (Auto) (0.0-15.0) % Eos % (Auto) (0.0-7.0) % Baso % (Auto) (0.0-1.5) % Neut # (Auto) (1.4-5.7) K/uL Lymph # (Auto) (0.6-2.4) K/uL Howell # (Auto) (0.0-0.8) K/uL Eos # (Auto) (0.0-0.7) K/uL Baso # (Auto) (0.0-0.1) K/uL Nucleated RBC % /100WBC Nucleated RBCs # K/uL Sodium (136-145) mmol/L Potassium (3.5-5.1) mmol/L Chloride (98-107) mmol/L Carbon Dioxide (21.0-32.0) mmol/L BUN (7.0-18.0) mg/dL Creatinine (0.6-1.0) mg/dL Est Cr Clr Drug Dosing Estimated GFR (MDRD) ml/min Glucose (74-106) mg/dL POC Glucose 319 H 278 H (70-99) mg/dL Hemoglobin A1c (4.5 - 6.2) % Lactic Acid 0.7 (0.4-2.0) mmol/L Calcium (8.5-10.1) mg/dL Phosphorus (2.6-4.7) mg/dL Magnesium (1.8-2.4) mg/dL Total Bilirubin (0.2-1.0) mg/dL AST (15-37) IU/L ALT (14-63) IU/L Alkaline Phosphatase (46-116) U/L Creatine Kinase (26-308) U/L Troponin I (0.000-0.056) ng/mL Total Protein (6.4-8.2) g/dL Albumin (3.4-5.0) g/dL Globulin (2.6-4.0) g/dL Albumin/Globulin Ratio (0.9-1.6) Lipase (73-393) U/L Urine Color Urine Appearance Urine pH (5.0-8.0) Ur Specific [place] (1.001-1.035) Urine Protein (NEGATIVE) mg/dL Urine Glucose (UA) (NEGATIVE) mg/dL Urine Ketones (NEGATIVE) mg/dL Urine Occult Blood (NEGATIVE) Urine Nitrite (NEGATIVE) Urine Bilirubin (NEGATIVE) Urine Urobilinogen (<2.0) EU/dL Ur Leukocyte Esterase (NEGATIVE) Urine Opiates Screen (NEGATIVE) Ur Oxycodone Screen (NEGATIVE) Urine Methadone Screen (NEGATIVE) Ur Barbiturates Screen (NEGATIVE) Ur Phencyclidine Scrn (NEGATIVE) Ur Amphetamine Screen (NEGATIVE) U Methamphetamines Scrn (NEGATIVE) U Benzodiazepines Scrn (NEGATIVE) U Cocaine Metab Screen (NEGATIVE) U Marijuana (THC) Screen (NEGATIVE) Ethyl Alcohol mg/dL SARS-CoV-2 RNA (YAIR) (NEGATIVE) 01/18/21 01/18/21 01/18/21 Range/Units 04:10 04:10 04:10 WBC 7.64 (4.0-11.0) K/uL RBC 4.03 L (4.30-5.90) M/uL Hgb 12.1 (12.0-16.0) g/dL Hct 36.7 (36.0-46.0) % MCV 91.1 (80.0-98.0) fL MCH 30.0 (27.0-32.0) pg MCHC 33.0 (31.0-37.0) g/dL RDW Std Deviation 45.1 (28.0-62.0) fl RDW Coeff of [place] 14 (11.0-15.0) % Plt Count 239 (150-400) K/uL MPV 9.20 (7.40-12.00) fL Neut % (Auto) 55.0 (48.0-80.0) % Lymph % (Auto) 35.2 (16.0-40.0) % Howell % (Auto) 8.8 (0.0-15.0) % Eos % (Auto) 0.7 (0.0-7.0) % Baso % (Auto) 0.3 (0.0-1.5) % Neut # (Auto) 4.2 (1.4-5.7) K/uL Lymph # (Auto) 2.7 H (0.6-2.4) K/uL Howell # (Auto) 0.7 (0.0-0.8) K/uL Eos # (Auto) 0.1 (0.0-0.7) K/uL Baso # (Auto) 0.0 (0.0-0.1) K/uL Nucleated RBC % 0.0 /100WBC Nucleated RBCs # 0 K/uL Sodium 140 (136-145) mmol/L Potassium 4.1 (3.5-5.1) mmol/L Chloride 108 H (98-107) mmol/L Carbon Dioxide 24.0 (21.0-32.0) mmol/L BUN 24 H (7.0-18.0) mg/dL Creatinine 1.2 H (0.6-1.0) mg/dL Est Cr Clr Drug Dosing 40.84 Estimated GFR (MDRD) 44.4 ml/min Glucose 237 H (74-106) mg/dL POC Glucose (70-99) mg/dL Hemoglobin A1c (4.5 - 6.2) % Lactic Acid (0.4-2.0) mmol/L Calcium 8.3 L (8.5-10.1) mg/dL Phosphorus (2.6-4.7) mg/dL Magnesium (1.8-2.4) mg/dL Total Bilirubin 0.3 (0.2-1.0) mg/dL AST 12 L (15-37) IU/L ALT 15 (14-63) IU/L Alkaline Phosphatase 96 (46-116) U/L Creatine Kinase (26-308) U/L Troponin I < 0.050 (0.000-0.056) ng/mL Total Protein 5.4 L (6.4-8.2) g/dL Albumin 2.4 L (3.4-5.0) g/dL Globulin 3.0 (2.6-4.0) g/dL Albumin/Globulin Ratio 0.8 L (0.9-1.6) Lipase (73-393) U/L Urine Color Urine Appearance Urine pH (5.0-8.0) Ur Specific [place] (1.001-1.035) Urine Protein (NEGATIVE) mg/dL Urine Glucose (UA) (NEGATIVE) mg/dL Urine Ketones (NEGATIVE) mg/dL Urine Occult Blood (NEGATIVE) Urine Nitrite (NEGATIVE) Urine Bilirubin (NEGATIVE) Urine Urobilinogen (<2.0) EU/dL Ur Leukocyte Esterase (NEGATIVE) Urine Opiates Screen (NEGATIVE) Ur Oxycodone Screen (NEGATIVE) Urine Methadone Screen (NEGATIVE) Ur Barbiturates Screen (NEGATIVE) Ur Phencyclidine Scrn (NEGATIVE) Ur Amphetamine Screen (NEGATIVE) U Methamphetamines Scrn (NEGATIVE) U Benzodiazepines Scrn (NEGATIVE) U Cocaine Metab Screen (NEGATIVE) U Marijuana (THC) Screen (NEGATIVE) Ethyl Alcohol mg/dL SARS-CoV-2 RNA (YAIR) (NEGATIVE) 01/18/21 01/18/21 01/18/21 Range/Units 04:51 09:53 12:45 WBC (4.0-11.0) K/uL RBC (4.30-5.90) M/uL Hgb (12.0-16.0) g/dL Hct (36.0-46.0) % MCV (80.0-98.0) fL MCH (27.0-32.0) pg MCHC (31.0-37.0) g/dL RDW Std Deviation (28.0-62.0) fl RDW Coeff of [place] (11.0-15.0) % Plt Count (150-400) K/uL MPV (7.40-12.00) fL Neut % (Auto) (48.0-80.0) % Lymph % (Auto) (16.0-40.0) % Howell % (Auto) (0.0-15.0) % Eos % (Auto) (0.0-7.0) % Baso % (Auto) (0.0-1.5) % Neut # (Auto) (1.4-5.7) K/uL Lymph # (Auto) (0.6-2.4) K/uL [place]ell # (Auto) (0.0-0.8) K/uL Eos # (Auto) (0.0-0.7) K/uL Baso # (Auto) (0.0-0.1) K/uL Nucleated RBC % /100WBC Nucleated RBCs # K/uL Sodium (136-145) mmol/L Potassium (3.5-5.1) mmol/L Chloride (98-107) mmol/L Carbon Dioxide (21.0-32.0) mmol/L BUN (7.0-18.0) mg/dL Creatinine (0.6-1.0) mg/dL Est Cr Clr Drug Dosing Estimated GFR (MDRD) ml/min Glucose (74-106) mg/dL POC Glucose 228 H 198 H 219 H (70-99) mg/dL Hemoglobin A1c (4.5 - 6.2) % Lactic Acid (0.4-2.0) mmol/L Calcium (8.5-10.1) mg/dL Phosphorus (2.6-4.7) mg/dL Magnesium (1.8-2.4) mg/dL Total Bilirubin (0.2-1.0) mg/dL AST (15-37) IU/L ALT (14-63) IU/L Alkaline Phosphatase (46-116) U/L Creatine Kinase (26-308) U/L Troponin I (0.000-0.056) ng/mL Total Protein (6.4-8.2) g/dL Albumin (3.4-5.0) g/dL Globulin (2.6-4.0) g/dL Albumin/Globulin Ratio (0.9-1.6) Lipase (73-393) U/L Urine Color Urine Appearance Urine pH (5.0-8.0) Ur Specific [place] (1.001-1.035) Urine Protein (NEGATIVE) mg/dL Urine Glucose (UA) (NEGATIVE) mg/dL Urine Ketones (NEGATIVE) mg/dL Urine Occult Blood (NEGATIVE) Urine Nitrite (NEGATIVE) Urine Bilirubin (NEGATIVE) Urine Urobilinogen (<2.0) EU/dL Ur Leukocyte Esterase (NEGATIVE) Urine Opiates Screen (NEGATIVE) Ur Oxycodone Screen (NEGATIVE) Urine Methadone Screen (NEGATIVE) Ur Barbiturates Screen (NEGATIVE) Ur Phencyclidine Scrn (NEGATIVE) Ur Amphetamine Screen (NEGATIVE) U Methamphetamines Scrn (NEGATIVE) U Benzodiazepines Scrn (NEGATIVE) U Cocaine Metab Screen (NEGATIVE) U Marijuana (THC) Screen (NEGATIVE) Ethyl Alcohol mg/dL SARS-CoV-2 RNA (YAIR) (NEGATIVE) Deven Results Last 24 Hours: Microbiology 01/17/21 16:15 Anaerobic Blood Culture - Final Blood - Venous Med Orders - Current: Current Medications Clopidogrel Bisulfate (Clopidogrel 75 Mg Tab) 75 mg PO DAILY ALEC Last Admin: 01/18/21 09:30 Dose: 75 mg Documented by: Dextrose/Water (50% Dextrose In Water 50 Ml Syringe) 50 ml IVPUSH ASDIRECTED PRN PRN Reason: Hypoglycemia Dextrose/Water (50% Dextrose In Water 50 Ml Syringe) 50 ml IVPUSH ASDIRECTED PRN PRN Reason: Hypoglycemia Enoxaparin Sodium (Enoxaparin 40 Mg/0.4 Ml Syringe) 40 mg SUBCUT Q24H ALEC Last Admin: 01/17/21 22:05 Dose: 40 mg Documented by: Gabapentin (Gabapentin 300 Mg Cap) 300 mg PO BEDTIME ALEC Last Admin: 01/17/21 23:16 Dose: 300 mg Documented by: Glucagon (Glucagon,Human Recombinant 1 Mg Vial) 1 mg IM ASDIRECTED PRN PRN Reason: Hypoglycemia Glucagon (Glucagon,Human Recombinant 1 Mg Vial) 1 mg IM ASDIRECTED PRN PRN Reason: Hypoglycemia Insulin Glargine (Insulin Glargine,Human Rec. Analog 100 Units/Ml 3 Ml Pen) 5 units SUBCUT DAILY [facility] Last Admin: 01/18/21 10:07 Dose: 5 units Documented by: Oxcarbazepine (Oxcarbazepine 300 Mg Tab) 150 mg PO BID ALEC Last Admin: 01/18/21 10:25 Dose: 150 mg Documented by: Rosuvastatin Calcium (Rosuvastatin 10 Mg Tab) 20 mg PO BEDTIME ALEC Discontinued Medications Gadobenate Dimeglumine (Gadobenate Dimeglumine 529 Mg/Ml 20 Ml Sdv) 20 ml IVPUSH ONETIME STA Stop: 01/18/21 13:10 Last Admin: 01/18/21 13:10 Dose: 14 ml Documented by: Sodium Chloride (Normal Saline) 1,000 mls @ 1,000 mls/hr IV .Bolus ONE Stop: 01/17/21 18:22 Last Admin: 01/17/21 17:48 Dose: 1,000 mls/hr Documented by: Sodium Chloride (Normal Saline) 1,000 mls @ 125 mls/hr IV ASDIRECTED ALEC Stop: 01/18/21 04:44 Last Admin: 01/18/21 02:26 Dose: 125 mls/hr Documented by: Insulin Aspart (Insulin Aspart 100 Units/Ml 3 Ml Pen) 0 unit SUBCUT Q4H ALEC; Protocol Last Admin: 01/18/21 10:06 Dose: 1 unit Documented by: Insulin Human Regular (Insulin Regular, Human 100 Units/Ml 10 Ml Vial) 10 unit IVPUSH ONETIME ONE; Protocol Stop: 01/17/21 17:59 Last Admin: 01/17/21 21:37 Dose: 10 units Documented by: Insulin Human Regular (Insulin Regular, Human 100 Units/Ml 10 Ml Vial) Confirm Administered Dose 1,000 unit .ROUTE .STK-MED ONE Stop: 01/17/21 21:33 Last Admin: 01/17/21 23:07 Dose: Not Given Documented by: Iopamidol (Iopamidol 755 Mg/Ml 500 Ml Multipack Bottle) 100 ml IVPUSH ONETIME STA Stop: 01/17/21 16:12 Last Admin: 01/17/21 16:11 Dose: 100 ml Documented by: Non-Formulary Medication (Rosuvastatin Calcium) 20 mg PO DAILY ALEC Non-Formulary Medication (Oxcarbazepine) 150 mg PO BID ALEC Last Admin: 01/17/21 23:20 Dose: Not Given Documented by: - Exam General: Alert, Oriented Neck: Supple Lungs: Clear to Auscultation, Normal Respiratory Effort Cardiovascular: Regular Rate, Regular Rhythm GI/Abdominal Exam: Normal Bowel Sounds, Soft, Non-Tender Extremities: Non-Tender, No Pedal Edema Skin: Warm, Dry, Intact Neurological: No New Focal Deficit, Normal Speech, Strength Equal Bilateral - Patient Data Lab Results Last 24 hrs: Laboratory Results - last 24 hr 01/17/21 01/17/21 01/17/21 Range/Units 15:35 15:35 15:35 WBC 7.65 (4.0-11.0) K/uL RBC 4.63 (4.30-5.90) M/uL Hgb 14.1 (12.0-16.0) g/dL Hct 42.4 (36.0-46.0) % MCV 91.6 (80.0-98.0) fL MCH 30.5 (27.0-32.0) pg MCHC 33.3 (31.0-37.0) g/dL RDW Std Deviation 44.7 (28.0-62.0) fl RDW Coeff of [place] 14 (11.0-15.0) % Plt Count 307 (150-400) K/uL MPV 9.70 (7.40-12.00) fL Neut % (Auto) 65.4 (48.0-80.0) % Lymph % (Auto) 24.6 (16.0-40.0) % [place]ell % (Auto) 8.5 (0.0-15.0) % Eos % (Auto) 1.0 (0.0-7.0) % Baso % (Auto) 0.5 (0.0-1.5) % Neut # (Auto) 5.0 (1.4-5.7) K/uL Lymph # (Auto) 1.9 (0.6-2.4) K/uL [place]ell # (Auto) 0.7 (0.0-0.8) K/uL Eos # (Auto) 0.1 (0.0-0.7) K/uL Baso # (Auto) 0.0 (0.0-0.1) K/uL Nucleated RBC % 0.0 /100WBC Nucleated RBCs # 0 K/uL Sodium 135 L (136-145) mmol/L Potassium 4.9 (3.5-5.1) mmol/L Chloride 100 (98-107) mmol/L Carbon Dioxide 22.3 (21.0-32.0) mmol/L BUN 33 H (7.0-18.0) mg/dL Creatinine 2.0 H (0.6-1.0) mg/dL Est Cr Clr Drug Dosing TNP Estimated GFR (MDRD) 24.6 ml/min Glucose 571 H* (74-106) mg/dL POC Glucose (70-99) mg/dL Hemoglobin A1c 11.3 H (4.5 - 6.2) % Lactic Acid (0.4-2.0) mmol/L Calcium 8.5 (8.5-10.1) mg/dL Phosphorus 4.9 H (2.6-4.7) mg/dL Magnesium 2.1 (1.8-2.4) mg/dL Total Bilirubin 0.5 (0.2-1.0) mg/dL AST 18 (15-37) IU/L ALT 16 (14-63) IU/L Alkaline Phosphatase 119 H (46-116) U/L Creatine Kinase 60 (26-308) U/L Troponin I < 0.050 (0.000-0.056) ng/mL Total Protein 6.7 (6.4-8.2) g/dL Albumin 2.7 L (3.4-5.0) g/dL Globulin 4.0 (2.6-4.0) g/dL Albumin/Globulin Ratio 0.7 L (0.9-1.6) Lipase 187 (73-393) U/L Urine Color Urine Appearance Urine pH (5.0-8.0) Ur Specific [place] (1.001-1.035) Urine Protein (NEGATIVE) mg/dL Urine Glucose (UA) (NEGATIVE) mg/dL Urine Ketones (NEGATIVE) mg/dL Urine Occult Blood (NEGATIVE) Urine Nitrite (NEGATIVE) Urine Bilirubin (NEGATIVE) Urine Urobilinogen (<2.0) EU/dL Ur Leukocyte Esterase (NEGATIVE) Urine Opiates Screen (NEGATIVE) Ur Oxycodone Screen (NEGATIVE) Urine Methadone Screen (NEGATIVE) Ur Barbiturates Screen (NEGATIVE) Ur Phencyclidine Scrn (NEGATIVE) Ur Amphetamine Screen (NEGATIVE) U Methamphetamines Scrn (NEGATIVE) U Benzodiazepines Scrn (NEGATIVE) U Cocaine Metab Screen (NEGATIVE) U Marijuana (THC) Screen (NEGATIVE) Ethyl Alcohol < 3.0 mg/dL SARS-CoV-2 RNA (YAIR) (NEGATIVE) 01/17/21 01/17/21 01/17/21 Range/Units 16:25 18:15 18:15 WBC (4.0-11.0) K/uL RBC (4.30-5.90) M/uL Hgb (12.0-16.0) g/dL Hct (36.0-46.0) % MCV (80.0-98.0) fL MCH (27.0-32.0) pg MCHC (31.0-37.0) g/dL RDW Std Deviation (28.0-62.0) fl RDW Coeff of [place] (11.0-15.0) % Plt Count (150-400) K/uL MPV (7.40-12.00) fL Neut % (Auto) (48.0-80.0) % Lymph % (Auto) (16.0-40.0) % Howell % (Auto) (0.0-15.0) % Eos % (Auto) (0.0-7.0) % Baso % (Auto) (0.0-1.5) % Neut # (Auto) (1.4-5.7) K/uL Lymph # (Auto) (0.6-2.4) K/uL Howell # (Auto) (0.0-0.8) K/uL Eos # (Auto) (0.0-0.7) K/uL Baso # (Auto) (0.0-0.1) K/uL Nucleated RBC % /100WBC Nucleated RBCs # K/uL Sodium (136-145) mmol/L Potassium (3.5-5.1) mmol/L Chloride (98-107) mmol/L Carbon Dioxide (21.0-32.0) mmol/L BUN (7.0-18.0) mg/dL Creatinine (0.6-1.0) mg/dL Est Cr Clr Drug Dosing Estimated GFR (MDRD) ml/min Glucose (74-106) mg/dL POC Glucose (70-99) mg/dL Hemoglobin A1c (4.5 - 6.2) % Lactic Acid 2.4 H* (0.4-2.0) mmol/L Calcium (8.5-10.1) mg/dL Phosphorus (2.6-4.7) mg/dL Magnesium (1.8-2.4) mg/dL Total Bilirubin (0.2-1.0) mg/dL AST (15-37) IU/L ALT (14-63) IU/L Alkaline Phosphatase (46-116) U/L Creatine Kinase (26-308) U/L Troponin I (0.000-0.056) ng/mL Total Protein (6.4-8.2) g/dL Albumin (3.4-5.0) g/dL Globulin (2.6-4.0) g/dL Albumin/Globulin Ratio (0.9-1.6) Lipase (73-393) U/L Urine Color YELLOW Urine Appearance CLEAR Urine pH 6.0 (5.0-8.0) Ur Specific [place] <= 1.005 (1.001-1.035) Urine Protein NEGATIVE (NEGATIVE) mg/dL Urine Glucose (UA) >=1000 (NEGATIVE) mg/dL Urine Ketones NEGATIVE (NEGATIVE) mg/dL Urine Occult Blood NEGATIVE (NEGATIVE) Urine Nitrite NEGATIVE (NEGATIVE) Urine Bilirubin NEGATIVE (NEGATIVE) Urine Urobilinogen 0.2 (<2.0) EU/dL Ur Leukocyte Esterase NEGATIVE (NEGATIVE) Urine Opiates Screen NEGATIVE (NEGATIVE) Ur Oxycodone Screen NEGATIVE (NEGATIVE) Urine Methadone Screen NEGATIVE (NEGATIVE) Ur Barbiturates Screen NEGATIVE (NEGATIVE) Ur Phencyclidine Scrn NEGATIVE (NEGATIVE) Ur Amphetamine Screen NEGATIVE (NEGATIVE) U Methamphetamines Scrn NEGATIVE (NEGATIVE) U Benzodiazepines Scrn NEGATIVE (NEGATIVE) U Cocaine Metab Screen NEGATIVE (NEGATIVE) U Marijuana (THC) Screen NEGATIVE (NEGATIVE) Ethyl Alcohol mg/dL SARS-CoV-2 RNA (YAIR) (NEGATIVE) 01/17/21 01/17/21 01/17/21 Range/Units 20:30 21:41 21:55 WBC (4.0-11.0) K/uL RBC (4.30-5.90) M/uL Hgb (12.0-16.0) g/dL Hct (36.0-46.0) % MCV (80.0-98.0) fL MCH (27.0-32.0) pg MCHC (31.0-37.0) g/dL RDW Std Deviation (28.0-62.0) fl RDW Coeff of [place] (11.0-15.0) % Plt Count (150-400) K/uL MPV (7.40-12.00) fL Neut % (Auto) (48.0-80.0) % Lymph % (Auto) (16.0-40.0) % Howell % (Auto) (0.0-15.0) % Eos % (Auto) (0.0-7.0) % Baso % (Auto) (0.0-1.5) % Neut # (Auto) (1.4-5.7) K/uL Lymph # (Auto) (0.6-2.4) K/uL Howell # (Auto) (0.0-0.8) K/uL Eos # (Auto) (0.0-0.7) K/uL Baso # (Auto) (0.0-0.1) K/uL Nucleated RBC % /100WBC Nucleated RBCs # K/uL Sodium (136-145) mmol/L Potassium (3.5-5.1) mmol/L Chloride (98-107) mmol/L Carbon Dioxide (21.0-32.0) mmol/L BUN (7.0-18.0) mg/dL Creatinine (0.6-1.0) mg/dL Est Cr Clr Drug Dosing Estimated GFR (MDRD) ml/min Glucose (74-106) mg/dL POC Glucose 373 H (70-99) mg/dL Hemoglobin A1c (4.5 - 6.2) % Lactic Acid (0.4-2.0) mmol/L Calcium (8.5-10.1) mg/dL Phosphorus (2.6-4.7) mg/dL Magnesium (1.8-2.4) mg/dL Total Bilirubin (0.2-1.0) mg/dL AST (15-37) IU/L ALT (14-63) IU/L Alkaline Phosphatase (46-116) U/L Creatine Kinase (26-308) U/L Troponin I < 0.050 (0.000-0.056) ng/mL Total Protein (6.4-8.2) g/dL Albumin (3.4-5.0) g/dL Globulin (2.6-4.0) g/dL Albumin/Globulin Ratio (0.9-1.6) Lipase (73-393) U/L Urine Color Urine Appearance Urine pH (5.0-8.0) Ur Specific [place] (1.001-1.035) Urine Protein (NEGATIVE) mg/dL Urine Glucose (UA) (NEGATIVE) mg/dL Urine Ketones (NEGATIVE) mg/dL Urine Occult Blood (NEGATIVE) Urine Nitrite (NEGATIVE) Urine Bilirubin (NEGATIVE) Urine Urobilinogen (<2.0) EU/dL Ur Leukocyte Esterase (NEGATIVE) Urine Opiates Screen (NEGATIVE) Ur Oxycodone Screen (NEGATIVE) Urine Methadone Screen (NEGATIVE) Ur Barbiturates Screen (NEGATIVE) Ur Phencyclidine Scrn (NEGATIVE) Ur Amphetamine Screen (NEGATIVE) U Methamphetamines Scrn (NEGATIVE) U Benzodiazepines Scrn (NEGATIVE) U Cocaine Metab Screen (NEGATIVE) U Marijuana (THC) Screen (NEGATIVE) Ethyl Alcohol mg/dL SARS-CoV-2 RNA (YAIR) NEGATIVE (NEGATIVE) 01/17/21 01/17/21 01/18/21 Range/Units 21:55 22:27 01:02 WBC (4.0-11.0) K/uL RBC (4.30-5.90) M/uL Hgb (12.0-16.0) g/dL Hct (36.0-46.0) % MCV (80.0-98.0) fL MCH (27.0-32.0) pg MCHC (31.0-37.0) g/dL RDW Std Deviation (28.0-62.0) fl RDW Coeff of [place] (11.0-15.0) % Plt Count (150-400) K/uL MPV (7.40-12.00) fL Neut % (Auto) (48.0-80.0) % Lymph % (Auto) (16.0-40.0) % [place]ell % (Auto) (0.0-15.0) % Eos % (Auto) (0.0-7.0) % Baso % (Auto) (0.0-1.5) % Neut # (Auto) (1.4-5.7) K/uL Lymph # (Auto) (0.6-2.4) K/uL [place] # (Auto) (0.0-0.8) K/uL Eos # (Auto) (0.0-0.7) K/uL Baso # (Auto) (0.0-0.1) K/uL Nucleated RBC % /100WBC Nucleated RBCs # K/uL Sodium (136-145) mmol/L Potassium (3.5-5.1) mmol/L Chloride (98-107) mmol/L Carbon Dioxide (21.0-32.0) mmol/L BUN (7.0-18.0) mg/dL Creatinine (0.6-1.0) mg/dL Est Cr Clr Drug Dosing Estimated GFR (MDRD) ml/min Glucose (74-106) mg/dL POC Glucose 319 H 278 H (70-99) mg/dL Hemoglobin A1c (4.5 - 6.2) % Lactic Acid 0.7 (0.4-2.0) mmol/L Calcium (8.5-10.1) mg/dL Phosphorus (2.6-4.7) mg/dL Magnesium (1.8-2.4) mg/dL Total Bilirubin (0.2-1.0) mg/dL AST (15-37) IU/L ALT (14-63) IU/L Alkaline Phosphatase (46-116) U/L Creatine Kinase (26-308) U/L Troponin I (0.000-0.056) ng/mL Total Protein (6.4-8.2) g/dL Albumin (3.4-5.0) g/dL Globulin (2.6-4.0) g/dL Albumin/Globulin Ratio (0.9-1.6) Lipase (73-393) U/L Urine Color Urine Appearance Urine pH (5.0-8.0) Ur Specific [place] (1.001-1.035) Urine Protein (NEGATIVE) mg/dL Urine Glucose (UA) (NEGATIVE) mg/dL Urine Ketones (NEGATIVE) mg/dL Urine Occult Blood (NEGATIVE) Urine Nitrite (NEGATIVE) Urine Bilirubin (NEGATIVE) Urine Urobilinogen (<2.0) EU/dL Ur Leukocyte Esterase (NEGATIVE) Urine Opiates Screen (NEGATIVE) Ur Oxycodone Screen (NEGATIVE) Urine Methadone Screen (NEGATIVE) Ur Barbiturates Screen (NEGATIVE) Ur Phencyclidine Scrn (NEGATIVE) Ur Amphetamine Screen (NEGATIVE) U Methamphetamines Scrn (NEGATIVE) U Benzodiazepines Scrn (NEGATIVE) U Cocaine Metab Screen (NEGATIVE) U Marijuana (THC) Screen (NEGATIVE) Ethyl Alcohol mg/dL SARS-CoV-2 RNA (YAIR) (NEGATIVE) 01/18/21 01/18/21 01/18/21 Range/Units 04:10 04:10 04:10 WBC 7.64 (4.0-11.0) K/uL RBC 4.03 L (4.30-5.90) M/uL Hgb 12.1 (12.0-16.0) g/dL Hct 36.7 (36.0-46.0) % MCV 91.1 (80.0-98.0) fL MCH 30.0 (27.0-32.0) pg MCHC 33.0 (31.0-37.0) g/dL RDW Std Deviation 45.1 (28.0-62.0) fl RDW Coeff of [place] 14 (11.0-15.0) % Plt Count 239 (150-400) K/uL MPV 9.20 (7.40-12.00) fL Neut % (Auto) 55.0 (48.0-80.0) % Lymph % (Auto) 35.2 (16.0-40.0) % [place] % (Auto) 8.8 (0.0-15.0) % Eos % (Auto) 0.7 (0.0-7.0) % Baso % (Auto) 0.3 (0.0-1.5) % Neut # (Auto) 4.2 (1.4-5.7) K/uL Lymph # (Auto) 2.7 H (0.6-2.4) K/uL [place] # (Auto) 0.7 (0.0-0.8) K/uL Eos # (Auto) 0.1 (0.0-0.7) K/uL Baso # (Auto) 0.0 (0.0-0.1) K/uL Nucleated RBC % 0.0 /100WBC Nucleated RBCs # 0 K/uL Sodium 140 (136-145) mmol/L Potassium 4.1 (3.5-5.1) mmol/L Chloride 108 H (98-107) mmol/L Carbon Dioxide 24.0 (21.0-32.0) mmol/L BUN 24 H (7.0-18.0) mg/dL Creatinine 1.2 H (0.6-1.0) mg/dL Est Cr Clr Drug Dosing 40.84 Estimated GFR (MDRD) 44.4 ml/min Glucose 237 H (74-106) mg/dL POC Glucose (70-99) mg/dL Hemoglobin A1c (4.5 - 6.2) % Lactic Acid (0.4-2.0) mmol/L Calcium 8.3 L (8.5-10.1) mg/dL Phosphorus (2.6-4.7) mg/dL Magnesium (1.8-2.4) mg/dL Total Bilirubin 0.3 (0.2-1.0) mg/dL AST 12 L (15-37) IU/L ALT 15 (14-63) IU/L Alkaline Phosphatase 96 (46-116) U/L Creatine Kinase (26-308) U/L Troponin I < 0.050 (0.000-0.056) ng/mL Total Protein 5.4 L (6.4-8.2) g/dL Albumin 2.4 L (3.4-5.0) g/dL Globulin 3.0 (2.6-4.0) g/dL Albumin/Globulin Ratio 0.8 L (0.9-1.6) Lipase (73-393) U/L Urine Color Urine Appearance Urine pH (5.0-8.0) Ur Specific [place] (1.001-1.035) Urine Protein (NEGATIVE) mg/dL Urine Glucose (UA) (NEGATIVE) mg/dL Urine Ketones (NEGATIVE) mg/dL Urine Occult Blood (NEGATIVE) Urine Nitrite (NEGATIVE) Urine Bilirubin (NEGATIVE) Urine Urobilinogen (<2.0) EU/dL Ur Leukocyte Esterase (NEGATIVE) Urine Opiates Screen (NEGATIVE) Ur Oxycodone Screen (NEGATIVE) Urine Methadone Screen (NEGATIVE) Ur Barbiturates Screen (NEGATIVE) Ur Phencyclidine Scrn (NEGATIVE) Ur Amphetamine Screen (NEGATIVE) U Methamphetamines Scrn (NEGATIVE) U Benzodiazepines Scrn (NEGATIVE) U Cocaine Metab Screen (NEGATIVE) U Marijuana (THC) Screen (NEGATIVE) Ethyl Alcohol mg/dL SARS-CoV-2 RNA (YAIR) (NEGATIVE) 01/18/21 01/18/21 01/18/21 Range/Units 04:51 09:53 12:45 WBC (4.0-11.0) K/uL RBC (4.30-5.90) M/uL Hgb (12.0-16.0) g/dL Hct (36.0-46.0) % MCV (80.0-98.0) fL MCH (27.0-32.0) pg MCHC (31.0-37.0) g/dL RDW Std Deviation (28.0-62.0) fl RDW Coeff of [place] (11.0-15.0) % Plt Count (150-400) K/uL MPV (7.40-12.00) fL Neut % (Auto) (48.0-80.0) % Lymph % (Auto) (16.0-40.0) % [place] % (Auto) (0.0-15.0) % Eos % (Auto) (0.0-7.0) % Baso % (Auto) (0.0-1.5) % Neut # (Auto) (1.4-5.7) K/uL Lymph # (Auto) (0.6-2.4) K/uL [place] # (Auto) (0.0-0.8) K/uL Eos # (Auto) (0.0-0.7) K/uL Baso # (Auto) (0.0-0.1) K/uL Nucleated RBC % /100WBC Nucleated RBCs # K/uL Sodium (136-145) mmol/L Potassium (3.5-5.1) mmol/L Chloride (98-107) mmol/L Carbon Dioxide (21.0-32.0) mmol/L BUN (7.0-18.0) mg/dL Creatinine (0.6-1.0) mg/dL Est Cr Clr Drug Dosing Estimated GFR (MDRD) ml/min Glucose (74-106) mg/dL POC Glucose 228 H 198 H 219 H (70-99) mg/dL Hemoglobin A1c (4.5 - 6.2) % Lactic Acid (0.4-2.0) mmol/L Calcium (8.5-10.1) mg/dL Phosphorus (2.6-4.7) mg/dL Magnesium (1.8-2.4) mg/dL Total Bilirubin (0.2-1.0) mg/dL AST (15-37) IU/L ALT (14-63) IU/L Alkaline Phosphatase (46-116) U/L Creatine Kinase (26-308) U/L Troponin I (0.000-0.056) ng/mL Total Protein (6.4-8.2) g/dL Albumin (3.4-5.0) g/dL Globulin (2.6-4.0) g/dL Albumin/Globulin Ratio (0.9-1.6) Lipase (73-393) U/L Urine Color Urine Appearance Urine pH (5.0-8.0) Ur Specific [place] (1.001-1.035) Urine Protein (NEGATIVE) mg/dL Urine Glucose (UA) (NEGATIVE) mg/dL Urine Ketones (NEGATIVE) mg/dL Urine Occult Blood (NEGATIVE) Urine Nitrite (NEGATIVE) Urine Bilirubin (NEGATIVE) Urine Urobilinogen (<2.0) EU/dL Ur Leukocyte Esterase (NEGATIVE) Urine Opiates Screen (NEGATIVE) Ur Oxycodone Screen (NEGATIVE) Urine Methadone Screen (NEGATIVE) Ur Barbiturates Screen (NEGATIVE) Ur Phencyclidine Scrn (NEGATIVE) Ur Amphetamine Screen (NEGATIVE) U Methamphetamines Scrn (NEGATIVE) U Benzodiazepines Scrn (NEGATIVE) U Cocaine Metab Screen (NEGATIVE) U Marijuana (THC) Screen (NEGATIVE) Ethyl Alcohol mg/dL SARS-CoV-2 RNA (YAIR) (NEGATIVE) Result Diagrams: 01/18/21 04:10 01/18/21 04:10 Deven Results Last 24 hrs: Microbiology 01/17/21 16:15 Anaerobic Blood Culture - Final Blood - Venous Sepsis Event Note - Evaluation Sepsis Screening Result: No Definite Risk - Focused Exam Vital Signs: Vital Signs Temp Pulse Resp BP Pulse Ox 01/18/21 12:00 36.8 C 67 16 160/70 H 96 01/18/21 08:00 36.4 C 70 16 178/73 H 93 L 01/18/21 04:46 35.8 C L 71 18 146/57 H 94 L - Problem List & Annotations (1) KATHARINE (acute kidney injury) SNOMED Code(s): 85293577, 63024733 Code(s): N17.9 - ACUTE KIDNEY FAILURE, UNSPECIFIED Status: Acute Current Visit: Yes (2) Dehydration SNOMED Code(s): 31394101 Code(s): E86.0 - DEHYDRATION Status: Acute Current Visit: Yes (3) Diabetes mellitus SNOMED Code(s): 96048298 Code(s): E11.9 - TYPE 2 DIABETES MELLITUS WITHOUT COMPLICATIONS Status: Acute Current Visit: Yes (4) Hyperglycemia SNOMED Code(s): 03421600 Code(s): R73.9 - HYPERGLYCEMIA, UNSPECIFIED Status: Acute Current Visit: Yes (5) Slurred speech SNOMED Code(s): 662187183 Code(s): R47.81 - SLURRED SPEECH Status: Acute Current Visit: Yes - Problem List Review Problem List Initiated/Reviewed/Updated: Yes - My Orders Last 24 Hours: My Active Orders 01/17/21 20:36 Oxygen Therapy [RC] PRN Up ad Abida [RC] ASDIRECTED VTE/DVT Education [RC] PER UNIT ROUTINE Vital Signs [RC] Q4H Consult to Diabetic Nurse Specialist [CONS] Routine Resuscitation Status Routine 01/17/21 20:38 Blood Glucose Check, Bedside [RC] Q4H Dextrose 50% in Water 50 ml IVPUSH ASDIRECTED PRN Glucagon,Human Recombinant [GlucaGen] 1 mg IM ASDIRECTED PRN 01/17/21 20:45 Enoxaparin [Lovenox] 40 mg SUBCUT Q24H 01/17/21 21:00 Gabapentin [Neurontin] 300 mg PO BEDTIME 01/18/21 08:41 Brain w wo Cont [MR] Routine 01/18/21 09:00 Clopidogrel [Plavix] 75 mg PO DAILY Insulin Glarg,Human.Rec.Analog [LantUS Solostar] 5 units SUBCUT DAILY OXcarbazepine [Trileptal] 150 mg PO BID 01/18/21 09:58 Consult to Physical Therapy [PT Evaluation and Treatment] [CONS] Routine 01/18/21 17:00 Insulin Aspart [NovoLOG] See Protocol SUBCUT TIDAC 01/18/21 21:00 Rosuvastatin [Crestor] 20 mg PO BEDTIME - Plan Plan:: 70 yo female who presents with hyperglycemia, acute kidney injury likely due to dehydration. Hyperglycemia: resolving, will place on lantus and sliding scale insulin KATHARINE: resolving with IV fluids Slurred speech: resolved, MRI brain pending.
--- NOTE | 2021-01-18 14:19 | MR ---
INDICATION: Slurred speech. TECHNIQUE: Brain MRI with contrast. The following sequences were obtained: Sagittal T1 weighted sequence. DWI and ADC mapping sequences. Axial FLAIR and MARIZOL T2 weighted sequences. Axial and coronal T1 weighted post-contrast sequences. 14 cc of MultiHance gadolinium based contrast agent was used. COMPARISON: Head CT from 01/17/2021. FINDINGS: No evidence of acute ischemia. No evidence of acute or chronic intracranial blood products. No mass or pathologic intracranial enhancement. 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 Mild surrounding gliotic change. Mild ventriculomegaly elsewhere. Scattered FLAIR hyperintensities within the supratentorial white matter and brainstem, typical for chronic microvascular ischemic change. A small chronic lacunar infarct within the left posterior limb internal capsule. Left-sided wallerian degeneration. No hydrocephalus or extra-axial collections. The pituitary gland, parasellar structures and optic chiasm are normal. All the major intracranial vascular structures demonstrate normal flow-related signal. The orbital contents are normal. No calvarial or skull base marrow signal abnormality. Right maxillary sinus atelectasis with opacification by T1/T2 hyperintense material suggestive of mucocele. No extracranial soft tissue findings. IMPRESSION: 1. No acute infarction of acute intracranial pathology. 2. 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 3. Left internal capsule posterior limb lacunar infarct with associated wallerian degeneration. 4. Scattered chronic microvascular ischemic changes within the supratentorial white matter. Dictated by Jose E Ling MD @ 01/18/2021 2:19:13 PM (Electronically Signed)
[2021-01-18] MEDS ORDERED: Rosuvastatin 10 MG Tab PO SCH (21:00)
[2021-01-18] MEDS: Enoxaparin 40 MG/0.4 ML Syringe SUBCUT SCH (21:59)
[2021-01-18] MEDS: Gabapentin 300 MG Cap PO SCH (22:00)
[2021-01-19 08:17] LABS: CARBON DIOXIDE,CO2 25.6 mmol/L (21.0-32.0); POTASSIUM,K 4.2 mmol/L (3.5-5.1)
[2021-01-19] MEDS: OXcarbazepine 300 MG Tab PO SCH (08:30)
[2021-01-19] MEDS: Clopidogrel 75 MG Tab PO SCH (08:31)
[2021-01-19] MEDS: Insulin Glargine,Human Rec. Analog 100 Units/ML 3 ML Pen SUBCUT SCH (11:54)
[2021-01-19] MEDS: Insulin Aspart 100 Units/ML 3 ML Pen SUBCUT SCH ×2 (11:55→12:04)
--- NOTE | 2021-01-19 14:03 | PCM.DCSUM1 ---
Discharge Summary - Discharge Data Discharge Date: 01/19/21 Discharge Disposition: Home, Self-Care 01 Condition: Stable - Referral to Home Health Primary Care Physician: Ming Delacruz MD - Patient Summary/Data Consults: Consultations 01/17/21 20:36 Consult to Diabetic Nurse Specialist [CONS] Routine 01/18/21 09:58 Consult to Physical Therapy [PT Evaluation and Treatment] [CONS] Routine Hospital Course: 70 yo female with pmh of DM, COPD, and chronic back pain who presented to the ED with concerns from family that she is having slurred speech. Patient reports lightheadedness and fatigue. Work up was significant for Blood glucose of 571, Creatinine increased to 2.0, and a HgA1c of 11.3. Work up for slurred speech consisted of CT head which did not show any indication of acute stroke. CTA of head and neck reported occlusion of the left internal carotid artery with reconstitution at the level of the [place], patent right carotid stent and no intracranial large vessel occlusion or flow limiting stenosis. MRI reported no acute infarction, a chronic eft occipital porencephalic dilation, left internal capsule posterior limb lacunar infarct. She was admitted for acute kidney injury due to dehydration from hyperglycemia. She was given fluids and her elevated creatinine and symptoms of lightheadedness resolved. Patient has not been on insulin before admission. Diabetic education was consulted regarding starting insulin. Patient was discharged home to have follow up with Dr. Powers - Patient Instructions Diet: Diabetic Diet Activity: As Tolerated - Discharge Plan Prescriptions/Med Rec: Insulin Glargine,Hum.Rec.Anlog [Lantus Solostar] 5 unit SQ DAILY #1 insuln.pen Insulin Aspart [Novolog Flexpen] See Protocol SQ TIDAC #1 insuln.pen Home Medications: Home Meds OXcarbazepine [Oxcarbazepine] 150 mg PO BID 01/07/18 [History] Glimepiride [Amaryl] 2 mg PO QPM 05/31/18 [History] Glimepiride [Amaryl] 4 mg PO ACBREAKFAST 06/28/19 [History] Rosuvastatin Calcium 20 mg PO DAILY 06/28/19 [History] metFORMIN [Glucophage] 250 mg PO BIDMEALS 06/28/19 [History] Clopidogrel [Plavix] 75 mg PO DAILY 01/16/21 [History] Gabapentin [Neurontin] 300 mg PO BEDTIME #15 cap 01/16/21 [Rx] Insulin Aspart [Novolog Flexpen] See Protocol SQ TIDAC #1 insuln.pen 01/19/21 [Rx] Insulin Glargine,Hum.Rec.Anlog [Lantus Solostar] 5 unit SQ DAILY #1 insuln.pen 01/19/21 [Rx] Patient Handouts: Hyperglycemia, Type 2 Diabetes Mellitus, Diagnosis, Adult, [id number], Blood Glucose Monitoring, Adult, Diabetes Mellitus and Nutrition, Adult Referrals: Machelle Sheth, [Ordering Only Provider] - 01/23/21 3:15 pm - Discharge Summary/Plan Comment DC Time >30 min.: No Total # of Minutes for Discharge Time: 20 - Patient Data Vitals - Most Recent: Last Vital Signs Temp 35.6 C L 01/19/21 08:00 Pulse 75 01/19/21 08:00 Resp 16 01/19/21 08:00 BP 155/56 H 01/19/21 08:00 Pulse Ox 95 01/19/21 08:00 Weight - Most Recent: 76.5 kg I&O - Last 24 hours: Intake & Output 01/18/21 01/19/21 01/19/21 22:59 06:59 14:59 Intake Total 550 500 Output Total 500 750 Balance 50 -250 Lab Results - Last 24 hrs: Laboratory Results - last 24 hr 01/17/21 01/17/21 01/18/21 Range/Units 18:15 21:55 18:01 WBC (4.0-11.0) K/uL RBC (4.30-5.90) M/uL Hgb (12.0-16.0) g/dL Hct (36.0-46.0) % MCV (80.0-98.0) fL MCH (27.0-32.0) pg MCHC (31.0-37.0) g/dL RDW Std Deviation (28.0-62.0) fl RDW Coeff of [place] (11.0-15.0) % Plt Count (150-400) K/uL MPV (7.40-12.00) fL Neut % (Auto) (48.0-80.0) % Lymph % (Auto) (16.0-40.0) % [place] % (Auto) (0.0-15.0) % Eos % (Auto) (0.0-7.0) % Baso % (Auto) (0.0-1.5) % Neut # (Auto) (1.4-5.7) K/uL Lymph # (Auto) (0.6-2.4) K/uL [place] # (Auto) (0.0-0.8) K/uL Eos # (Auto) (0.0-0.7) K/uL Baso # (Auto) (0.0-0.1) K/uL Nucleated RBC % /100WBC Nucleated RBCs # K/uL Sodium (136-145) mmol/L Potassium (3.5-5.1) mmol/L Chloride (98-107) mmol/L Carbon Dioxide (21.0-32.0) mmol/L BUN (7.0-18.0) mg/dL Creatinine (0.6-1.0) mg/dL Est Cr Clr Drug Dosing mL/min Estimated GFR (MDRD) ml/min Glucose (74-106) mg/dL POC Glucose 278 H (70-99) mg/dL Serum Osmolality 325 H (275-295) mosm/kg Calcium (8.5-10.1) mg/dL Total Bilirubin (0.2-1.0) mg/dL AST (15-37) IU/L ALT (14-63) IU/L Alkaline Phosphatase (46-116) U/L Total Protein (6.4-8.2) g/dL Albumin (3.4-5.0) g/dL Globulin (2.6-4.0) g/dL Albumin/Globulin Ratio (0.9-1.6) Urine Osmolality 715 (300-900) mosm/kg 01/19/21 01/19/21 01/19/21 Range/Units 06:54 07:36 07:36 WBC 5.84 (4.0-11.0) K/uL RBC 4.15 L (4.30-5.90) M/uL Hgb 12.5 (12.0-16.0) g/dL Hct 38.0 (36.0-46.0) % MCV 91.6 (80.0-98.0) fL MCH 30.1 (27.0-32.0) pg MCHC 32.9 (31.0-37.0) g/dL RDW Std Deviation 44.7 (28.0-62.0) fl RDW Coeff of [place] 13 (11.0-15.0) % Plt Count 233 (150-400) K/uL MPV 9.20 (7.40-12.00) fL Neut % (Auto) 53.4 (48.0-80.0) % Lymph % (Auto) 35.6 (16.0-40.0) % [place] % (Auto) 9.8 (0.0-15.0) % Eos % (Auto) 1.0 (0.0-7.0) % Baso % (Auto) 0.2 (0.0-1.5) % Neut # (Auto) 3.1 (1.4-5.7) K/uL Lymph # (Auto) 2.1 (0.6-2.4) K/uL [place] # (Auto) 0.6 (0.0-0.8) K/uL Eos # (Auto) 0.1 (0.0-0.7) K/uL Baso # (Auto) 0.0 (0.0-0.1) K/uL Nucleated RBC % 0.0 /100WBC Nucleated RBCs # 0 K/uL Sodium 139 (136-145) mmol/L Potassium 4.2 (3.5-5.1) mmol/L Chloride 106 (98-107) mmol/L Carbon Dioxide 25.6 (21.0-32.0) mmol/L BUN 15 (7.0-18.0) mg/dL Creatinine 1.1 H (0.6-1.0) mg/dL Est Cr Clr Drug Dosing 44.55 mL/min Estimated GFR (MDRD) 49.1 ml/min Glucose 238 H (74-106) mg/dL POC Glucose 217 H (70-99) mg/dL Serum Osmolality (275-295) mosm/kg Calcium 8.8 (8.5-10.1) mg/dL Total Bilirubin 0.4 (0.2-1.0) mg/dL AST 11 L (15-37) IU/L ALT 18 (14-63) IU/L Alkaline Phosphatase 96 (46-116) U/L Total Protein 6.0 L (6.4-8.2) g/dL Albumin 2.5 L (3.4-5.0) g/dL Globulin 3.5 (2.6-4.0) g/dL Albumin/Globulin Ratio 0.7 L (0.9-1.6) Urine Osmolality (300-900) mosm/kg 01/19/21 Range/Units 11:53 WBC (4.0-11.0) K/uL RBC (4.30-5.90) M/uL Hgb (12.0-16.0) g/dL Hct (36.0-46.0) % MCV (80.0-98.0) fL MCH (27.0-32.0) pg MCHC (31.0-37.0) g/dL RDW Std Deviation (28.0-62.0) fl RDW Coeff of [place] (11.0-15.0) % Plt Count (150-400) K/uL MPV (7.40-12.00) fL Neut % (Auto) (48.0-80.0) % Lymph % (Auto) (16.0-40.0) % [place] % (Auto) (0.0-15.0) % Eos % (Auto) (0.0-7.0) % Baso % (Auto) (0.0-1.5) % Neut # (Auto) (1.4-5.7) K/uL Lymph # (Auto) (0.6-2.4) K/uL [place] # (Auto) (0.0-0.8) K/uL Eos # (Auto) (0.0-0.7) K/uL Baso # (Auto) (0.0-0.1) K/uL Nucleated RBC % /100WBC Nucleated RBCs # K/uL Sodium (136-145) mmol/L Potassium (3.5-5.1) mmol/L Chloride (98-107) mmol/L Carbon Dioxide (21.0-32.0) mmol/L BUN (7.0-18.0) mg/dL Creatinine (0.6-1.0) mg/dL Est Cr Clr Drug Dosing mL/min Estimated GFR (MDRD) ml/min Glucose (74-106) mg/dL POC Glucose 257 H (70-99) mg/dL Serum Osmolality (275-295) mosm/kg Calcium (8.5-10.1) mg/dL Total Bilirubin (0.2-1.0) mg/dL AST (15-37) IU/L ALT (14-63) IU/L Alkaline Phosphatase (46-116) U/L Total Protein (6.4-8.2) g/dL Albumin (3.4-5.0) g/dL Globulin (2.6-4.0) g/dL Albumin/Globulin Ratio (0.9-1.6) Urine Osmolality (300-900) mosm/kg AJITH Results - Last 24 hrs: Microbiology 01/17/21 16:25 Aerobic Blood Culture - Preliminary Blood - Venous - Lab Draw NO GROWTH AFTER 1 DAY Anaerobic Blood Culture - Preliminary NO GROWTH AFTER 1 DAY 01/17/21 16:15 Aerobic Blood Culture - Preliminary Blood - Venous NO GROWTH AFTER 1 DAY Anaerobic Blood Culture - Final Med Orders - Current: Current Medications Clopidogrel Bisulfate (Clopidogrel 75 Mg Tab) 75 mg PO DAILY [facility] Last Admin: 01/19/21 08:31 Dose: 75 mg Documented by: Dextrose/Water (50% Dextrose In Water 50 Ml Syringe) 50 ml IVPUSH ASDIRECTED PRN PRN Reason: Hypoglycemia Dextrose/Water (50% Dextrose In Water 50 Ml Syringe) 50 ml IVPUSH ASDIRECTED PRN PRN Reason: Hypoglycemia Enoxaparin Sodium (Enoxaparin 40 Mg/0.4 Ml Syringe) 40 mg SUBCUT Q24H [facility] Last Admin: 01/18/21 21:59 Dose: 40 mg Documented by: Gabapentin (Gabapentin 300 Mg Cap) 300 mg PO BEDTIME [facility] Last Admin: 01/18/21 22:00 Dose: 300 mg Documented by: Glucagon (Glucagon,Human Recombinant 1 Mg Vial) 1 mg IM ASDIRECTED PRN PRN Reason: Hypoglycemia Glucagon (Glucagon,Human Recombinant 1 Mg Vial) 1 mg IM ASDIRECTED PRN PRN Reason: Hypoglycemia Insulin Aspart (Insulin Aspart 100 Units/Ml 3 Ml Pen) 0 unit SUBCUT TIDAC [facility]; Protocol Last Admin: 01/19/21 12:04 Dose: 3 units Documented by: Insulin Glargine (Insulin Glargine,Human Rec. Analog 100 Units/Ml 3 Ml Pen) 5 units SUBCUT DAILY [facility] Last Admin: 01/19/21 11:54 Dose: 5 units Documented by: Oxcarbazepine (Oxcarbazepine 300 Mg Tab) 150 mg PO BID [facility] Last Admin: 01/19/21 08:30 Dose: 150 mg Documented by: Rosuvastatin Calcium (Rosuvastatin 10 Mg Tab) 20 mg PO BEDTIME [facility] Last Admin: 01/18/21 22:00 Dose: 20 mg Documented by: Discontinued Medications Gadobenate Dimeglumine (Gadobenate Dimeglumine 529 Mg/Ml 20 Ml Sdv) 20 ml IVPUSH ONETIME STA Stop: 01/18/21 13:10 Last Admin: 01/18/21 13:10 Dose: 14 ml Documented by: Sodium Chloride (Normal Saline) 1,000 mls @ 1,000 mls/hr IV .Bolus ONE Stop: 01/17/21 18:22 Last Admin: 01/17/21 17:48 Dose: 1,000 mls/hr Documented by: Sodium Chloride (Normal Saline) 1,000 mls @ 125 mls/hr IV ASDIRECTED [facility] Stop: 01/18/21 04:44 Last Admin: 01/18/21 02:26 Dose: 125 mls/hr Documented by: Insulin Aspart (Insulin Aspart 100 Units/Ml 3 Ml Pen) 0 unit SUBCUT Q4H [facility]; Protocol Last Admin: 01/18/21 14:39 Dose: 2 unit Documented by: Insulin Human Regular (Insulin Regular, Human 100 Units/Ml 10 Ml Vial) 10 unit IVPUSH ONETIME ONE; Protocol Stop: 01/17/21 17:59 Last Admin: 01/17/21 21:37 Dose: 10 units Documented by: Insulin Human Regular (Insulin Regular, Human 100 Units/Ml 10 Ml Vial) Confirm Administered Dose 1,000 unit .ROUTE .STK-MED ONE Stop: 01/17/21 21:33 Last Admin: 01/17/21 23:07 Dose: Not Given Documented by: Iopamidol (Iopamidol 755 Mg/Ml 500 Ml Multipack Bottle) 100 ml IVPUSH ONETIME STA Stop: 01/17/21 16:12 Last Admin: 01/17/21 16:11 Dose: 100 ml Documented by: Non-Formulary Medication (Rosuvastatin Calcium) 20 mg PO DAILY [facility] Non-Formulary Medication (Oxcarbazepine) 150 mg PO BID [facility] Last Admin: 01/17/21 23:20 Dose: Not Given Documented by:
== END 2021-01-19 15:14 | disposition home or self-care (01) | DRG 638 ==
LOC: MW.ED 15:29 → MW.MS 17:59
PROVIDERS: ADMIT Internal Medicine; ATTEND Internal Medicine
DX: E11.65 Type 2 diabetes mellitus with hyperglycemia (principal); N17.9 Acute kidney failure, unspecified; I65.22 Occlusion and stenosis of left carotid artery; J44.9 Chronic obstructive pulmonary disease, unspecified; R47.81 Slurred speech; M19.90 Unspecified osteoarthritis, unspecified site; E86.0 Dehydration; Z20.822 Contact with and (suspected) exposure to COVID-19; Z88.8 Allergy status to other drugs, medicaments and biological substances; Z79.899 Other long term (current) drug therapy; Z79.84 Long term (current) use of oral hypoglycemic drugs; Z79.02 Long term (current) use of antithrombotics/antiplatelets; Z98.49 Cataract extraction status, unspecified eye; Z86.73 Personal history of transient ischemic attack (TIA), and cerebral infarction without residual deficits; Z87.891 Personal history of nicotine dependence
CPT/HCPCS: 36415; 70450; 70496; 70498; 80053; 80307; 82550; 83036; 83605; 83690; 83735; 84100; 84484; 85025; 87040 ×2; 99285; J7030; Q9967; 70553; 70553-26; 71045; 71045-26; 80305-QW; 81003; 82947; 83930; 83935; 93005; 97161-GP; A9270-GY; A9577; J1650; J1815-GY; U0002

== ENCOUNTER 2021-02-23 10:27 | Emergency (ER) | payer MEDICARE, OTHER ==
[2021-02-23] MEDS ORDERED: Benzocaine 20% Topical Spray UD MUCMEM ONE (10:45)
[2021-02-23] MEDS ORDERED: Lidocaine 2% Jelly 30 ML Tube MUCMEM STA (10:45)
[2021-02-23] MEDS ORDERED: Lidocaine 2% Viscous Solution 100 ML Bottle PO ONE (10:57)
[2021-02-23] MEDS ORDERED: Lidocaine 2% 5 ML SDV INJECT ONE (11:03)
[2021-02-23] MEDS ORDERED: Clindamycin HCl 150 MG Cap PO ONE (11:11)
--- NOTE | 2021-02-23 11:53 | EDM.PDOC ---
ED HPI GENERAL MEDICAL PROBLEM - General Chief Complaint: ENT Problem Stated Complaint: DRY SOCKET Time Seen by Provider: 02/23/21 10:34 Source of Information: Reports: Patient History Limitations: Reports: No Limitations - History of Present Illness INITIAL COMMENTS - FREE TEXT/NARRATIVE: Patient is a 70-year-old female who presents today for left upper tooth pain. Patient had a tooth removed 2 months ago was been having constant pain. Had history of dry socket in the area before. Says this feels similar. She denies any swelling to the area. She denies any difficulty breathing or swallowing. Denies any fever chills or other complaints. tooth Pain Score (Numeric/FACES): 4 - Related Data Allergies Allergy/AdvReac Type Severity Reaction Status Date / Time prednisone Allergy Hallucinati Verified 02/23/21 10:31 ons Home Meds: Home Meds OXcarbazepine [Oxcarbazepine] 150 mg PO BID 01/07/18 [History] Glimepiride [Amaryl] 2 mg PO QPM 05/31/18 [History] Glimepiride [Amaryl] 4 mg PO ACBREAKFAST 06/28/19 [History] Rosuvastatin Calcium 20 mg PO DAILY 06/28/19 [History] metFORMIN [Glucophage] 250 mg PO BIDMEALS 06/28/19 [History] Clopidogrel [Plavix] 75 mg PO DAILY 01/16/21 [History] Gabapentin [Neurontin] 300 mg PO BEDTIME #15 cap 01/16/21 [Rx] Insulin Aspart [Novolog Flexpen] See Protocol SQ TIDAC #1 insuln.pen 01/19/21 [Rx] Insulin Glargine,Hum.Rec.Anlog [Lantus Solostar] 5 unit SQ DAILY #1 insuln.pen 01/19/21 [Rx] Past Medical History HEENT History: Reports: Cataract Cardiovascular History: Reports: Other (See Below) Other Cardiovascular History: BLE edema Respiratory History: Reports: COPD, SOB Gastrointestinal History: Reports: None Genitourinary History: Reports: None 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 Musculoskeletal History: Reports: Osteoarthritis Neurological History: Reports: CVA, Seizure Other Neuro History: hx of 1 seizure in 2014- still taking medication Psychiatric History: Reports: None Endocrine/Metabolic History: Reports: Diabetes, Type II Hematologic History: Reports: None Immunologic History: Reports: None Oncologic (Cancer) History: Reports: None Dermatologic History: Reports: None - Infectious Disease History Infectious Disease History: Reports: Chicken Pox - Past Surgical History Head Surgeries/Procedures: Reports: None HEENT Surgical History: Reports: Cataract Surgery Cardiovascular Surgical History: Reports: Carotid Stents Respiratory Surgical History: Reports: None GI Surgical History: Reports: Colonoscopy Female Surgical History: Reports: None Endocrine Surgical History: Reports: None Neurological Surgical History: Reports: None Musculoskeletal Surgical History: Reports: None Oncologic Surgical History: Reports: None Dermatological Surgical History: Reports: None Social & Family History - Family History Family Medical History: No Pertinent Family History - Caffeine Use Caffeine Use: Reports: None Caffeine Use Comment: none since 1987 - Recreational Drug Use Recreational Drug Use: No ED ROS ENT - Review of Systems Review Of Systems: See Below Constitutional: Reports: No Symptoms HEENT: Reports: Dental Pain Respiratory: Reports: No Symptoms Endocrine: Reports: No Symptoms GI/Abdominal: Reports: No Symptoms : Reports: No Symptoms Musculoskeletal: Reports: No Symptoms Skin: Reports: No Symptoms Neurological: Reports: No Symptoms Psychiatric: Reports: No Symptoms Hematologic/Lymphatic: Reports: No Symptoms Immunologic: Reports: No Symptoms ED EXAM, ENT - Physical Exam Exam: See Below Exam Limited By: No Limitations General Appearance: Alert, WD/WN, No Apparent Distress Ears: Normal External Exam Mouth/Throat: Dental Pain, Dental Tenderness. No: Normal Teeth (missing teeth) Respiratory/Chest: No Respiratory Distress, Lungs Clear, Normal Breath Sounds Cardiovascular: Normal Peripheral Pulses, Regular Rate, Rhythm GI/Abdominal: Normal Bowel Sounds, Soft, Non-Tender Extremities: Normal Inspection Neurological: Alert, Oriented, Normal Cognition, Normal Gait Course - Vital Signs Last Recorded V/S: Last Vital Signs Temp 97.0 F 02/23/21 10:32 Pulse 77 02/23/21 10:32 Resp 16 02/23/21 10:32 BP 109/54 L 02/23/21 10:32 Pulse Ox 97 02/23/21 10:32 - Orders/Labs/Meds Meds: Medications Discontinued Medications Generic Name Dose Route Start Last Admin Trade Name Freq PRN Reason Stop Dose Admin Benzocaine 2 each 02/23/21 10:45 02/23/21 11:17 Benzocaine 20% Topical [place] Ud MUCMEM 02/23/21 10:46 2 each ONETIME ONE Administration Clindamycin HCl 300 mg 02/23/21 11:11 02/23/21 11:37 Clindamycin Hcl 150 Mg Cap PO 02/23/21 11:12 300 mg ONETIME ONE Administration Lidocaine 5 ml 02/23/21 11:03 02/23/21 11:18 Lidocaine 2% 5 Ml Sdv INJECT 02/23/21 11:04 Not Given ONETIME ONE Lidocaine HCl 30 ml 02/23/21 10:45 02/23/21 11:19 Lidocaine 2% Jelly 30 Ml Tube MUCMEM 02/23/21 10:46 Not Given STAT STA Lidocaine HCl 20 ml 02/23/21 10:57 02/23/21 11:18 Lidocaine 2% Viscous Solution 100 Ml Bottle PO 02/23/21 10:58 Not Given ONETIME ONE Lidocaine HCl 5 ml 02/23/21 11:07 02/23/21 11:38 Lidocaine 1% 5 Ml Sdv INJECT 02/23/21 11:08 5 ml ONETIME ONE Administration Departure - Departure Time of Disposition: 11:52 Disposition: Home, Self-Care 01 Condition: Good Clinical Impression: Alveolar osteitis - Discharge Information *PRESCRIPTION DRUG MONITORING PROGRAM REVIEWED*: Not Applicable *COPY OF PRESCRIPTION DRUG MONITORING REPORT IN PATIENT JEB: Not Applicable Instructions: Dental Dry Socket Referrals: Machelle Sheth DO [Primary Care Provider] - Additional Instructions: You were seen today for upper left gum pain. This looks to possibly be related to a dry socket from a tooth you had pull. Recommend you continue to keep the area moist you can put moist cotton balls back there to help out you can also take Tylenol Motrin for the pain. We also sent home antibiotics and a stronger pain medicine that you can use only when the pain is not controlled with other measures. Please follow-up with your dentist as soon as possible. The following information is given to patients seen in the emergency department who are being discharged to home. This information is to outline your options for follow-up care. We provide all patients seen in our emergency department with a follow-up referral. The need for follow-up, as well as the timing and circumstances, are variable depending upon the specifics of your emergency department visit. If you don't have a primary care physician on staff, we will provide you with a referral. We always advise you to contact your personal physician following an emergency department visit to inform them of the circumstance of the visit and for follow-up with them and/or the need for any referrals to a consulting specialist. The emergency department will also refer you to a specialist when appropriate. This referral assures that you have the opportunity for follow-up care with a specialist. All of these measure are taken in an effort to provide you with optimal care, which includes your follow-up. Under all circumstances we always encourage you to contact your private physician who remains a resource for coordinating your care. When calling for follow-up care, please make the office aware that this follow-up is from your recent emergency room visit. If for any reason you are refused follow-up, please contact the [facility] Emergency Department at and asked to speak to the emergency department charge nurse. Please follow up with your primary care physician. If you do not have a primary care physician, see below: [facility] [address] [place] [id number] [facility] [address] [place] [id number] Sepsis Event Note (ED) - Evaluation Sepsis Screening Result: No Definite Risk - Focused Exam Vital Signs: Vital Signs Temp Pulse Resp BP Pulse Ox 02/23/21 10:32 97.0 F 77 16 109/54 L 97 - Assessment/Plan Plan: Patient is a 70-year-old female who presents today for left upper jawline pain. On exam there is some tenderness to the socket not seem to be any exposed bone. We used topical lidocaine which helped improve the pain. Patient will be discharged home antibiotics and will follow up with dentist soon.
== END 2021-02-23 11:59 | disposition home or self-care (01) ==
LOC: MW.ED 10:27
DX: M27.3 Alveolitis of jaws (principal); J44.9 Chronic obstructive pulmonary disease, unspecified; E11.9 Type 2 diabetes mellitus without complications; Z88.8 Allergy status to other drugs, medicaments and biological substances; Z79.899 Other long term (current) drug therapy; Z86.73 Personal history of transient ischemic attack (TIA), and cerebral infarction without residual deficits; Z79.4 Long term (current) use of insulin
CPT/HCPCS: 99282; A9270

== ENCOUNTER 2022-06-13 10:00 | Emergency (ER) | payer MEDICARE, OTHER ==
[2022-06-13 11:08] LABS: POTASSIUM,K 4.3 mmol/L (3.5-5.1)
[2022-06-13] MEDS ORDERED: traMADol 50 MG Tab PO ONE (11:16)
== END 2022-06-13 11:27 | disposition home or self-care (01) ==
LOC: MW.ED 10:00
DX: B02.9 Zoster without complications (principal); J44.9 Chronic obstructive pulmonary disease, unspecified; E11.9 Type 2 diabetes mellitus without complications; Z88.8 Allergy status to other drugs, medicaments and biological substances; Z86.73 Personal history of transient ischemic attack (TIA), and cerebral infarction without residual deficits; Z79.02 Long term (current) use of antithrombotics/antiplatelets; Z79.899 Other long term (current) drug therapy; Z79.4 Long term (current) use of insulin
CPT/HCPCS: 36415; 80053; 85025; 85610; 99283; A9270

== ENCOUNTER 2023-05-18 19:25 | Emergency (ER) | payer MEDICARE, OTHER ==
[2023-05-18] MEDS: Cephalexin 500 MG Cap PO ONE (21:54)
== END 2023-05-18 21:58 | disposition home or self-care (01) ==
LOC: MW.ED 19:25
DX: L73.9 Follicular disorder, unspecified (principal); J44.9 Chronic obstructive pulmonary disease, unspecified; E11.9 Type 2 diabetes mellitus without complications; Z87.891 Personal history of nicotine dependence; Z79.84 Long term (current) use of oral hypoglycemic drugs; Z79.02 Long term (current) use of antithrombotics/antiplatelets; Z79.899 Other long term (current) drug therapy; Z88.8 Allergy status to other drugs, medicaments and biological substances
CPT/HCPCS: 99283; A9270

== ENCOUNTER 2023-12-20 20:46 | Emergency (ER) | payer MEDICARE, OTHER ==
[2023-12-20 23:04] LABS: CORONAVIRUS COVID-19 NAA POSITIVE (NEGATIVE); INFLUENZA A NAA NEGATIVE (NEGATIVE); INFLUENZA B NAA NEGATIVE (NEGATIVE); RESPIRATORY SYNCYTIAL VIR NAA NEGATIVE (NEGATIVE)
== END 2023-12-21 00:02 | disposition home or self-care (01) ==
LOC: MW.ED 20:46
DX: U07.1 COVID-19 (principal); J06.9 Acute upper respiratory infection, unspecified; J44.9 Chronic obstructive pulmonary disease, unspecified; E11.9 Type 2 diabetes mellitus without complications; Z86.73 Personal history of transient ischemic attack (TIA), and cerebral infarction without residual deficits; Z87.891 Personal history of nicotine dependence; Z79.02 Long term (current) use of antithrombotics/antiplatelets; Z79.84 Long term (current) use of oral hypoglycemic drugs; Z79.899 Other long term (current) drug therapy; Z88.8 Allergy status to other drugs, medicaments and biological substances; Z75.8 Other problems related to medical facilities and other health care
CPT/HCPCS: 0241U; 71045; 99285; 99283